=== PATIENT | female | born 1990 | race Caucasian/White ===

== ENCOUNTER → 2016-08-30 | Outpatient (CLI) | payer MEDICAID, OTHER, SELFPAY ==
[2016-08-30 13:50] LABS: BASO % 0.2 % (0.0-1.0); EOS # 0.1 K/mm3 (0.0-0.50); EOS % 1.6 % (0.0-3.0); LARGE UNSTAINED CELL # 0.1 K/mm3 (0.0-0.4); LARGE UNSTAINED CELL % 0.7 % (0.0-4.0); LYMPH # 1.5 K/mm3 (1.5-6.5); LYMPH % 17.6 % (24.0-44.0); MEAN CORPUSCULAR HEMOGLOBIN 27.9 pg (27.0-33.0); MEAN CORPUSCULAR HGB CONC 32.4 g/dl (32.0-36.5); MEAN CORPUSCULAR VOLUME 86.1 fl (80.0-96.0); MONO # 0.3 K/mm3 (0.0-0.8); MONO % 3.7 % (0.0-5.0); NEUTROPHILS # 6.2 K/mm3 (1.8-7.7); NEUTROPHILS % 76.3 % (36.0-66.0); PLATELET COUNT, AUTOMATED 191 k/mm3 (150-450); RED CELL DISTRIBUTION WIDTH 14.2 % (11.5-14.5); WHITE BLOOD COUNT 8.2 K/mm3 (4.0-10.0)
[2016-08-30 14:16] LABS: CONTROL LINE INT CTR LINE PRESENT; HIV SCRN NEGATIVE (NEGATIVE); HIV SCRN1 NEGATIVE (NEGATIVE)
[2016-08-30 14:18] LABS: HBsAg Prenatal NEGATIVE (NEGATIVE)
== END ==
LOC: M LAB 11:45
PROVIDERS: ATTEND Advanced Practice Midwife
DX: Z34.83 Encounter for supervision of other normal pregnancy, third trimester (principal)

== ENCOUNTER → 2016-09-01 | Outpatient (CLI) | payer MEDICAID, OTHER, SELFPAY ==
--- NOTE | 2016-09-01 12:11 | REP ---
Clinical: Anatomical evaluation. Comparison: None . Findings: Examination demonstrates a single live intrauterine in cephalic presentation. motion is identified by technologist. Placenta is noted click posterior fundally and grade one without evidence for placenta previa or abruption. Amniotic fluid volume is normal. Cervix measures the 3.5 cm in length and appears closed. No evidence for nuchal cord. Gestational age by LMP 36 weeks 5 days with SRIRAM 09/24/2016 . Gestational age by current measurements 37 weeks 5 days with SRIRAM 09/17/2016 . FHR equals 141 beats per minute. BPD 9.6 cm 39 weeks 2 days HC 33.9 cm 38 weeks 6 days AC 32.7 cm 36 weeks 4 days FL 7.2 cm 36 weeks 5 days HL 6.4 cm 36 weeks 6 days HC/AC ratio 1.04 Estimated weight 3147 grams ( 62nd percentile). Anatomical assessment demonstrates normal structures including cranium, choroid plexus, cavum, cerebellum/posterior fossa, lungs, ventricular outflow tracts, diaphragm, stomach, kidneys/bladder, spine. Impression: Single live advanced gestation in cephalic presentation demonstrating appropriate interval growth. No gross abnormalities are identified. Signed by Donny Olivia MD 09/01/2016 12:03 P
== END ==
LOC: M RAD 10:11 → EDUNIT# 10:30
PROVIDERS: ATTEND Specialist
DX: Z36 Encounter for antenatal screening of mother (principal); Z3A.36 36 weeks gestation of pregnancy

== ENCOUNTER 2016-09-24 03:29 | Inpatient (IN) | payer OTHER ==
[~2016-09-24] VITALS: Ht 172.7 cm; Wt 82.0 kg
[2016-09-24] VITALS (14 sets, daily range): BP systolic 82–112; BP diastolic 51–69
[2016-09-24 04:57] LABS: BASO % 0.3 % (0.0-1.0); EOS # 0.2 K/mm3 (0.0-0.50); EOS % 1.7 % (0.0-3.0); LARGE UNSTAINED CELL # 0.1 K/mm3 (0.0-0.4); LARGE UNSTAINED CELL % 0.5 % (0.0-4.0); LYMPH # 1.4 K/mm3 (1.5-6.5); LYMPH % 15.9 % (24.0-44.0); MEAN CORPUSCULAR HEMOGLOBIN 27.1 pg (27.0-33.0); MEAN CORPUSCULAR HGB CONC 32.7 g/dl (32.0-36.5); MEAN CORPUSCULAR VOLUME 82.9 fl (80.0-96.0); MONO # 0.4 K/mm3 (0.0-0.8); MONO % 4.9 % (0.0-5.0); NEUTROPHILS # 6.7 K/mm3 (1.8-7.7); NEUTROPHILS % 76.7 % (36.0-66.0); PLATELET COUNT, AUTOMATED 191 k/mm3 (150-450); RED CELL DISTRIBUTION WIDTH 14.9 % (11.5-14.5); WHITE BLOOD COUNT 8.7 K/mm3 (4.0-10.0)
[2016-09-24] MEDS ORDERED: AMPICILLIN SOD 2 GM in D5W MINI-BAG PLUS 100 ML IV ONE (05:00)
[2016-09-24] MEDS ORDERED: AMPICILLIN 2 GM VIAL As Ordered ONE (05:12)
[2016-09-24] MEDS ORDERED: ACET50TA PO (08:22)
[2016-09-24] MEDS ORDERED: PRENTAB9 PO (08:22)
[2016-09-24] MEDS: AMPICILLIN SOD 1 GM in D5W MINI-BAG PLUS 50 ML IV SCH ×3 (09:40→18:25)
[2016-09-24] MEDS: miSOPROStol 50 MCG 1/2 TAB (S0191) PO SCH ×2 (09:40→13:48)
--- NOTE | 2016-09-24 11:57 | HPE ---
DATE OF ADMISSION: 09/24/2016 REASON FOR ADMISSION: Induction of labor. HISTORY OF PRESENT ILLNESS: Mrs. Haley is a 26-year-old, 3, para 2, who presents at 40 weeks and 0 days estimated gestational age by last menstrual period and confirmed by mid trimester ultrasound for induction of labor. Her course is remarkable for transfer of care to our practice at 36 weeks, otherwise has been unremarkable. PAST MEDICAL HISTORY: None. PAST SURGICAL HISTORY: She has had a cholecystectomy. She has had tonsillectomy and adenoidectomy. LEEP procedure. PAST OBSTETRICAL HISTORY: She is a 3, para 2. She has had two term vaginal deliveries, both complicated by hemorrhage. Her first was also complicated by fetus with Group B streptococcus (GBS) sepsis. She has proven to 8 pounds 1 ounce. MEDICATIONS: - vitamins - Tylenol ALLERGIES: She has no known drug allergies. SOCIAL HISTORY: She denies any alcohol, tobacco or drug use during the . PHYSICAL EXAMINATION: VITAL SIGNS: Stable. She is afebrile. She has a category 1 heart rate tracing. GENERAL APPEARANCE: Well appearing. No acute distress. LUNGS: Clear to auscultation bilaterally. CARDIOVASCULAR: Regular rate and rhythm. ABDOMEN: Soft, gravid, nontender. Estimated weight is 3700 grams. CERVICAL EXAM: She is 1 cm dilated, 25% effaced, -3 station. LABORATORY DATA: Blood type is A positive. Antibody screen is negative. Rubella immune. RPR nonreactive. Hepatitis surface antigen negative. HIV negative. Hepatitis C is nonreactive. Chlamydia and Gonorrhea screens were negative. She had a normal 1-hour Glucola. She is GBS positive. ASSESSMENT: 1. Mrs. Haley is a 26-year-old, 3, para 2 who presents at 40 weeks 0 days estimated gestational age. 2. Reassuring status. 3. GBS positive. PLAN: 1. Admit to labor and delivery. 2. CBC, RPR, type and screen. 3. Antibiotics for GBS prophylaxis. 4. The patient has been thoroughly counseled for induction of labor and discuss medications, as long as procedures performed in labor and delivery. She has also been counseled and consented for emergency surgery, blood products, anesthesia and desires to proceed with admission. 5. We will initiate her induction with 50 mcg of misoprostol.
[2016-09-24] MEDS ORDERED: miSOPROStol 100 MCG TAB (S0191) PO ONE (18:30)
[2016-09-24] MEDS ORDERED: miSOPROStol 50 MCG 1/2 TAB (S0191) As Ordered ONE (19:04)
[2016-09-24] MEDS ORDERED: miSOPROStol 50 MCG 1/2 TAB (S0191) PO SCH (19:15)
[2016-09-24] MEDS ORDERED: FENTANYL 2MCG/ML ROPIVACAINE 0.2% NACL 250 ML CADD As Ordered ONE (19:59)
[2016-09-24] MEDS ORDERED: NALOXONE INJ 0.4 MG/1 ML VIAL (J2310) IV PRN (20:30)
[2016-09-24] MEDS ORDERED: EPIDURAL COMMENT XX SCH (20:30)
[2016-09-24] MEDS ORDERED: EPIDURAL/PCA KEYS XX PRN (20:30)
[2016-09-24] MEDS ORDERED: diphenhydrAMINE INJ 50MG/ML VIAL (J1200) IV PRN (20:30)
[2016-09-24] MEDS ORDERED: REFRIGERATOR IV KEYS XX PRN (20:30)
[2016-09-24] MEDS ORDERED: ONDANSETRON 4MG/2ML VIAL (J2405) IV PRN (20:30)
[2016-09-24] MEDS ORDERED: FENTANYL/ROPIVACAINE/NACL CADD 250 ML EPIDURAL SCH (20:30)
[2016-09-24] MEDS ORDERED: LACTATED RINGER'S 1000 ML IV PRN (20:30)
[2016-09-24] MEDS ORDERED: ePHEDrine SULFATE 25 MG/5 ML(5MG/ML) SYRINGE IV PRN (20:30)
[2016-09-24] MEDS ORDERED: OXYTOCIN 30 UNITS IN 0.9% NaCl 500ML IV BAG (J2590) As Ordered ONE (20:34)
[2016-09-24] MEDS ORDERED: OXYTOCIN DRIP 30 UNITS in APPROPRIATE DILUENT 1 EA IV SCH (21:39)
[2016-09-24] MEDS ORDERED: ACETAMINOPHEN 500 MG TAB PO PRN (21:45)
[2016-09-24] MEDS ORDERED: MOM 30ML SUSPENSION UDC PO PRN (21:45)
[2016-09-24] MEDS ORDERED: MEASLES,MUMPS,RUBELLA VACCINE INJ (MMR-II) (90707) SC SCH (21:45)
[2016-09-24] MEDS ORDERED: DIBUCAINE 1% OINTMENT 30GM TOP PRN (21:45)
[2016-09-24] MEDS ORDERED: ANUSOL HC CREAM 30GM TOP PRN (21:45)
[2016-09-24] MEDS ORDERED: RHOGAM 300 MCG (1500 IU) INJ (J2790) IM SCH (21:45)
[2016-09-24] MEDS ORDERED: DOCUSATE SODIUM 100 MG CAP PO PRN (21:45)
[2016-09-24] MEDS ORDERED: METHYLERGONOVINE MALEATE 0.2 MG TAB PO PRN (21:45)
[2016-09-25] MEDS: IBUPROFEN 800 MG TAB PO PRN ×3 (00:12→19:21)
--- NOTE | 2016-09-25 02:49 | DN ---
DATE OF DELIVERY: 09/24/2016 TIME OF : 21:12 GENDER: Female. APGARS: 9/9 WEIGHT: 3416 grams, or 7 pounds 9 ounces. ESTIMATED BLOOD LOSS: 300 mL ANESTHESIA: Epidural. LACERATIONS: None. COUNTS: 5 laparotomy sponges accounted for prior to and after delivery. DELIVERY NOTE: On 09/24/2016, at 21:12, Mrs. Haley, a 26-year-old 3, para 3 had a spontaneous vaginal delivery of a liveborn female infant, Apgars 9 and 9, weight 3416 grams, or 7 pounds 9 ounces. Head was delivered left occiput anterior (CHAPARRITA) over an intact perineum followed by delivery of anterior and posterior shoulder. Infant was handed to mother with a good cry. Cord was clamped times two, was cut by the father of the baby under my direction. Placenta was then drained and delivered grossly intact. A premixed bag of 500 mL of normal saline with 30 units of Pitocin was then bolused along with uterine massage until the uterus was firm. On inspection, the cervix, vagina, and perineum were grossly intact and hemostatic. Mother and baby recovered in stable condition. The couple decided to name their daughter
[2016-09-25 05:52] VITALS: BP 96/57
[2016-09-25] MEDS: PRENATAL VITAMIN TAB PO SCH (09:32)
[2016-09-25 18:00] VITALS: BP 112/62
[2016-09-26 06:26] VITALS: BP 116/56
[2016-09-26] MEDS ORDERED: IBUP-1114 PO (07:39)
[2016-09-26] MEDS: PRENATAL VITAMIN TAB PO SCH (08:12)
[2016-09-26] MEDS ORDERED: INFLUENZA QUADRIVALENT PF VACCINE 0.5ML SYRINGE/VIAL (90686) IM ONE ×2 (09:00)
[2016-09-26] MEDS ORDERED: ADACEL/BOOSTRIX VACCINE (DIPHTH/PERTUSS/ACELL/TETANUS)0.5ML SYR (90715) IM ONE ×2 (09:00)
== END 2016-09-26 12:10 | disposition home or self-care (01) | DRG 775 ==
LOC: M LDI 03:29 → M OBS 23:31
PROVIDERS: ADMIT Obstetrics & Gynecology; ATTEND Obstetrics & Gynecology
PROC: 10E0XZZ Delivery of Products of Conception, External Approach (ICD-10-PCS; principal; 2016-09-24)
PROC: 3E0DXGC Introduction of Other Therapeutic Substance into Mouth and Pharynx, External Approach (ICD-10-PCS; 2016-09-24)
DX: O48.0 Post-term pregnancy (principal); Z37.0 Single live birth; Z3A.40 40 weeks gestation of pregnancy; O99.820 Streptococcus B carrier state complicating pregnancy

== ENCOUNTER 2017-01-24 17:06 | Emergency (ER) | payer MEDICAID, OTHER ==
[~2017-01-24] VITALS: Ht 175.3 cm; Wt 81.5 kg
[~2017-01-24 17:06] MED LIST: ACET50TA PO; IBUP-1114 PO; PRENTAB9 PO
[2017-01-24 19:57] VITALS: BP 111/69
--- NOTE | 2017-01-25 01:24 | REP ---
Clinical: Trauma. Technique: AP, lateral, bilateral oblique and sunrise views left knee . Findings: The osseous structures and joint spaces are intact and normal. There is no evidence for acute fracture or dislocation. No joint effusion is appreciated. Surrounding soft tissues are unremarkable. No subcutaneous emphysema or radiodense foreign body. Impression: Normal examination. No acute fracture or dislocation. Signed by Donny Olivia MD 01/25/2017 01:16 A
== END 2017-01-24 20:09 | disposition home or self-care (01) ==
LOC: M ED 17:06
DX: S83.92XA Sprain of unspecified site of left knee, initial encounter (principal); W50.0XXA Accidental hit or strike by another person, initial encounter; Y92.099 Unspecified place in other non-institutional residence as the place of occurrence of the external cause; Y93.9 Activity, unspecified; Y99.9 Unspecified external cause status

== ENCOUNTER 2017-04-12 05:00 | Emergency (ER) | payer OTHER ==
[~2017-04-12] VITALS: Ht 172.7 cm; Wt 79.0 kg
[2017-04-12 06:03] VITALS: BP 110/62
== END 2017-04-12 06:35 | disposition home or self-care (01) ==
LOC: M ED 05:00
DX: S61.511A Laceration without foreign body of right wrist, initial encounter (principal); S61.411A Laceration without foreign body of right hand, initial encounter; W25.XXXA Contact with sharp glass, initial encounter; Y92.099 Unspecified place in other non-institutional residence as the place of occurrence of the external cause; Y93.89 Activity, other specified; Y99.9 Unspecified external cause status

== ENCOUNTER → 2018-03-05 | Outpatient (REF) ==
[2018-03-06 08:56] LABS: RUBELLA IgG QUALITATIVE IMMUNE (IMMUNE)
[2018-03-06 14:26] LABS: RUBEOLA IgG ANTIBODY 68.3 AU/mL (Immune >29.9)
== END ==
LOC: M LAB 13:54
DX: Z00.00 Encounter for general adult medical examination without abnormal findings (principal)

== ENCOUNTER → 2018-05-15 | Outpatient (CLI) | payer OTHER ==
[2018-05-15 14:33] LABS: BASO % 0.4 % (0.0-1.0); EOS # 0.1 10^3/uL (0.0-0.50); EOS % 1.3 % (0.0-3.0); HEMATOCRIT 42.1 % (36.0-47.0); IMMATURE GRANULOCYTE % 0.3 % (0-3.0); LYMPH # 1.6 10^3/uL (1.5-6.5); LYMPH % 21.2 % (24.0-44.0); MEAN CORPUSCULAR HEMOGLOBIN 28.4 pg (27.0-33.0); MEAN CORPUSCULAR HGB CONC 33.3 g/dl (32.0-36.5); MEAN CORPUSCULAR VOLUME 85.4 fl (80.0-96.0); MONO # 0.3 10^3/uL (0.0-0.8); MONO % 4.6 % (0.0-5.0); NEUTROPHILS # 5.4 10^3/uL (1.8-7.7); NEUTROPHILS % 72.2 % (36.0-66.0); PLATELET COUNT, AUTOMATED 245 10^3/uL (150-450); RED BLOOD COUNT 4.93 10^6/uL (4.00-5.40); RED CELL DISTRIBUTION WIDTH 13.2 % (11.5-14.5); WHITE BLOOD COUNT 7.4 10^3/uL (4.0-10.0)
[2018-05-15 15:26] LABS: HEPATITIS C VIRUS ABY INDEX < 0.0 INDEX (<0.8)
[2018-05-15 15:26] LABS: HBsAg Prenatal NEGATIVE (NEGATIVE); HIV 1&2 SCREEN CENTAUR NEGATIVE (NEGATIVE); RUBELLA IgG QUALITATIVE IMMUNE (IMMUNE)
[2018-05-15 16:42] LABS: CHLAMYDIA DNA AMPLIFICATION NEGATIVE (NEGATIVE); GC DNA AMPLIFICATION NEGATIVE (NEGATIVE)
== END ==
LOC: M SMT 10:07
DX: Z34.81 Encounter for supervision of other normal pregnancy, first trimester (principal); Z36.89 Encounter for other specified antenatal screening; Z3A.12 12 weeks gestation of pregnancy
CPT/HCPCS: 86762

== ENCOUNTER → 2018-07-01 | Outpatient (CLI) | payer OTHER ==
[~2018-07-01] MED LIST changes: -ACET50TA PO; +MAPA500T17 PO
--- NOTE | 2018-07-02 17:10 | REP ---
Obstetric sonography: History: Supervision of for anatomy. Findings: Scanning through the gravid uterus demonstrates a viable single intrauterine gestation in a cephalic lie. motion is observed and heart rate is recorded at 139 beats per minute. A fundal placenta is seen grade 0 without evidence of previa or abruption. Amniotic fluid is subjectively normal. Closed cervical length is 3.0 cm, measured transabdominally, 2.6 cm in length with Valsalva. No extrauterine abnormalities observed. No anomaly is seen. face and profile and spine are less than optimally seen today however due to position. The following additional anatomic structures are identified and felt to be sonographically unremarkable: cranium, choroid plexus, cavum, cerebellum and posterior fossa, lungs, four-chamber heart with left and right ventricular outflow tract views, diaphragm, left-sided stomach, abdominal wall cord insertion, three-vessel umbilical cord, kidneys and bladder, upper and lower extremities. Biometry chart: BPD 4.4 cm = 19 weeks 1 day HC 17.3 cm = 19 weeks 6 days AC 15.1 cm = 20 weeks 2 days FL 3.0 cm = 19 weeks 1 day HL 3.3 cm = 21 weeks 2 days CD 2.0 cm = 19 weeks 4 days HC/AC ratio normal 1.15. Cephalic index normal 0.68. Estimated weight 310 grams 0 pounds 10 ounces 42nd percentile for 19 weeks 6 days. Impression: Viable single intrauterine gestation at 19 weeks 6 days by today's composite criteria. SRIRAM by today's sonography November 19, 2018. Face and profile and spine are less than optimally seen due to position. Electronically Signed by Henry Perea MD 07/02/2018 06:36 P
== END ==
LOC: M LRY 13:30
PROVIDERS: ATTEND Obstetrics & Gynecology
DX: Z36.89 Encounter for other specified antenatal screening (principal); Z3A.19 19 weeks gestation of pregnancy

== ENCOUNTER → 2018-07-22 | Outpatient (CLI) | payer OTHER ==
[~2018-07-22] MED LIST changes: -MAPA500T17 PO; +MAPA500T2 PO
--- NOTE | 2018-07-23 03:53 | REP ---
Clinical: Anatomical evaluation. Comparison: 07/01/2018 . Findings: Examination demonstrates a single live intrauterine in cephalic presentation. motion is identified by technologist. Placenta is noted fundal and grade grade zero without evidence for placenta previa or abruption. Amniotic fluid volume is normal. Cervix measures 3.1 cm in length and appears closed. No evidence for nuchal cord. Gestational age by LMP 22 weeks 2 days with SRIRAM 11/23/2018 . Gestational age by current measurements 22 weeks 4 days with SRIRAM 11/21/2018 . FHR equals 141 beats per minute. Estimated weight 540 grams ( 44th percentile). Anatomical assessment demonstrates normal structures including cranium, choroid plexus, cerebellum/posterior fossa, facial features, lungs, four-chamber heart/ventricular outflow tracts, diaphragm, stomach, cord insertion/three-vessel cord, kidneys/bladder, spine, and extremities. Impression: 1. Single live intrauterine in cephalic presentation demonstrating appropriate interval growth. 2. In conjunction with prior examination anatomical assessment is complete and normal. Electronically Signed by Donny Olivia MD 07/23/2018 03:44 A
== END ==
LOC: M LRY 08:29
PROVIDERS: ATTEND Obstetrics & Gynecology
DX: Z34.82 Encounter for supervision of other normal pregnancy, second trimester (principal); Z3A.22 22 weeks gestation of pregnancy

== ENCOUNTER → 2018-08-28 | Outpatient (CLI) | payer OTHER ==
[2018-08-28 16:55] LABS: HEMATOCRIT 32.9 % (36.0-47.0); HEMOGLOBIN 10.6 g/dl (12.0-15.5); MEAN CORPUSCULAR HEMOGLOBIN 28.1 pg (27.0-33.0); MEAN CORPUSCULAR HGB CONC 32.2 g/dl (32.0-36.5); MEAN CORPUSCULAR VOLUME 87.3 fl (80.0-96.0); PLATELET COUNT, AUTOMATED 194 10^3/uL (150-450); RED BLOOD COUNT 3.77 10^6/uL (4.00-5.40); WHITE BLOOD COUNT 9.3 10^3/uL (4.0-10.0)
== END ==
LOC: M LAB 15:20
PROVIDERS: ATTEND Advanced Practice Midwife
DX: Z34.82 Encounter for supervision of other normal pregnancy, second trimester (principal)

== ENCOUNTER 2018-09-17 18:08 | Outpatient (CLI) | payer OTHER ==
[~2018-09-17] VITALS: Ht 172.7 cm; Wt 89.4 kg
[2018-09-17 18:26] VITALS: BP 152/96
[2018-09-17] MEDS ORDERED: PRENTAB9 PO (18:30)
[2018-09-17] MEDS ORDERED: guaiFENesin SYRUP 200 MG/10 ML UDC PO PRN (19:30)
[2018-09-17 19:34] LABS: HEMATOCRIT 31.3 % (36.0-47.0); HEMOGLOBIN 10.2 g/dl (12.0-15.5); MEAN CORPUSCULAR HEMOGLOBIN 27.9 pg (27.0-33.0); MEAN CORPUSCULAR HGB CONC 32.6 g/dl (32.0-36.5); MEAN CORPUSCULAR VOLUME 85.5 fl (80.0-96.0); PLATELET COUNT, AUTOMATED 171 10^3/uL (150-450); RED BLOOD COUNT 3.66 10^6/uL (4.00-5.40); WHITE BLOOD COUNT 7.2 10^3/uL (4.0-10.0)
[2018-09-17] MEDS ORDERED: PSEUDOEPHEDRINE 30 MG TAB PO PRN (19:45)
[2018-09-17 19:56] LABS: ALBUMIN 2.8 GM/DL (3.2-5.2); ALT/SGPT 11 U/L (12-78); BILIRUBIN,TOTAL 0.3 MG/DL (0.2-1.0); BLOOD UREA NITROGEN 5 MG/DL (7-18); CARBON DIOXIDE LEVEL 23 MEQ/L (21-32); CHLORIDE LEVEL 110 MEQ/L (98-107); CREATININE FOR GFR 0.45 MG/DL (0.55-1.30); GLOMERULAR FILTRATION RATE > 60.0 (>60); GLUCOSE, FASTING 72 MG/DL (70-100); LDH LACTATE DEHYDROGENASE 176 U/L (84-246); SODIUM LEVEL 141 MEQ/L (136-145); TOTAL PROTEIN 6.1 GM/DL (6.4-8.2); URIC ACID 3.6 MG/DL (2.6-6.0)
[2018-09-17 21:01] LABS: INFLUENZA A AMPLIFICATION POSITIVE (NEGATIVE); INFLUENZA B AMPLIFICATION NEGATIVE (NEGATIVE)
[2018-09-17 21:32] LABS: TOTAL PROTEIN,RANDOM URINE 11.8 MG/DL (0.0-12.0)
[2018-09-17] MEDS ORDERED: OSEL75CA PO (21:32)
[2018-09-17] MEDS ORDERED: OSELTAMIVIR PHOSPHATE 75 MG CAP (TAMIFLU) PO ONE (21:45)
== END 2018-09-17 22:00 | disposition home or self-care (01) ==
LOC: M LDO 18:08
PROVIDERS: ATTEND Obstetrics & Gynecology
DX: O21.2 Late vomiting of pregnancy (principal); O99.89 Other specified diseases and conditions complicating pregnancy, childbirth and the puerperium; R05 Cough; O99.519 Diseases of the respiratory system complicating pregnancy, unspecified trimester; J06.9 Acute upper respiratory infection, unspecified; Z3A.30 30 weeks gestation of pregnancy

== ENCOUNTER 2018-11-19 17:54 | Inpatient (IN) | payer OTHER ==
[2018-11-19] VITALS (8 sets, daily range): BP systolic 95–121; BP diastolic 53–63
[~2018-11-19] VITALS: Ht 175.3 cm; Wt 89.4 kg
[~2018-11-19 17:54] MED LIST changes: +OSEL75CA PO
[2018-11-19] MEDS ORDERED: TUMS500C PO (18:20)
[2018-11-19 19:07] LABS: HEMATOCRIT 31.8 % (36.0-47.0); HEMOGLOBIN 10.1 g/dl (12.0-15.5); MEAN CORPUSCULAR HEMOGLOBIN 25.4 pg (27.0-33.0); MEAN CORPUSCULAR HGB CONC 31.8 g/dl (32.0-36.5); MEAN CORPUSCULAR VOLUME 80.1 fl (80.0-96.0); PLATELET COUNT, AUTOMATED 277 10^3/uL (150-450); RED BLOOD COUNT 3.97 10^6/uL (4.00-5.40); WHITE BLOOD COUNT 11.3 10^3/uL (4.0-10.0)
[2018-11-19] MEDS ORDERED: PENICILLIN G POTASSIUM IV 5 MU in D5W MINI-BAG PLUS 100 ML IV STA (20:09)
[2018-11-19] MEDS ORDERED: OXYTOCIN DRIP 30 UNITS in APPROPRIATE DILUENT 1 EA IV SCH (20:15)
[2018-11-19] MEDS: LR 1,000 ML IV SCH (20:54)
--- NOTE | 2018-11-19 23:23 | NUR ---
L&D Note: S: Doing well w/o complaints. Pain is manageable. O: vss, AF FHR 160s, moderate variability and spont accelerations. Contractions q3-4mins. pitocin 4mU Gen: well appearing cx: 1-2/50/-2 Cook cath placed 60/30ml A/P:28yo at 39w3d wks undergoing IOL reassuring status -will reevaluate in 4-5 hrs, or after cook cath comes out -good candidate for epidural Shruthi MD Siva
--- NOTE | 2018-11-19 23:52 | HPE ---
DATE OF ADMISSION: 11/19/2018 REASON FOR ADMISSION: Induction of labor. HISTORY OF PRESENT ILLNESS: Ms. Haley is a 28-year-old 4, para 3 who presents at 39 weeks 3 days estimated gestational age by last menstrual period confirmed by first trimester ultrasound who initially presented after falling down a flight of stairs. She reports that she slipped, collided on her side down approximately 6 or 7 steps. She denies any vaginal bleeding or leakage of fluid. She does report contractions as well as pelvic pain. She reports active movement. Her course has been unremarkable. She initiated care in her first trimester, has been appropriate throughout. PAST MEDICAL HISTORY: None. PAST SURGICAL HISTORY: 1. Cholecystectomy. 2. Loop electrosurgical excision procedure (LEEP) procedure. PAST OBSTETRICAL HISTORY: She is a 4, para 3. She has had three term vaginal deliveries. Her first delivery was complicated by hemorrhage as well as GBS sepsis. She is proven to 8 pounds 1 ounce. MEDICATIONS: Include vitamins. ALLERGIES: She has no known drug allergies. SOCIAL HISTORY: Denies any alcohol, tobacco or drug use during her . PHYSICAL EXAMINATION: Vital signs: Stable. She is afebrile. She has a heart rate tracing with heart rate 140s with spontaneous accelerations, moderate variability, no decelerations. She has contractions on tocometer approximately every 5-7 minutes. General appearance: No acute distress. Lungs Her lungs are clear to auscultation bilaterally. Cardiovascular: Heart regular rate rhythm. Abdomen is gravid, nontender. Cervical exam: She is 1-2 cm dilated, 50% effaced -3 station. LABS: Her blood type is A+, antibody screen is negative. Rubella is immune. RPR is nonreactive. Hepatitis surface antigen is negative. HIV is negative. Hepatitis C is nonreactive. Chlamydia and gonorrhea screens are negative. She had a normal 1-hour Glucola. ASSESSMENT: 1. Ms. Haley is a 28-year-old 4, para 3 at 39 weeks and 3 days estimated gestational age who is status post a fall and currently bandar. 2. Reassuring status. 3. History of sepsis. PLAN: Considering her injury earlier today along with the fact that she is bandar several hours after her fall, discussion was had for induction of labor versus continued observation. Discussed risks, benefits of each option. After discussion, couple has decided to proceed with an induction of labor. I discussed her risks as well as benefits and alternatives to induction of labor. I discussed medications as well as procedures performed in labor and delivery. All questions were answered, and they decided to proceed with induction with Pitocin. KODAK
[2018-11-20] VITALS (77 sets, daily range): BP systolic 77–128; BP diastolic 42–71
[2018-11-20] MEDS: LR 1,000 ML IV SCH ×3 (00:32→06:05)
[2018-11-20] MEDS: PENICILLIN G POTASSIUM IV 2.5 MU in APPROPRIATE DILUENT 1 EA IV SCH ×3 (01:02→09:11)
[2018-11-20] MEDS ORDERED: FENTANYL 2MCG/ML ROPIVACAINE 0.2% IN 0.9% NACL 100ML IVBAG As Ordered ONE (01:34)
[2018-11-20] MEDS ORDERED: ePHEDrine SULFATE 25 MG/5 ML(5MG/ML) SYRINGE As Ordered ONE (02:15)
[2018-11-20] MEDS ORDERED: ONDANSETRON 4MG/2ML VIAL (J2405) IV PRN (02:30)
[2018-11-20] MEDS ORDERED: REFRIGERATOR IV KEYS XX PRN (02:30)
[2018-11-20] MEDS ORDERED: FENTANYL/ROPIVACAINE/NACL BAG 100 ML EPIDURAL SCH (02:30)
[2018-11-20] MEDS ORDERED: NALOXONE INJ 0.4 MG/1 ML VIAL (J2310) IV PRN (02:30)
[2018-11-20] MEDS ORDERED: LACTATED RINGER'S 1000 ML IV PRN (02:30)
[2018-11-20] MEDS ORDERED: ePHEDrine SULFATE 25 MG/5 ML(5MG/ML) SYRINGE IV PRN (02:30)
[2018-11-20] MEDS ORDERED: diphenhydrAMINE INJ 50MG/ML VIAL (J1200) IV PRN (02:30)
[2018-11-20] MEDS ORDERED: EPIDURAL/PCA KEYS XX PRN (02:30)
[2018-11-20] MEDS ORDERED: EPIDURAL COMMENT XX SCH (02:30)
--- NOTE | 2018-11-20 06:37 | NUR ---
L&D Note: S: Doing well w/o complaints. Comfortable after epidural. O: vss, AF FHR 130s, moderate variability and spont accelerations. Contractions q3-4mins. pitocin 12mU Gen: well appearing cx: 4/75/-2, AROM clear A/P:28yo at 39w3d wks undergoing IOL reassuring status -anticipate Shruthi Paniagua MD
[2018-11-20] MEDS ORDERED: LR 500 ML IV ONE (11:30)
[2018-11-20] MEDS ORDERED: ePHEDrine INJ 50 MG/ML VIAL IV PRN (11:30)
[2018-11-20] MEDS ORDERED: OXYTOCIN 30 UNITS IN 0.9% NaCl 500ML IV BAG (J2590) As Ordered ONE (13:36)
[2018-11-20] MEDS ORDERED: OXYTOCIN DRIP 30 UNITS in APPROPRIATE DILUENT 1 EA IV SCH ×4 (14:42)
[2018-11-20] MEDS ORDERED: DOCUSATE SODIUM 100 MG CAP PO PRN (14:45)
[2018-11-20] MEDS ORDERED: METHYLERGONOVINE MALEATE 0.2 MG/ML VIAL (J2210) IM ONE (14:45)
[2018-11-20] MEDS ORDERED: ACETAMINOPHEN TAB 650MG DOSE (2X325MG) PO PRN (14:45)
[2018-11-20] MEDS ORDERED: IBUPROFEN 800 MG TAB PO PRN (14:45)
[2018-11-20] MEDS ORDERED: RHOGAM 300 MCG (1500 IU) INJ (J2790) IM SCH (14:45)
[2018-11-20] MEDS ORDERED: DIBUCAINE 1% OINTMENT 30GM TOP PRN (14:45)
[2018-11-20] MEDS ORDERED: METHYLERGONOVINE MALEATE 0.2 MG TAB PO PRN (14:45)
[2018-11-20] MEDS ORDERED: MEASLES,MUMPS,RUBELLA VACCINE INJ (MMR-II) (90707) SC SCH (14:45)
[2018-11-20] MEDS ORDERED: ACETAMINOPHEN 500 MG TAB PO PRN (14:45)
--- NOTE | 2018-11-20 14:46 | DN ---
DATE OF DELIVERY: Nellie is 28-year-old, 4, para 4-0-0-4 now, was admitted to labor and delivery for induction of labor. Intravenous (IV) Pitocin was used and labor did ensue. She used an epidural for her labor coping. She progressed to full dilation at 1237 hours. She pushed to a normal spontaneous vaginal delivery of a live male in left occiput anterior (CHAPARRITA) position with restitution to left occiput transverse (LOT) position at 1255 hours. There was a nuchal cord times one loose reduced manually at the time of delivery. [place] shoulders delivered spontaneously and the corpus immediately followed. He was placed on the maternal abdomen crying and active. The cord was clamped times two and cut by the father of the baby under my direction. Spontaneous expulsion of an intact placenta with three-vessel cord by Schultze mechanism was at 1304 hours. Uterine hemostasis achieved with IV Pitocin rapid infusion, uterine fundal massage, Methergine 0.2 mg intramuscular (IM). Estimated blood loss 350 mL. Perineum and vagina inspected. Noted to have bilateral labial abrasions. No need for repair. Her abrasions were hemostatic. male weighed 8 pounds 9 ounces (3890 grams), score 8/9. At the close of delivery, lap counts, needle counts and instrument counts were correct and verified.
[2018-11-20] MEDS: SLF 3 ML SYR IV SCH ×2 (15:00→21:14)
[2018-11-20] MEDS ORDERED: SLF 3 ML SYR IV PRN (16:30)
[2018-11-20] MEDS: IBUPROFEN 600 MG TAB PO PRN (20:22)
[2018-11-21] MEDS: IBUPROFEN 600 MG TAB PO PRN ×3 (05:34→19:29)
[2018-11-21 06:25] VITALS: BP 95/53
[2018-11-21] MEDS: PRENATAL VITAMINS CHEWABLE TABLET PO SCH (09:01)
[2018-11-21 18:11] VITALS: BP 107/63
[2018-11-22] MEDS: IBUPROFEN 600 MG TAB PO PRN (05:00)
[2018-11-22 06:00] VITALS: BP 104/56
[2018-11-22] MEDS: PRENATAL VITAMINS CHEWABLE TABLET PO SCH (07:51)
[2018-11-22] MEDS ORDERED: IBUP-1114 PO (08:22)
== END 2018-11-22 13:20 | disposition home or self-care (01) | DRG 560 ==
LOC: M LDO 17:54 → M LDI 19:51 → M OBS 11-20 15:30
PROVIDERS: ADMIT Obstetrics & Gynecology; ATTEND Advanced Practice Midwife
PROC: 3E033VJ Introduction of Other Hormone into Peripheral Vein, Percutaneous Approach (ICD-10-PCS; 2018-11-19)
PROC: 10E0XZZ Delivery of Products of Conception, External Approach (ICD-10-PCS; principal; 2018-11-20)
DX: O9A.22 Injury, poisoning and certain other consequences of external causes complicating childbirth (principal); O69.81X0 Labor and delivery complicated by cord around neck, without compression, not applicable or unspecified; Z3A.39 39 weeks gestation of pregnancy; Z37.0 Single live birth; W10.9XXA Fall (on) (from) unspecified stairs and steps, initial encounter; S39.93XA Unspecified injury of pelvis, initial encounter; Y92.009 Unspecified place in unspecified non-institutional (private) residence as the place of occurrence of the external cause; O99.824 Streptococcus B carrier state complicating childbirth

== ENCOUNTER → 2019-02-28 | Outpatient (CLI) | payer OTHER ==
[~2019-02-28] MED LIST changes: +TUMS500C PO
--- NOTE | 2019-02-28 10:33 | REP ---
OBSTETRIC SONOGRAPHY: HISTORY: Supervision of dating and viability. FINDINGS: Transabdominal scanning demonstrates a single living intrauterine gestation. The crown-rump length of the embryonic pole is 11 mm. This corresponds with a gestational age estimate of 7 weeks 2 days. heart rate is recorded at 152 beats per minute. There is a small subchorionic hemorrhage visible 6 x 21 x 8 mm. No extrauterine abnormalities observed. IMPRESSION: Viable single intrauterine gestation at 7 weeks 2 days by crown-rump length. SRIRAM by sonography October 15, 2019. Small subchorionic fluid collection consistent with hemorrhage. Electronically Signed by Henry Perea MD 02/28/2019 10:54 A
== END ==
LOC: M RAD 07:36
PROVIDERS: ATTEND Nurse Practitioner Family
DX: Z32.01 Encounter for pregnancy test, result positive (principal)

== ENCOUNTER → 2019-07-22 | Outpatient (REF) | payer OTHER | LOC: M SFHCWAGY 11:33 | PROVIDERS: ATTEND Advanced Practice Midwife | DX: Z12.4 Encounter for screening for malignant neoplasm of cervix (principal) ==

== ENCOUNTER → 2019-08-19 | Outpatient (REF) | payer OTHER ==
[2019-08-19 11:32] LABS: BASO % 0.3 % (0.0-1.0); EOS # 0.4 10^3/uL (0.0-0.5); EOS % 6.2 % (0.0-3.0); HEMATOCRIT 41.3 % (36.0-47.0); LYMPH # 1.6 10^3/uL (1.5-5.0); LYMPH % 27.5 % (24.0-44.0); MEAN CORPUSCULAR HEMOGLOBIN 27.3 pg (27.0-33.0); MEAN CORPUSCULAR HGB CONC 31.5 g/dl (32.0-36.5); MEAN CORPUSCULAR VOLUME 86.8 fl (80.0-96.0); MONO # 0.4 10^3/uL (0.0-0.8); NEUTROPHILS # 3.5 10^3/uL (1.5-8.5); NEUTROPHILS % 59.8 % (36.0-66.0); PLATELET COUNT, AUTOMATED 229 10^3/uL (150-450); RED BLOOD COUNT 4.76 10^6/uL (4.00-5.40); WHITE BLOOD COUNT 5.8 10^3/uL (4.0-10.0)
[2019-08-19 11:47] LABS: ALT/SGPT 21 U/L (12-78); BILIRUBIN,TOTAL 0.3 MG/DL (0.2-1.0); BLOOD UREA NITROGEN 10 MG/DL (7-18); CALCIUM LEVEL 9.1 MG/DL (8.5-10.1); CARBON DIOXIDE LEVEL 27 MEQ/L (21-32); CHLORIDE LEVEL 109 MEQ/L (98-107); CHOLESTEROL LEVEL 160 MG/DL (<200); CHOLESTEROL RISK RATIO 3.636 (<5); CREATININE FOR GFR 0.73 MG/DL (0.55-1.30); FOLATE 9.1 NG/ML; FREE T4 1.07 NG/DL (0.76-1.46); GLOMERULAR FILTRATION RATE > 60.0 (>60); GLUCOSE, FASTING 92 MG/DL (70-100); HDL CHOLESTEROL 44 MG/DL (>40); LDL CHOLESTEROL 91 MG/DL (<100); NON-HDL-C 116 MG/DL; POTASSIUM SERUM 4.1 MEQ/L (3.5-5.1); SODIUM LEVEL 142 MEQ/L (136-145); TOTAL 25(OH) VITAMIN D 16.2 NG/ML (30.0-100.0); TOTAL PROTEIN 7.4 GM/DL (6.4-8.2); TRIGLYCERIDES LEVEL 126 MG/DL (<150); VITAMIN B12 LEVEL 314 PG/ML
[2019-08-19 11:51] LABS: HEMOGLOBIN A1c 5.5 %
== END ==
LOC: M LAB REF 11:12
PROVIDERS: ATTEND Nurse Practitioner Family
DX: Z13.29 Encounter for screening for other suspected endocrine disorder (principal); F41.8 Other specified anxiety disorders; E66.9 Obesity, unspecified; R51 Headache

== ENCOUNTER → 2020-01-20 | Outpatient (REF) | payer OTHER | LOC: M LAB REF 17:11 | PROVIDERS: ATTEND Physician Assistant | DX: R35.0 Frequency of micturition (principal); N30.00 Acute cystitis without hematuria; M54.5 Low back pain ==

== ENCOUNTER → 2020-09-02 | Outpatient (REF) | payer OTHER ==
[~2020-09-02] MED LIST changes: +FLUO20CA22; +JUNE1.5T
[2020-09-02 14:21] LABS: HEMOGLOBIN A1c 5.3 %
[2020-09-02 14:36] LABS: FREE T4 0.83 NG/DL (0.76-1.46); THYROID STIMULATING HORMONE 2.92 uIU/ML (0.358-3.740)
[2020-09-02 14:38] LABS: FOLLICLE STIMULATING HORMONE 5.3 mIU/mL; LUTEINIZING HORMONE 1.8 mIU/mL; PROLACTIN 6.8 NG/ML
[2020-09-03 16:08] LABS: DEHYDROEPIANDROSTERONE SULFATE 37.5 ug/dL (84.8-378.0); TESTOSTERONE FREE (DIRECT) 0.7 pg/mL (0.0-4.2)
== END ==
LOC: M PLALAB 11:09
PROVIDERS: ATTEND Obstetrics & Gynecology
DX: N92.6 Irregular menstruation, unspecified (principal)
CPT/HCPCS: 36415; 82627; 83001; 83002; 83036; 84146; 84402; 84403; 84439; 84443; G0463

== ENCOUNTER 2020-09-08 17:01 | Emergency (ER) | payer OTHER ==
[~2020-09-08] VITALS: Ht 175.3 cm; Wt 97.4 kg
[~2020-09-08 17:01] MED LIST changes: -FLUO20CA22; -JUNE1.5T
--- OUTSIDE RECORDS SUMMARY | 2020-09-08 17:06 | CCD ---
Author Author [facility] Organization [facility] Address Unknown Phone Unavailable Care Team Providers Care Stove Refinisher Name Role Phone Cindy Alejandra Unavailable [phone] Casa, Karla PHLEBOTOMIST ASSOCIATE PHLEBOTOMIST ASSOCIATE Unavailable Unavailable [place], A Karla PHLEBOTOMIST ASSOCIATE Unavailable Unavailable Casa, A Karla PHLEBOTOMIST ASSOCIATE Unavailable Unavailable Casa, A Karla PHLEBOTOMIST ASSOCIATE Unavailable Unavailable Casa, A Karla PHLEBOTOMIST ASSOCIATE Unavailable Unavailable Casa, A Karla PHLEBOTOMIST ASSOCIATE Unavailable Unavailable Casa, A Karla PHLEBOTOMIST ASSOCIATE Unavailable Unavailable Casa, A Karla PHLEBOTOMIST ASSOCIATE Unavailable Unavailable Casa, A Karla PHLEBOTOMIST ASSOCIATE Unavailable Unavailable Casa, A Karla PHLEBOTOMIST ASSOCIATE Unavailable Unavailable Casa, A Karla PHLEBOTOMIST ASSOCIATE Unavailable Unavailable [place], A Karla PHLEBOTOMIST ASSOCIATE Unavailable Unavailable [place], A Karla PHLEBOTOMIST ASSOCIATE Unavailable Unavailable Casa, A Karla PHLEBOTOMIST ASSOCIATE Unavailable Unavailable Casa, A Karla PHLEBOTOMIST ASSOCIATE Unavailable Unavailable Casa, A Karla PHLEBOTOMIST ASSOCIATE Unavailable Unavailable Casa, A Karla PHLEBOTOMIST ASSOCIATE Unavailable Unavailable Casa, A Karla PHLEBOTOMIST ASSOCIATE Unavailable Unavailable Casa, A Karla PHLEBOTOMIST ASSOCIATE Unavailable Unavailable Casa, A Karla PHLEBOTOMIST ASSOCIATE Unavailable Unavailable Casa, A Karla PHLEBOTOMIST ASSOCIATE Unavailable Unavailable Casa, A Karla PHLEBOTOMIST ASSOCIATE Unavailable Unavailable Casa, A Karla PHLEBOTOMIST ASSOCIATE Unavailable Unavailable Casa, A Karla PHLEBOTOMIST ASSOCIATE Unavailable Unavailable Casa, A Karla PHLEBOTOMIST ASSOCIATE Unavailable Unavailable Casa, A Karla PHLEBOTOMIST ASSOCIATE Unavailable Unavailable Casa, A Karla PHLEBOTOMIST ASSOCIATE Unavailable Unavailable Casa, A Karla PHLEBOTOMIST ASSOCIATE Unavailable Unavailable Casa, A Karla PHLEBOTOMIST ASSOCIATE Unavailable Unavailable Re-disclosure Warning The records that you are about to access may contain information from federally-assisted alcohol or drug abuse programs. If such information is present, then the following federally mandated warning applies: This information has been disclosed to you from records protected by federal confidentiality rules (42 CFR part 2). The federal rules prohibit you from making any further disclosure of this information unless further disclosure is expressly permitted by the written consent of the person to whom it pertains or as otherwise permitted by 42 CFR part 2. A general authorization for the release of medical or other information is NOT sufficient for this purpose. The Federal rules restrict any use of the information to criminally investigate or prosecute any alcohol or drug abuse patient.The records that you are about to access may contain highly sensitive health information, the redisclosure of which is protected by Article 27-F of the [facility] Public Health law. If you continue you may have access to information: Regarding HIV / AIDS; Provided by facilities licensed or operated by the [facility] Office of Mental Health; or Provided by the [facility] Office for People With Developmental Disabilities. If such information is present, then the following [facility] mandated warning applies: This information has been disclosed to you from confidential records which are protected by state law. State law prohibits you from making any further disclosure of this information without the specific written consent of the person to whom it pertains, or as otherwise permitted by law. Any unauthorized further disclosure in violation of state law may result in a fine or correction sentence or both. A general authorization for the release of medical or other information is NOT sufficient authorization for further disc losure. Allergies and Adverse Reactions Type Description Substance Reaction Status Data Source(s ) Allergy to substance Allergy to substance Allergy to substance EL ([facility]) Encounters Encounter Providers Location Date Indications Data Source(s ) Cindy Alejandra LMSW: [address] [place] [id number], Ph. Attender: Cindy SOTO - [facility] Medical 05/25/2020 12:00:00 AM EST [facility] ([facility]) Outpatient Attender: BENEDICT MCMULLEN 04/09/2020 03:44:00 P M EDT [facility] Outpatient Attender: Karla SHINEP FP 04/05/2020 12:2 5:01 AM EDT [facility] Outpatient Attender: BENEDICT SHINEP FP 03/29/2020 02:39:00 P M EDT [facility] Outpatient Attender: BENEDICT SHINEP FP 2020 03:04:00 P M EDT [facility] Outpatient Attender: BENEDICT SHINEP FP 03/10/2020 03:39:00 P M EDT [facility] Outpatient Attender: Karla Cormier PHLEBOTOMIST ASSOCIATE FP 02/26/2020 12:2 4:01 AM EDT [facility] Outpatient Attender: BENEDICT SHINEP FP 02/24/2020 08:37:01 A M EDT [facility] Outpatient Attender: BENEDICT SHINEP FP 02/23/2020 03:42:02 P M EDT [facility] Outpatient Attender: BENEDICT Cormier PHLEBOTOMIST ASSOCIATE FP 02/18/2020 10:07:00 A M EDT [facility] Outpatient Attender: BENEDICT Cormier PHLEBOTOMIST ASSOCIATE FP 02/09/2020 09:07:00 A M EDT [facility] Outpatient Attender: BENEDICT Cormier PHLEBOTOMIST ASSOCIATE FP 01/26/2020 03:14:02 P M EDT [facility] Outpatient Attender: BENEDICT SHINEP FP 01/26/2020 03:14:02 P M EDT [facility] Outpatient Attender: BENEDICT Cormier PHLEBOTOMIST ASSOCIATE FP 01/26/2020 03:14:02 P M EDT [facility] Outpatient Attender: Karla SHINEP FP 01/26/2020 03:1 4:02 PM EDT [facility] Outpatient Attender: Karla SHINEP FP 01/26/2020 11:1 7:04 AM EDT [facility] Outpatient Attender: BENEDICT SHINEP FP 01/26/2020 08:31:01 A M EDT [facility] Outpatient Attender: Karla SHINEP FP 01/22/2020 05:1 8:01 PM EDT [facility] Outpatient Attender: BENEDICT SHINEP FP 01/22/2020 05:18:00 P M EDT [facility] Outpatient Attender: BENEDICT SHINEP FP 01/22/2020 09:57:00 A M EDT [facility] Outpatient Attender: BENEDICT Cormier PHLEBOTOMIST ASSOCIATE 01/21/2020 03:19:00 P M EDT [facility] Outpatient Attender: BENEDICT Cormier PHLEBOTOMIST ASSOCIATE 01/20/2020 10:52:01 A M EDT [facility] Outpatient Attender: BENEDICT Cormier PHLEBOTOMIST ASSOCIATE 01/20/2020 09:53:01 A M EDT [facility] Outpatient Attender: BENEDICT Cormier PHLEBOTOMIST ASSOCIATE 01/05/2020 10:10:01 A M EDT [facility] Outpatient Attender: BENEDICT Cormier PHLEBOTOMIST ASSOCIATE 12/12/2019 10:06:01 A M EDT [facility] Outpatient Attender: BENEDICT Cormier PHLEBOTOMIST ASSOCIATE 12/11/2019 02:37:00 P M EDT [facility] Outpatient Attender: BENEDICT Cormier PHLEBOTOMIST ASSOCIATE 12/11/2019 02:28:00 P M EDT [facility] Attender: [facility]11[facility]2019 02:27:00 P M EDT [facility] Outpatient Attender: Karla SHINEP 12/09/2019 04:4 9:59 PM EDT [facility] Outpatient Attender: BENEDICT Cormier PHLEBOTOMIST ASSOCIATE 12/09/2019 12:52:01 P M EDT [facility]patient Attender: BENEDICT Cormier PHLEBOTOMIST ASSOCIATE 11/20/2019 11:53:00 A M EDT [facility]11[facility]2019 01:46:02 P M EDT [facility] Attender: [facility]la [facility] 11/11/2019 01:4 6:01 PM EDT [facility] Attender: Karla [facility]CMULLEN [facility] 09/26/2019 03:0 5:01 PM EDT [facility] Attender: BENEDICT MCMULLEN [facility] 09/16/2019 04:40:01 P M EST [facility] Out[facility] Attender: BENEDICT SHINEP [facility] 09/16/2019 04:40:00 P M EST [facility] Outpatient Attender: Karla MCMULLEN [facility] 09/16/2019 04:3 9:01 PM [facility]/16/2019 04:39:00 P M [facility] 09/15/2019 01:30:00 P [facility]: [facility]a [facility] 08/27/2019 01:1 4:01 PM [facility]/19/2019 09:20:01 A M [facility] 08/19/2019 09:05:01 A [facility] 08/19/2019 08:57:01 A M [facility] Outpatient Attender: Karla Cormier [facility] 08/06/2019 09:1 1:01 AM [facility] 08/05/2019 03:27:01 P [facility] Outpatient Attender: BENEDICT Cormier [facility] 08/05/2019 03:26:01 P [facility]/05/2019 03:25:00 P [facility] Outpatient Attender: BENEDICT Cormier [facility] 08/05/2019 03:00:03 P M [facility] 08/05/2019 02:15:01 P [facility] Outpatient Attender: BENEDICT Cormier [facility] 08/05/2019 02:15:00 P [facility]/05/2019 01:45:00 P M [facility] 08/05/2019 01:43:00 P [facility] [address] [phone] 07/22/2019 12:00:00 AM EST [facility] ([facility]) Insurance Providers Payer name Policy type / Coverage type Policy ID Covered constitution party ID Covered constitution party's relationship to gibson Policy [place] Plan Information [facility] [id number] SP [id number] [facility] P [id number] S [id number] Managed Care - [facility] Community Plan S [id number] S [id number] Medicaid O [id number] S [id number] Managed Care - [facility] Community Plan S [id number] S [id number] UNHC COMMUNITY PLAN MCDO [id number] SP [id number] UNHC COMMUNITY PLAN MCDO [id number] SP [id number] [facility](MCAID) O [id number] S [id number] ANSI-Medicaid [id number] MARYAN [id number] SP [id number] [facility] Health Maintenance Organization (HMO) [id number] Self [id number] MEDICAID [id number] SP [id number] MEDICAID [id number] SP [id number] [facility] [id number] [facility] [id number] SELF PAY ONLY [id number] SP [id number] SELF PAY ONLY [id number] SP MARYAN [id number] SP [id number] Problems, Conditions, and Diagnoses Code Display Name Description Problem Type Effective Dates Data Source(s) V70.0 Encounter for general adult medical exam ination with abnormal findings Encounter for general adult medical examination with abnormal findings 02/23/2020 03:41:53 PM EDT [facility] [id number] Encounter for administrative examination s, unspecified Encounter for administrative examinations, unspecified 02/23/2020 03:41:53 PM EDT [facility] [id number] Insomnia, unspecified Insomnia, unspecified 02/23/2020 03:41:53 PM EDT [facility] [id number] Procedure by method Procedure by Method Problem 0 02/23/2020 12:00:00 AM EDT [place] [place] ([facility]) [id number] Finding related to sleep Finding Related to Sleep Prob margarito 02/23/2020 12:00:00 AM EDT [place] ([facility]) [id number] History and physical examination, admini strative History and Physical Examination, Administrative Problem 02/23/2020 12:00:00 AM EDT [facility]HA[facility] Bolanos ([facility]) 788.41 Increased frequency of urination Increased frequency o f urination 01/20/2020 10:51:59 AM EDT [facility] 13328838 Acute cystitis without hematuria Acute cystitis withou t hematuria 01/20/2020 10:51:59 AM EDT [facility] [id number] Increased frequency of urination Increased Frequ ency of Urination Problem 01/20/2020 12:00:00 AM EDT [facility] ([facility]) 07975082 Acute cystitis Acute Cystitis Problem 01/20/2020 12:00: 00 AM EDT [facility] ([facility]) F43.8 Other reactions to severe stress TRAUMA- AND STRESSOR-RELATED DISORDER, OTHER SPECIFIED 11/11/2019 01:45:28 PM EDT [facility] 309.4 ADJUSTMENT DISORDER, W/ MIXED ANXIETY AN D DEPRESSED MOOD ADJUSTMENT DISORDER, W/ MIXED ANXIETY AND DEPRESSED MOOD 11/11/2019 01: 45:28 PM EDT [facility] 327053476 Clinical finding Clinical Finding Problem 11/11/2019 12 :00:00 AM EDT [facility] ([facility]) 90171483 Adjustment disorder with mixed disturban ce of emotions AND conduct Adjustment Disorder with Mixed Disturbance of Emotions and Conduct Problem 11/11/2019 12:00:00 AM EDT [facility] ([facility]) 268.9 vitamin D deficiency vitamin D deficiency 09/15 04:38:36 PM [facility] 724.2 Acute low back pain Acute low back pain 020 04:38:36 PM [facility] 125848059 Low back pain Low Back Pain Problem 09/16/2019 12:00:00 AM EST [facility] ([facility]) 60451716 Vitamin D deficiency Vitamin D Deficiency Problem 09/16/2019 12:00:00 AM EST [facility] ([facility]) V70.0 Health Screening Health Screening 08/05/2019 02 :58:50 PM [facility] 554181811 Endocrine/metabolic screening Endocrine/metabolic scre ening 08/05/2019 02:58:50 PM [facility] 784.0 Headache Headache 08/05/2019 02:58:50 PM ES Chery [facility] 300.09 Anxiety depression Anxiety depression 0 02:58:50 PM [facility] [id number] Obesity, unspecified Obesity, unspecified 08/05/2019 02:58:50 PM [facility] [id number] Clinical finding Clinical Finding Problem 08/05/2019 12 :00:00 AM BRYANNA GALLEGOS ([facility]) 059239245 Emotional state finding Emotional State Finding Proble m 08/05/2019 12:00:00 AM EST [facility] ([facility]) 178286272 General finding of observation of patien t General Finding of Observation of Patient Problem 08/05/2019 12:00:00 AM BRYANNA GALLEGOS ([facility]) 420665906 Endocrine/metabolic screening Endocrine/metabolic Scre ening Problem 08/05/2019 12:00:00 AM BRYANNA GALLEGOS ([facility]) 12326444 Headache Headache Problem 08/05/2019 12:00:00 AM RODOLFO GALLEGOS ([facility]) Surgeries/Procedures Procedure Description Date Indications Data Source(s) REMOVE INTRAUTERINE DEVICE 07/22/2019 12:00:00 AM EST eCW1 ([facility]) Results ID Date Data Source [id number] 03/29/2020 02:39:41 PM EDT [facility] Measurements & CalculationsHeight: 69 inches (5 ft. 9 in.) 175.26 cm Weight: 221 pounds 100.45 kg Body Mass Index (BMI): 32.75BMI Interpretation: ObeseBody Surface Area (BSA): 2.16Weight Management Education Done (Nutrition/Physical Activity)Vital SignsTemperature: 98.1F 36.72C tympanic Pulse Rate: 98 beats/minuteRespiratory Rate: 16 respirations/minuteBlood Pressure: 101/73 right arm sitting automaticO2 Saturation: 99% room air sittingInitial Intake Information From: patientRoom #: 8Infectious Disease / Travel ScreeningRecent travel for you or any close contacts? NoHave you had any close contact with anyone diagnosed with or under investigation for COVID-19 (coronavirus)? NoFever? NoRespiratory symptoms: cough, cold, congestion, shortness of breath, difficulty breathing? NoLoss of smell? NoLoss of taste? NoSmoking, Tobacco, Vaping or Smoke Exposure StatusSmoke Status: never smokerTobacco Use: NoDo you vape? NoPassive Smoke Exposure: NoMenstrual HistoryLast Menstrual Period (LMP): 03/27/2020Any possibility of ? NoHealthcare HistorySince your last office visit...Have you been admitted to the hospital? NoHave you been to an emergency room (ER) or urgent care clinic? NoHave you seen another healthcare provider? Yes - [facility]Have you seen a dentist? Yes - [facility] LerayIntake performed by: Janice Brannon MA, March 29, 2020 2:43 PMRate Your HealthIn general, would you say your health is? GoodPain AssessmentAre you currently having any pa in which... You would like your provider to address? No Affects your activity level? NoDepression Screening - PHQ-2Over the last two weeks, have you... Had little interest or pleasure in doing things? Not at all Been feeling down, depressed, or hopeless? Not at all PHQ-2 Score: 0Anxiety Screening - DESHAWN-2Over the last two weeks, have you been... Feeling nervous, anxious, or on edge? Not at all Unable to stop or control worrying? Not at all DESHAWN-2 Score: 0Food InsecurityWithin the past year...Did you worry whether your food would run out before you got money to buy more? Never trueWas there a time when the food you bought didn't last and you didn't have money to get more? Never trueScreening, Brief Intervention, & Referral to Treatment (SBIRT)Pre-Screening Questions How many times have you have 4 or more drinks in a day? 0How many times have you used an illegal drug or used a prescription medication for a non- medical reason? 0Performed by: Janice Brannon MA, March 29, 2020 2:44 PMPatient History Medical History:No known medical historySurgical History:gallbladderleeptonsils removalFamily History:Heart disease (Mother, Maternal Grandmother)Diabetes (Mother)Epilepsy (Sister)Social/Personal History: Chief Complaintfollow-up visit medication managment History of Present Illness (HPI)30 YO female here for follow up for medication management for anxiety depression. Pt ststates medication working well. Pt states Therapy with Cindy also going well. Pt denies any new concerns today. HPI performed by: Karla MCMULLEN, March 29, 2020 3:02 PMTransitions of Care InboundProblem ReviewProblem List was reviewed and/or updated during this visit.Medication Reconciliation & ReviewMedication List was reviewed and/or updated during this visit, including review of any bwti-dcx-memivxf medications, herbal therapies, and/or supplements.Allergy ReviewAllergy List was reviewed and/or updated during this visit.Adult Preventive CareProvider Calculated and Reviewed all Clinical Protocols for patient today. Labs/Meds/Other Counseling-Nutrition and Physical Activity:BMI Interpretation: Obese (03/29/2020) Counseling: Done (03/29/2020) Physical Activity: Done (03/29/2020)Review of Systems General: Denies loss of appetite, chills, dizziness, fatigue, fever, continued fever, headache, feeling ill, sweats, night sweats, sleep disturbances, weight loss. Eyes: Denies blurri ng of vision, double vision, irritation, discharge, vision loss, eye pain, eye swelling, droopy eyelid, sensitivity to light, redness, itching. Ears/Nose/Throat: Denies earache, ear discharge, ringing in ears, decreased hearing, nasal congestion, nosebleeds, runny nose, sore throat, hoarseness, difficulty swallowing, dry mouth, tooth pain, bleeding gums, swollen glands. Cardiovascular: Denies chest pain, palpitations, feeling faint, trouble breathing w/exertion, SOB upon lying down, SOB at night, peripheral edema, elevated blood pressure, decreased heart rate. Respiratory: Denies cough, difficulty breathing, shortness of breath, excessive sputum, coughing up blood, wheezing, chest pain. Breast: Denies discoloration, tenderness, breast changes, breast lump, nipple discharge. Gastrointestinal: Denies nausea, vomiting, bleeding, burning, itching, irritation, cramps, diarrhea, bloody diarrhea. Genitourinary: Denies urinary incontinence, pain with urination, burning with urination, urinary frequency, urinary hesitancy, urinary urgency, urinary urgency at night, incomplete emptying, blood in urine. Musculoskeletal: Denies back pain, joint pain, leg pain, other pain-see comments, joint swelling, body aches, muscle aches, muscle cramps, muscle weakness, stiffness, recent injury. Skin: Denies rash, hives, redness, itching, dryness, nail changes, suspicious lesions, athlete's foot, rash on palms, rash on bottom of feet. Neurologic: Denies muscle impairment, weakness, numbness/tingling, seizures, slurred speech, feeling faint, tremors, vertigo, paralysis on one side, paralysis on both sides. Psychiatric: Complains of anxiety. Denies depression, memory loss, mental disturbance, suicidal ideation, homicidal ideation, hallucinations, paranoia, feeling stressed, hearing voices. Endocrine: Denies cold intolerance, heat intolerance, excessive thirst, excessive hunger, excessive urination, weight loss, weight gain. Physical ExamGeneral Appearance: well nourished, well hydrated, no acute distressEyes, External: conjunctivae and lids normal, EOMIRespiratory, Auscultation: clear to auscultation bilaterally; no rales, rhonchi, or wheezesRespiratory, Effort: no intercostal retractions or use of accessory musclesCardiovascular, Auscultation: S1, S2 audible; no murmur, rub, or gallop; RRRPeripheral Circulation: no clubbing, cyanosis, edema, or varicositiesAbdomen: soft, non-tender, no masses, bowel sounds normalGait & Station: normalSkin, Inspection: no rashes, lesions, or ulcerationsOrientation: oriented to time, place, and personMood & Affect: no depression, anxiety, or agitationJudgment & Insight: intactCare Management Plan Transitions of CareInboundRate Your HealthIn general, would you say your health is? GoodAssessment & Plan Problems:Assessed:Anxiety depression (ICD-300.09) (ICD10- F41.8) Assessment: improving per patient. Taking medications as prescribed. Mother of 4 children. 2 are school age. online learning due to pandemic. getting ready for PCS to [place]. Instructions: lease continue medications as prescribed. Please try to monitor, report an avoid triggers causing increased anxiety or depression.Anxiety depression (ICD-300.09) (ZYQ51-V46.8) Assessment: improving per patient. Taking medications as prescribed. Mother of 4 children. 2 are school age. online learning due to pandemic. getting ready for PCS to [place]. Instructions: Please continue medications as prescribed. Please try to monitor, report an avoid triggers causing increased anxiety or depression.Assessment not SavedEncounter for administrative examinations; unspecified (IDK43-F05.9): Patient Instructions/Care Plan: Anxiety depression: lease continue medications as prescribed. Please try to monitor, report an avoid triggers causing increased anxiety or depression.Anxiety depression: Please continue medications as prescribed. Please try to monitor, report an avoid triggers causing increased anxiety or depression. Plan developed in collaboration with patient and/or familyMedications:HYDROXYZINE HCL 50 MG ORAL TABLETPROZAC 20 MG ORAL CAPSULEVITAMIN D3 14532 UNIT ORAL TABLETNAPROXEN 500 MG ORAL TABLETAllergies:No Known Allergies (updated 02/23/2020) Orders:Adult - Ofc Vst, EST, Level III [[id number]] Follow-Up Return to clinic: 3 months for follow up. Clinical Visit Summary Completed Name Value Range Interpretation Code Description Data Rubi rce(s) Supporting Document(s) ID Date Data Source [id number] 02/23/2020 02:27:21 PM EDT [facility] Measurements & CalculationsHeight: 69 inches (5 ft. 9 in.) 175.26 cm Weight: 214 pounds 2 oz. 97.33 kg Body Mass Index (BMI): 31.74BMI Interpretation: ObeseBody Surface Area (BSA): 2.13Weight Management Education Done (Nutrition/Physical Activity)Vital SignsTemperature: 99.4FPulse Rate: 82 beats/minuteRespiratory Rate: 14 respirati ons/minuteBlood Pressure: 98/64 O2 Saturation: 98% Vital Signs performed by: Genevieve Hunter LPN, February 23, 2020 2:29 PMVital Signs performed by: Genevieve Hunter LPN, February 23, 2020 2:29 PMInitial Intake Information From: patientRoom #: 9Infectious Disease / Travel ScreeningRecent travel for you or any close contacts? NoHave you had any close contact with anyone diagnosed with or under investigation for COVID-19 (coronavirus)? NoFever? NoRespiratory symptoms: cough, cold, congestion, shortness of breath, difficulty breathing? NoLoss of smell? NoLoss of taste? NoSmoking, Tobacco, Vaping or Smoke Exposure StatusSmoke Status: never smokerTobacco Use: NoDo you vape? NoPassive Smoke Exposure: NoMenstrual HistoryLast Menstrual Period (LMP): 01/26/2020LMP History: ApproximateAny possibility of ? NoHealthcare HistorySince your last office visit...Have you been admitted to the hospital? NoHave you been to an emergency room (ER) or urgent care clinic? NoHave you seen another healthcare provider? Yes - [facility]Have you seen a [facility]? Yes - [facility] LerayIntake performed by: Genevieve Hunter LPN, February 23, 2020 2:35 PMRate Your HealthIn general, would you say your health is? FairPain AssessmentAre you currently having any pain which... You would like your provider to address? No Affects your activity level? NoDepression Screening - PHQ-2Over the last two weeks, have you... Had little interest or pleasure in doing things? Several days Been feeling down, depressed, or hopeless? Several days PHQ-2 Score: 2Anxiety Screening - DESHAWN-2Over the last two weeks, have you been... Feeling nervous, anxious, or on edge? Nearly every day Unable to stop or control worrying? Nearly every day DESHAWN-2 Score: 6Food InsecurityWithin the past year...Did you worry whether your food would run out before you got money to buy more? NoWas there a time when the food you bought didn't last and you didn't have money to get more? NoGeneralized Anxiety Disorder 7-Item Screening (DESHAWN-7)Answer Guide:0 = Not at all1 = Several days2 = Over half the days3 = Nearly every dayOver the last 2 weeks, how often have you been bothered by the following problems?Feeling nervous, anxious, or on edge: 3Not being able to stop or control worryinWorrying too much about different things: 3Trouble relaxinBeing so restless that it's hard to sit still: 1Becoming easily annoyed or irritable: 3Feeling afraid as if something awful might happen: 3Answer Guide:0 = Not difficult at all1 = Somewhat difficult2 = Very difficult3 = Extremely difficultHow difficult have these made it for you to do your work, t bob care of things at home, or get along with other people? 2GAD-7 Screening Results DESHAWN-2 Score: 6GAD-7 Score: 19Functional Impairment: Very difficultRecommendation: Severe anxietyPHQ-9 1. Over the last 2 weeks, patient reports the following frequency of symptoms: a. Little interest or pleasure in doing things -Several days b. Feeling down, depressed, or hopeless -Several days c. Trouble falling asleep, staying asleep, or sleeping too much -Nearly every day d. Feeling tired or having little energy -Nearly every day e. Poor appetite or overeating -More than half the days f. Feeling bad about yourself, feeling that you are a failure, or feeling that you have let yourself or your family down -More than half the days g. Trouble concentrating on things such as reading the newspaper or watching television -More than half the days h. Moving or speaking so slowly that other people could have noticed. Or being so fidgety or restless that you have been moving around a lot more than usual - More than half the days i. Thinking that you would be better off or t hat you want to hurt yourself in some way -Not at all2. If you checked off any problems, how difficult have these problems made it for you to do your work, take care of things at home, or get along with other people? -Somewhat DifficultToday's PHQ-9 Results Score: 16 Severity: Moderately Severe Diagnosis Recommendation: No recommendation Functional Impairment: Somewhat DifficultToday's Follow-Up Action Depression follow-up done.Screening, Brief Intervention, & Referral to Treatment (SBIRT)Pre-Screening Questions How many times have you have 4 or more drinks in a day? 0How many times have you used an illegal drug or used a prescription medication for a non-medical reason? 0Performed by: Genevieve Hunter LPN, February 23, 2020 2:41 PMPatient History Medical History:No known medical historySurgical History:gallbladderleeptonsils removalFamily History:Heart disease (Mother, Maternal Grandmother)Diabetes (Mother)Epilepsy (Sister)Social/Personal History: Chief Complaint anxiety/ depression room follow-up visit room 9History of Present Illness (HPI)29Y female here for follow up on anx/depression Pt states healthy diet and physical activitiesPt states taking medications as prescribed with no side effects. Pt states feels like prozac is helping a little, but some days still increased anxiety and depression. HPI performed by: Karla MCMULLEN, February 23, 2020 3:13 PMTransitions of Care InboundProblem ReviewProblem List was reviewed and/or updated during this visit.Medication Reconciliation & ReviewMedication List was reviewed and/or updated during this visit, including review of any vnmd-yvq-kbuolqf medications, herbal therapies, and/or supplements.Allergy ReviewAllergy List was reviewed and/or updated during this visit. Patient has no known allergies.Adult Preventive CareProvider Calculated and Reviewed all Clinical Protocols for patient today. Labs/Meds/Other Counseling-Nutrition and Physical Activity:BMI Interpretation: Obese (02/23/2020) Counseling: Done (02/23/2020) Physical Activity: Done (02/23/2020)Cancer Screening Pap Smear/HPV TestingReviewed: Patient Refused Pap SmearPrevious Comments: will have records sent (01/26/2020)Today's Comments: had done after year old son was bornReview of Systems General: Denies loss of appetite, chills, dizziness, fatigue, fever, continued fever, headache, feeling ill, sweats, night sweats, sleep disturbances, weight loss. Eyes: Denies blurring of vision, double vision, irritation, discharge, vision loss, eye pain, eye swelling, droopy eyelid, sensitivity to light, redness, itching. Ears/Nose/Throat: Denies earache, ear discharge, ringing in ears, decreased hearing, nasal congestion, nosebleeds, runny nose, sore throat, hoarseness, difficulty swallowing, dry mouth, tooth pain, bleeding gums, swollen glands. Cardiovascular: Denies chest pain, palpitations, feeling faint, trouble breathing w/exertion, SOB upon lying down, SOB at night, peripheral edema, elevated blood pressure, decreased heart rate. Respiratory: Denies cough, difficulty breathing, shortness of breath, excessive sputum, coughing up blood, wheezing, chest pain. Breast: Denies d iscoloration, tenderness, breast changes, breast lump, nipple discharge. Gastrointestinal: Denies nausea, vomiting, bleeding, burning, itching, irritation, cramps, diarrhea. Genitourinary: Denies urinary incontinence, pain with urination, burning with urination, urinary frequency, urinary hesitancy, urinary urgency, urinary urgency at night, incomplete emptying, blood in urine. Musculoskeletal: Denies back pain, joint pain, leg pain, other pain-see comments, joint swelling, body aches, muscle aches, muscle cramps, muscle weakness, stiffness, recent injury. Skin: Denies rash, hives, redness, itching, dryness, nail changes, suspicious lesions, athlete's foot, rash on palms, rash on bottom of feet. Neurologic: Denies muscle impairment, weakness, numbness/tingling, seizures, slurred speech, feeling faint, tremors, vertigo, paralysis on one side, paralysis on both sides. Psychiatric: Complains of depression, anxiety. Denies memory loss, mental disturbance, suicidal ideation, homicidal ideation, hallucinations, paranoia, feeling stressed, hearing voices. Endocrine: Denies cold intolerance, heat intolerance, excessive thirst, excessive hunger, excessive urination, weight loss, weight gain. Physical ExamGeneral Appearance: well nourished, well hydrated, no acute distressEyes, External: conjunctivae and lids normal, EOMIRespiratory, Auscultation: clear to auscultation bilaterally; no rales, rhonchi, or wheezesRespiratory, Effort: no intercostal retractions or use of accessory musclesCardiovascular, Auscultation: S1, S2 audible; no murmur, rub, or gallop; RRRPeripheral Circulation: no clubb ing, cyanosis, edema, or varicositiesAbdomen: soft, non-tender, no masses, bowel sounds normalGait & Station: normalSkin, Inspection: no rashes, lesions, or ulcerationsOrientation: oriented to time, place, and personMood & Affect: no depression, anxiety, or agitationJudgment & Insight: intactCare Management Plan Transitions of CareInboundRate Your HealthIn general, would you say your health is? FairAssessment & Plan Problems:Added: Insomnia, unspecified (GCU20-R32.00) Assessment: Instructions: Please try to avoid nighttime stimulants. Please try limit caffeine intake. may take Hydroxyzine at bedtime as needed for insomnia.Encounter for administrative examinations, unspecified (CKJ38-A44.9) Assessment: Instructions: We will contact you when form is completed.Encounter for general adult medical examination with abnormal findings (ICD-V70.0) (JBA47-H44.01) Assessment: Instructions: You have had your annual physical exam done today. Please continue mediocationas as prescribed. Please continue healthy diet and physical activities.Assessed:Anxiety depression (ICD-300.09) (LUR86-E34.8) Assessment: Instructions: We have increased the dose of your Prozac to 20 mg daily. Please take as prescribed, please report any major side effects. We have sent a prescription for Hydroxyzine as needed. Please take as prescribed. Please try to monitor report and avoid triggers cau sing increased anxiety and deprtession.Obesity, unspecified (BLF75-G73.9) Assessment: Instructions: Please continue lifestyle changes to include healthy diet and physical activities. Please try to limit sugars and carbohydrates in your diet. Please try to avoid processed foods.Patient Instructions/Care Plan: Insomnia- unspecified: Please try to avoid nighttime stimulants. Please try limit caffeine intake. may take Hydroxyzine at bedtime as needed for insomnia.Anxiety depression: We have increased the dose of your Prozac to 20 mg daily. Please take as prescribed, please report any major side e ffects. We have sent a prescription for Hydroxyzine as needed. Please take as prescribed. Please try to monitor report and avoid triggers causing increased anxiety and deprtession.Encounter for administrative examinations- unspecified: We will contact you when form is completed.Encounter for general adult medical examination with abnormal findings: You have had your annual physical exam done today. Please continue mediocationas as prescribed. Please continue healthy diet and physical activities.Obesity- unspecified: Please continue lifestyle changes to include healthy diet and physical activities. Please try to limit sugars and carbohydrates in your diet. Please try to avoid processed foods. Plan developed in collaboration with patient and/or familyMedications:HYDROXYZINE HCL 50 MG ORAL TABLETPROZAC 20 MG ORAL CAPSULEVITAMIN D3 13004 UNIT ORAL TABLETNAPROXEN 500 MG ORAL TABLETMedication Changes:Refilled:PROZAC 20 MG ORAL CAPSULE-take one tablet by mouth daily Qty: 30[Capsule] Refills: 2 Method: ElectronicNew Prescription:HYDROXYZINE HCL 50 MG ORAL TABLET-take one tablet by mouth twice daily as needed, may take one tablet at bedtime to help with sleep Qty: 90[Tablet] Refills: 2 Method: ElectronicChanged:From: ORAL PROZAC 10 MG ORAL CAPSULE Qty: [id number] Refills: 30[Capsule] To: PROZAC 20 MG ORAL CAPSULE-take one tablet by mouth daily Qty: 30[Capsule] Refills: 2Allergies:No Known Allergies (updated 02/23/2020) Orders:Adult - Ofc Vst, EST, Level IV [CPT- 35775] Follow-Up Return to clinic: 4-6 weeks for follow up on anxiety Clinical Visit Summary CompletedMedications:PROZAC 20 MG ORAL CAPSULE (FLUOXETINE HCL) take one tablet by mouth daily #30[Capsule] x 2 Route:ORAL Entered and Authorized by: Karla MCMULLEN Method used: Electronically to [facility] (retail) [id number] [place] [address] Note to Pharmacy: Route: ORAL; Indications: ANXIETY DEPRESSION RxID: [id number] HCL 50 MG ORAL TABLET (HYDROXYZINE HCL) take one tablet by mouth twice daily as needed, may take one tablet at bedtime to help with sleep #90[Tablet] x 2 Route:ORAL Entered and Authorized by: Karla MCMULLEN Method used: Electronically to [facility] (retail) [id number] [place] [address] Note to Pharmacy: Route: ORAL; Indications: ANXIETY DEPRESSION;INSOMNIA, UNSPECIFIED RxID: [id number] signed by Karla MCMULLEN on 02/26/2020 at 12:23 AM Name Value Range Interpretation Code Description Data Rubi rce(s) Supporting Document(s) ID Date Data Source [id number] 01/26/2020 04:50:07 PM EDT [facility] Measurements & CalculationsHeight: 69 inches 175.26 cm Weight: 213.6 pounds 97.09 kg Body Mass Index (BMI): 31.66BMI Interpretation: ObeseBody Surface Area (BSA): 2.13Vital SignsTemperature: 97.7F 36.50C tympanic Pulse Rate: 66 beats/minuteRespiratory Rate: 20 respirations/minuteBlood Pressure: 115/72 right arm sitting automaticO2 Saturation: 100% room airVital Signs performed by: Makayla Dotson , January 26, 2020 4:55 PMInitial Intake Information From: patientRoom #: 9Infectious Disease / Travel ScreeningRecent travel for you or any close contacts? NoHave you had any close contact with anyone diagnosed with or under investigation for COVID-19 (coronavirus)? NoFever? NoRespiratory symptoms: cough, cold, congestion, shortness of breath, difficulty breathing? NoLoss of smell? NoLoss of taste? NoSmoking, Tobacco, Vaping or Smoke Exposure StatusSmoke Status: never smokerTobacco Use: NoDo you vape? NoPassive Smoke Exposure: NoMenstrual HistoryLast Menstrual Period (LMP): 01/24/2020LMP History: ApproximateAny possibility of ? NoHealthcare HistorySince your last office visit...Have you been admitted to the hospital? NoHave you been to an emergency room (ER) or urgent care clinic? NoHave you seen another healthcare provider? NoHave you [facility] a [facility]? [facility]Int[facility] performed by: Makayla Dotson , January 26, 2020 4:53 PMRate Your HealthIn general, would you say your health is? GoodPain AssessmentAre you currently having any pain which... You would like your provider to address? No Affects your activity level? NoDepression Screening - PHQ-2Over the last two weeks, have you... Had little interest or pleasure in doing things? More than half the days Been feeling down, depressed, or hopeless? Several days PHQ-2 Score: 3Anxiety Screening - DESHAWN-2Over the last two weeks, have you been... Feeling nervous, anxious, or on edge? Not at all Unable to stop or control worrying? Not at all DESHAWN-2 Score: 5Food InsecurityWithin the past year...Did you worry whether your food would run out before you got money to buy more? NoWas there a time when the food you bought didn't last and you didn't have money to get more? NoPHQ-9 1. Over the last 2 weeks, patient reports the following frequency of symptoms: a. Little interest or pleasure in doing things -More than half the days b. Feeling down, depressed, or hopeless -Several days c. Trouble falling asleep, staying asleep, or sleeping too much -Nearly every day d. Feeling tired or having little energy -Nearly every day e. Poor appetite or overeating -Several days f. Feeling bad about yourself, feeling that you are a failure, or feeling that you have let yourself or your family down -Nearly every day g. Trouble concentrating on things such as reading the newspaper or watching television -More than half the days h. Moving or speaking so slowly that other people could have noticed. Or being so fidgety or restless that you have been moving around a lot more than usual -More than half the days i. Thinking that you would be better off or that you want to hurt yourself in some way -Not at all2. If you checked off any problems, how difficult have these problems made it for you to do your work, take care of things at home, or get along with other people? -Somewhat DifficultToday's PHQ-9 Results Score: 17 Severity: Moderately Severe Diagnosis Recommendation: Major Depression Functional Impairment: Somewhat DifficultToday's Follow-Up Action Depression follow-up done. Follow-Up Action: Prescribed Antidepressant MedicationGeneralized Anxiety Disorder 7-Item Screening (DESHAWN-7)Answer Guide:0 = Not at all1 = Several days2 = Over half the days3 = Nearly every dayOver the last 2 weeks, how often have you been bothered by the following problems?Feeling nervous, anxious, or on edge: 3Not being able to stop or control worryinWorrying too much about different things: 3Trouble relaxinBeing so restless that it's hard to sit still: 2Becoming easily annoyed or irritable: 2Feeling afraid as if something awful might happen: 2Answer Guide:0 = Not difficult at all1 = Somewhat difficult2 = Very difficult3 = Extremely difficultHow difficult have these made it for you to do your work, take care of things at home, or get along with other people? 2GAD-7 Screening Results DESHAWN-2 Score: 5GAD-7 Score: 17Functional Impairment: Very difficultRecommendation: Severe anxietyScreening, Brief Intervention, & Referral to Treatment (SBIRT)Pre-Screening Questions How many times have you have 4 or more drinks in a day? 0How many times have you used an illegal drug or used a prescription medication for a non-medical reason? 0Performed by: Makayla Dotson , January 26, 2020 4:54 PMPatient History Medical History:No known medical historySurgical History:gallbladderleeptonsils removalFamily History:Heart disease (Mother, Maternal Grandmother)Diabetes (Mother)Epilepsy (Sister)Social/Personal History: Chief Complaintanxiety/depressionHistory of Present Illness (HPI)29 yo female here for follow up on Anxiety and Depression. Pt states anxiety depression getting alittle better. Pt states that therapy is going well. Pt sees Cindy in house for therapy. Pt states feels may benefit for medication for her anxiety. Pt would also like a referral for Telepsych. HPI performed by: Karla MCMULLEN, January 26, 2020 5:17 PMTransitions of Care InboundProblem ReviewProblem List was reviewed and/or updated during this visit.Medication Reconciliation & ReviewMedication List was reviewed and/or updated during this visit, including review of any icgt-tqt-uconmme medications, herbal therapies, and/or supplements.Allergy ReviewAllergy List was reviewed and/or updated during this visit.Provider Calculated and Reviewed all Clinical Protocols for patient today. Cancer Screening Pap Smear/HPV TestingReviewed: Previous Comments: done july of 2019 (09/16/2019)Today's Comments: will have records sentReview of Systems General: Denies loss of appetite, chills, dizziness, fatigue, fever, continued fever, headache, feeling ill, sweats, night sweats, sleep disturbances, weight loss. Eyes: Denies blurring of vision, double vision, irritation, discharge, vision loss, eye pain, eye swelling, droopy eyelid, sensitivity to light, redness, itching. Ears/Nose/Throat: Denies earache, ear discharge, ringing in ears, decreased hearing, nasal congestion, nosebleeds, runny nose, sore throat, hoarseness, difficulty swallowing, dry mouth, tooth pain, bleeding gums, swollen glands. Cardiovascular: Denies chest pain, palpitations, feeling faint, trouble breathing w/exertion, SOB upon lying down, SOB at night, peripheral edema, elevated blood pressure, decreased heart rate. Respiratory: Denies cough, difficulty breathing, shortness of breath, excessive sputum, coughing up blood, wheezing, chest pain. Breast: Denies discoloration, tenderness, breast changes, breast lump, nipple discharge. Gastrointestinal: Denies nausea, vomiting, bleeding, burning, itching, irritation, cramps, diarrhea, constipation. Genitourinary: Denies urinary incontinence, pain with urination, burning with urination, urinary frequency, urinary hesitancy, urinary urgency, urinary urgency at night, incomplete emptying, blood in urine, pelvic pain. Musculoskeletal: Denies back pain, joint pain, leg pain, other pain-see comments, joint swelling, body aches, muscle aches, muscle cramps, muscle weakness, stiffness, recent injury. Skin: Denies rash, hives, redness, itching, dryness, nail changes, suspicious lesions, athlete's foot, rash on palms, rash on bottom of feet. Neurologic: Denies muscle impairment, weakness, numbness/tingling, seizures, slurred speech, feeling faint, tremors, vertigo, paralysis on one side, paralysis on both sides. Psychiatric: Complains of anxiety. Denies depression, memory loss, mental disturbance, suicidal ideation, homicidal ideation, hallucinations, paranoia, feeling stressed, hearing voices. Endocrine: Denies cold intolerance, heat intolerance, excessive thirst, excessive hunger, excessive urination, weight loss, weight gain. Physical ExamGeneral Appearance: well nourished, well hydrated, no acute distressEyes, External: conjunctivae and lids normal, EOMIRespiratory, Auscultation: clear to auscultation bilaterally; no rales, rhonchi, or wheezesRespiratory, Effort: no intercostal retractions or use of accessory musclesCardiovascular, Auscultation: S1, S2 audible; no murmur, rub, or gallop; RRRPeripheral Circulation: no clubbing, cyanosis, edema, or varicositiesAbdomen: soft, non-tender, no masses, bowel sounds normalGait & Station: normalSkin, Inspection: no rashes, lesions, or ulcerationsOrientation: oriented to time, place, and personMood & Affect: no depression, anxiety, or agitationJudgment & Insight: intactCare Management Plan Transitions of CareInboundRate Your HealthIn general, would you say your health is? GoodAssessment & Plan Problems:Assessed:Anxiety depression (ICD-300.09) (LMK13-M74.8) Assessment: Pt states that therapy is going well. pt sees cindy in house for therapy. Pt states feels may benefit from sometrhing for her anxiety. Instructions: We have sent a prescription to your pharmacy today. Please take medication as prescribed. Please report any major side effects. Please continue to monitor report and avoid triggers causing increased anxiety and or depression. Please continue to follow with your therapist as scheduled. We have made a referral to telepsych. We will contact you to set this up.Assessment not Saved Anxiety depression (GPV85-R50.8): Patient Instructions/Care Plan: Anxiety depression: We have sent a prescription to your pharmacy today. Please take medication as prescribed. Please report any major side effects. Please continue to monitor report and avoid triggers causing increased anxiety and or depression. Please continue to follow with your therapist as scheduled. We have made a referral to telepsych. We will contact debora miguel to set this up. Plan developed in collaboration with patient and/or familyMedications:PROZAC 10 MG ORAL CAPSULEVITAMIN D3 61351 UNIT ORAL TABLETNAPROXEN 500 MG ORAL TABLETMedication Changes:New Prescription:PROZAC 10 MG ORAL CAPSULE-take one tablet by mouth daily Qty: 30[Capsule] Refills: 1 Method: ElectronicRemoved:MACROBID 100 MG ORAL CAPSULE-Take 1 capsule po BID Qty: 14[Capsule] Refills: 0Allergies:No Known Allergies (updated 01/20/2020) Orders:Telepsychiatry Consult [CPT-30360] Adult - Ofc Vst, EST, Level III [CPT- 85514] Follow-Up Return to clinic: 4-6 weeks for follow up. Clinical Visit Summary CompletedMedications:PROZAC 10 MG ORAL CAPSULE (FLUOXETINE HCL) take one tablet by mouth daily #30[Capsule] x 1 Route:ORAL Entered and Authorized by: Karla MCMULLEN Method used: Electronically to [facility]* ([facility]) [id number] [place] [address] Note to Pharmacy: Route: ORAL; Indications: ANXIETY DEPRESSION RxID: [id number] MACROBID 100 MG ORAL CAPSULE (NITROFURANTOIN MONOHYD MACRO) Take 1 capsule po BID #14[Capsule] x 0 Route:ORAL Entered by: Makayla Dotson Authorized by: Thony LOCKE Method used: Electronically to [facility]* (retail) [id number] [place] [address] RxID: [id number] signed by Karla MCMULLEN on 01/29/2020 at 8:24 AM Name Value Range Interpretation Code Description Data Rubi rce(s) Supporting Document(s) ID Date Data Source [id number] 01/20/2020 10:30:00 AM EDT [facility] Name Value Range Interpretation Code Description Data Rubi rce(s) Supporting Document(s) URINECULTRTN EXTD BRD SPCTRM BETA LACTAMASE IV NE GATIVE FOR ESBL [facility] ID Date Data Source [id number] 01/20/2020 10:14:36 AM EDT [facility] Measurements & CalculationsHeight: 69 inches (5 ft. 9 in.) 175.26 cm Weight: 213 pounds 6 oz. 96.99 kg Body Mass Index (BMI): 31.62BMI Interpretation: ObeseBody Surface Area (BSA): 2.13Weight Management Education Done (Nutrition/Physical Activity)Vital SignsTemperature: 97.9F 36.61C tympanic Pulse Rate: 73 beats/minuteRespiratory Rate: 18 respirations/minuteBlood Pressure: 94/66 O2 Saturation: 97% Vital Signs performed by: Aretha Chairez LPN, January 20, 2020 10:22 AMLabs In-House Urine TestsDate/Time Collected: January 20, 2020 10:15 AMDate/Time Received: January 20, 2020 10:15 AMTest Result Reference Range Normal ValueRoutine Urinalysis Color: straw Yellow Appearance: cloudy Clear Leukocytes: 1+ Negative Nitrite: positive Negative Urobilinogen: 3.5 Negative Protein: negative Negative pH: 5.5 5.0-6.5 Blood: negative Negative Specific [place]: 1.030 1.020>=1.030 Ketone: negative Negative Bilirubin: negative Negative Glucose: negative NegativeCoelliot Chairez LPN, January 20, 2020 10:15 AMInitial Intake Information From: patientRoom #: 1Infectious Disease / Travel ScreeningRecent travel for you or any close contacts? NoHave you had any close contact with anyone diagnosed with or under investigation for COVID-19 (coronavirus)? NoFever? NoRespiratory symp toms: cough, cold, congestion, shortness of breath, difficulty breathing? NoLoss of smell? NoLoss of taste? NoDetails: got back from [place] 3 weeks agoSmoking, Tobacco, Vaping or Smoke Exposure StatusSmoke Status: never smokerTobacco Use: NoDo you vape? NoPassive Smoke Exposure: NoMenstrual HistoryLast Menstrual Period (LMP): 12/30/2019Any possibility of ? NoHealthcare HistorySince your last office visit...Have you been admitted to the hospital? NoHave you been to an emergency room (ER) or urgent care clinic? NoHave you seen another healthcare provider? NoHave you seen a dentist? NoIntake performed by: Aretha Chairez LPN, January 20, 2020 10:26 AMRate Your HealthIn general, would you say your health is? GoodPain AssessmentAre you currently having any pain which... You would like your provider to address? No Affects your activity level? NoDepression Screening - PHQ-2Over the last two weeks, have you... Had little interest or pleasure in doing things? Not at all Been feeling down, depressed, or hopeless? Not at all PHQ-2 Score: 0Anxiety Screening - DESHAWN- 2Over the last two weeks, have you been... Feeling nervous, anxious, or on edge? Several days Unable to stop or control worrying? Several days DESHAWN-2 Score: 2Food InsecurityWithin the past year...Did you worry whether your food would run out before you got money to buy more? NoWas there a time when the food you bought didn't last and you didn't have money to get more? NoGeneralized Anxiety Disorder 7-Item Screening (DESHAWN-7)Answer Guide:0 = Not at all1 = Several days2 = Over half the days3 = Nearly every dayOver the last 2 weeks, how often have you been bothered by the following problems?Feeling nervous, anxious, or on edge: 1Not being able to stop or control worryinWorrying too much about different things: 1Trouble relaxinBeing so restless that it's hard to sit still: 1Becoming easily annoyed or irritable: 1Feeling afraid as if something awful might happen: 1Answer Guide:0 = Not difficult at all1 = Somewhat difficult2 = Very difficult3 = Extremely difficultHow difficult have these made it for you to do your work, take care of things at home, or get along with other people? 1GAD-7 Screening Results DESHAWN-2 Score: 2GAD-7 Score: 7Functional Impairment: Somewhat difficultRecommendation: Mild anxietyScreening, Brief Intervention, & Referral to Treatment (SBIRT)Pre-Screening Questions How many times have you have 4 or more drinks in a day? 0How many times have you used an illegal drug or used a prescription medication for a non-medical reason? 0Performed by: Aretha Chairez LPN, January 20, 2020 10:27 AMPatient History Medical History:Surgical History:gallbladderleeptonsils removalFamily History:Heart disease (Mother, Maternal Grandmother)Diabetes (Mother)Epilepsy (Sister)Social/Personal History: Chief Complaintpossible utiHistory of Present Illness (HPI)29 yo female pt presents today for a possible UTI. Pt states it has been present for about a week and has gotten worse over the weekend. States she is having frequent urination, some pain with urination. Feels suprapubic pressure after emptying bladder. Also states she has a dull pain in lower back. Pt has been taking azo with minimal relief x 3 days. HPI performed by: Thony LOCKE, January 20, 2020 10:45 AMProblem ReviewProblem List was reviewed and/or updated during this visit.Medication Reconciliation & ReviewMedication List was reviewed and/or updated during this visit, including review of any wiue-vor-iueictt medications, herbal therapies, and/or supplements.Allergy ReviewAllergy List was reviewed and/or updated during this visit. Patient has no known allergies.Adult Preventive CareLabs/Meds/Other Counseling-Nutrition and Physical Activity:BMI Interpretation: Obese (01/20/2020) Counseling: Done (01/20/2020) Physical Activity: Done (01/20/2020)Review of Systems General: Denies loss of appetite, chills, dizziness, fatigue, fever. Cardiovascular: Denies chest pain, palpitations, feeling faint. Respiratory: Denies cough, dif ficulty breathing, shortness of breath. Gastrointestinal: Denies nausea, vomiting, diarrhea, constipation, pain or discomfort. Genitourinary: Complains of pain with urination, burning with urination, urinary frequency, urinary urgency, incomplete emptying. Denies urinary incontinence, blood in urine, absence of menstrual period, pelvic pain. Musculoskeletal: Complains of see HPI, back pain. Skin: Denies rash, redness. Physical ExamGeneral Appearance: well nourished, well hydrated, no acute distressEyes, External: conjunctivae and lids normal, EOMIRespiratory, Auscultation: clear to auscultation bilaterally; no rales, rhonchi, or wheezesCardiovascular, Auscultation: S1, S2 audible; no murmur, rub, or gallop; RRRPeripheral Circulation: no clubbing, cyanosis, edema, or varicositiesAbdomen: soft, non-tender, no masses, bowel sounds normalGait & Station: normalBack: no CVA tendernessOrientation: oriented to time, place, and personJudgment & Insight: intactRate Your HealthIn general, would you say your health is? GoodAssessment & Plan Problems:Added: Acute cystitis without hematuria (IAL83-N68.00) Assessment: Instructions: Urine was sent for culture today, we will call you if antibiotic needs to be started or changed based on culture. Stay well hydrated, empty bladder fully and frequently. Follow-up sooner for worsening symptoms, or ER for severe pain, back pain, fever, vomiting. Take antibiotics as prescribed, finish full course even if symptoms resolve. Antibiotics may cause stomach upset, recommend eating yogurt or taking probiotic while on antibiotics.Increased frequency of urination (ICD- 788.41) (IYN87-C65.0) Assessment: Instructions: As above.Assessed:Acute low back pain (ICD-724.2) (EPD57-D54.5) Assessment: Instructions: Not likely to be kidney infection as the pain is quite low. If pain is higher in the kidneys and accompanied by fever, then report to the ER.Patient Instructions/Care Plan: Acute cystitis without hematuria: Urine was sent for cul ture today, we will call you if antibiotic needs to be started or changed based on culture. Stay well hydrated, empty bladder fully and frequently. Follow-up sooner for worsening symptoms, or ER for severe pain, back pain, fever, vomiting. Take antibiotics as prescribed, finish full course even if symptoms resolve. Antibiotics may cause stomach upset, recommend eating yogurt or taking probiotic while on antibiotics.Acute low back pain: Not likely to be kidney infection as the pain is quite low. If pain is higher in the kidneys and accompanied by fever, then report to the ER.Increased frequency of urination: As above. Plan developed in collaboration with patient and/or familyMedications:MACROBID 100 MG ORAL CAPSULEVITAMIN D3 39036 UNIT ORAL TABLETNAPROXEN 500 MG ORAL TABLETMedication Changes:New Prescription:MACROBID 100 MG ORAL CAPSULE-Take 1 capsule po BID Qty: 14[Capsule] Refills: 0 Method: ElectronicAllergies:No Known Allergies (updated 01/20/2020) Orders:Urinalysis-automated [CPT-52541] Urine Culture & Sensitivity [CPT-17647] Adult - Ofc Vst, EST, Level III [CPT-68630] Follow-Up Return to clinic: as needed Clinical Visit Summary CompletedMedications:MACROBID 100 MG ORAL CAPSULE (NITROFURANTOIN MONOHYD MACRO) Take 1 capsule po BID #14[Capsule] x 0 Route:ORAL Entered and Authorized by: Thony LOCKE Method used: Electronically to [facility]* (xsduqy) [address] [place] [address] Fax: Note to Pharmacy: Route: ORAL; Indications: ACUTE CYSTITIS WITHOUT HEMATURIA RxID: [id number] signed by Thony LOCKE on 01/26/2020 at 3:13 PM Name Value Range Interpretation Code Description Data Rubi rce(s) Supporting Document(s) ID Date Data Source [id number] 01/20/2020 10:14:36 AM EDT [facility] Name Value Range Interpretation Code Description Data Rubi rce(s) Supporting Document(s) APPEARANCE U cloudy [facility] BILIRUBIN UR negative [facility] BLOOD UR DIP negative [facility] GLUCOSE, URN negative [facility] KETONES URN negative [facility] NITRITE URN positive [facility] PH URINE 5.5 [facility] PROTEIN, URN negative [facility] SPEC GR URIN 1.030 [facility] UA COLOR straw [facility] UROBILINOGEN 3.5 [facility] WBC DIPSTK U 1+ [facility] ID Date Data Source [id number] 01/20/2020 10:14:36 AM EDT [facility] Name Value Range Interpretation Code Description Data Rubi rce(s) Supporting Document(s) APPEARANCE U cloudy [facility] BILIRUBIN UR negative [facility] BLOOD UR DIP negative [facility] GLUCOSE, URN negative [facility] KETONES URN negative [facility] NITRITE URN positive [facility] PH URINE 5.5 [facility] PROTEIN, URN negative [facility] SPEC GR URIN 1.030 [facility] UA COLOR straw [facility] UROBILINOGEN 3.5 [facility] WBC DIPSTK U 1+ [facility] ID Date Data Source [id number] 01/20/2020 10:14:36 AM EDT [facility] Name Value Range Interpretation Code Description Data Rubi rce(s) Supporting Document(s) APPEARANCE U cloudy [facility] BILIRUBIN UR negative [facility] BLOOD UR DIP negative [facility] GLUCOSE, URN negative [facility] KETONES URN negative [facility] NITRITE URN positive [facility] PH URINE 5.5 [facility] PROTEIN, URN negative [facility] [employer] SPEC GR URIN 1.030 [facility] UA COLOR straw [facility] UROBILINOGEN 3.5 [facility] WBC DIPSTK U 1+ [facility] ID Date Data Source [id number] 09/16/2019 03:37:08 PM EST [facility] Measurements & CalculationsHeight: 69 inches (5 ft. 9 in.) 175.26 cm Weight: 210 pounds 4 oz. 95.57 kg Body Mass Index (BMI): 31.16BMI Interpretation: ObeseBody Surface Area (BSA): 2.11Weight Management Education Done (Nutrition/Physical Activity)Vital SignsTemperature: 98.4FPulse Rate: 72 beats/minuteRespiratory Rate: 16 respirations/minuteBlood Pressure: 112/78 O2 Saturation: 97% Vital Signs performed by: Genevieve Hunter LPN, September 16, 2019 3:39 PMVital Signs performed by: Genevieve Hunter LPN, September 16, 2019 3:39 PMInitial Intake Information from: patientRoom #: 12Smoking, Tobacco, Vaping or Smoke Exposure StatusSmoke Status: never smokerTobacco Use: NoDo you vape? NoPassive Smoke Exposure: NoMenstrual HistoryLast Menstrual Period (LMP): 08/02/2019Any possibility of ? NoComments: IUD just removed Healthcare HistorySince your last office visit...Have you been admitted to the hospital? NoHave you been to an emergency room (ER) or urgent care clinic? NoHave you seen another healthcare provider? Yes - [facility]Have you seen a dentist? Yes - [facility] in september Rate Your HealthIn general, would you say your health is? GoodPain AssessmentAre you currently having any pain which... You would like your provider to address? Yes Affects your activity level? YesDepression Screening - PHQ-2Over the last two weeks, have you... Had little interest or pleasure in doing things? Not at all Been feeling down, depressed, or hopeless? Not at all PHQ-2 Score: 0Anxiety Screening - DESHAWN-2Over the last two weeks, have you been... Feeling nervous, anxious, or on edge? Not at all Unable to stop or control worrying? Not at all DESHAWN-2 Score: 0Food InsecurityWithin the past year...Did you worry whether your food would run out before you got money to buy more? NoWas there a time when the food you bought didn't last and you didn't have money to get more? NoInfectious Disease / Travel ScreeningRecent travel for you, your family, and/or any sexual partners? NoPain AssessmentPain ScaleNumeric Rating Scale: 7 / 10Location: lower back and hips Duration: 4-7 daysFrequency: DailyCharacter/Quality: aching, dull, throbbing and pressureIs the pain radiating? YesTo what body part(s) is the pain radiating? back to hipsScreening, Brief Intervention, & Referral to Treatment (SBIRT)Pre-Screening Questions How many times have you have 4 or more drinks in a day? 0How many times have you used an illegal drug or used a prescription medication for a non-medical reason? 0Performed by: Genevieve Hunter LPN, September 16, 2019 3:44 PMPatient History Medical History:Surgical History:gallbladderleaptonsils removalFamily History:Heart disease (Mother, Maternal Grandmother)Diabetes (Mother)Epilepsy (Sister)Social/Personal History: Chief Complaintfollow up labs room 12 C/O Pain in low back into hips History of Present Illness (HPI)29 yo here for FU on labs also c/o pain in lower back and hips Pt states pain started about one week ago. Pt states may have picked up baby 25 pounds 9 month old [address] "[address]". (Poor Body mechanics. )Pt denies any other concerns today. HPI performed by: Karla MCMULLEN, September 16, 2019 4:22 PMTransitions of Care InboundProblem ReviewProblem List was reviewed and/or updated during this visit.Medication Reconciliation & ReviewMedication List was reviewed and/or updated during this visit, including review of any xxtp-adv-zfiuiku medications, herbal therapies, and/or supplements.Allergy ReviewAllergy List was reviewed and/or updated during this visit.Adult Preventive CareLabs/Meds/Other Counseling-Nutrition and Physical Activity:BMI Interpretation: Obese (09/16/2019) Counseling: Done (09/16/2019) Physical Activity: Done (09/16/2019)Cancer Screening Pap Smear/HPV TestingReviewed: Previous Comments: done at [facility] and breast [facility] (08/05/2019)Today's Comments: done july of 2019Review of Systems General: Denies loss of appetite, chills, dizziness, fatigue, fever, continued fever, headache, feeling ill, sweats, night sweats, sleep disturbances, weight loss. Eyes: Denies blurring of vision, double vision, irritation, discharge, vision loss, eye pain, eye swelling, droopy eyelid, sensitivity to light, redness, itching. Ears/Nose/Throat: Denies earache, ear discharge, ringing in ears, decreased hearing, nasal congestion, nosebleeds, runny nose, sore throat, hoarseness, difficulty swallowing, dry mouth, tooth pain, bleeding gums, swollen glands. Cardiovascular: Denies chest pain, palpitations, feeling faint, trouble breathing w/exertion, SOB upon lying down, SOB at night, peripheral edema, elevated blood pressure, decreased heart rate. Respiratory: Denies cough, difficulty breathing, shortness of breath, excessive sputum, coughing up blood, wheezing, chest pain. Gastrointestinal: Denies nausea, vomiting, bleeding, burning, itching, irritation, cramps, diarrhea, constipation. Genitourinary: Denies urinary incontinence, pain with urination, burning with urination, urinary frequency, urinary hesitancy, urinary urgency, urinary urgency at night, incomplete emptying, blood in urine. Musculoskeletal: Complains of back pain, joint pain. acute back and hip painSkin: Denies rash, hives, redness, itching, dryness, nail changes, suspicious lesions, athlete's foot, rash on palms, rash on bottom of feet. Neurologic: Denies muscle impairment, weakness, numbness/tingling, seizures, slurred speech, feeling faint, tremors, vertigo, paralysis on one side, paralysis on both sides. Psychiatric: Denies depression, anxiety, memory loss, mental disturbance, s uicidal ideation, homicidal ideation, hallucinations, paranoia, feeling stressed, hearing voices. Endocrine: Denies cold intolerance, heat intolerance, excessive thirst, excessive hunger, excessive urination, weight loss, weight gain. Heme/Lymphatic: Denies abnormal bruising, bleeding, enlarged lymph nodes. Physical ExamGeneral Appearance: well nourished, well hydrated, no acute distressEyes, External: conjunctivae and lids normal, EOMIRespiratory, Auscultation: clear to auscultation bilaterally; no rales, rhonchi, or wheezesRespiratory, Effort: no intercostal retractions or use of accessory musc lesCardiovascular, Auscultation: S1, S2 audible; no murmur, rub, or gallop; RRRPeripheral Circulation: no clubbing, cyanosis, edema, or varicositiesAbdomen: soft, non-tender, no masses, bowel sounds normalGait & Station: normalSkin, Inspection: no rashes, lesions, or ulcerationsOrientation: oriented to time, place, and personMood & Affect: no depression, anxiety, or agitationJudgment & Insight: intactCare Management Plan Transitions of CareInboundRate Your HealthIn general, would you say your health is? GoodAssessment & Plan Problems:Added: Acute low back pain (ICD-724.2) (MWN44-S10.5) Assessment: Instructions: We have sent a prescription to your pharmacy today. Please take medication as prescribed. Please report any major side effects. may take warm baths or showers to relax muscles. please try to change your position slowly. Please try to avoid stenous activities.vitamin D deficiency (ICD-268.9) (UBD70-A82.9) Assessment: Instructions: We have sent a prescription to your pharmacy today. Please take medication as prescribed. Please report any major side effectsAssessed:Obesity, unspecified (OBS79-G00.9) Assessment: Instructions: Please continue lifestyle changes to include healthy diet and physical activities. Please try to limit sugars and carbohydrates in your diet. Please try to avoid processed foods.Anxiety depression (ICD-300.09) (ICD10- F41.8) Assessment: Instructions: We have made a referral for you today. We will contact you to set this upHealth Screening (ICD-V70.0) (UUG05-T21.9) Assessment: Instructions: We have reviewed your lab results with you today.Assessment not Saved vitamin D deficiency (HJQ79-O61.9): Patient Instructions/Care Plan: Obesity- unspecified: Please continue lifestyle changes to include healthy diet and physical activities. Please try to limit sugars and carbohydrates in your diet. Please try to avoid processed foods.Anxiety depression: We have made a referral for you today. We will contact you to set this upHealth Screening: We have reviewed your lab results with you today.Acute low back pain: We have sent a prescription to your pharmacy today. Please take medication as prescribed. Please report any major side effects. may take warm baths or showers to relax muscles. please try to change your position slowly. Please try to avoid stenous activities.vitamin D deficiency: We have sent a prescription to your pharmacy today. Please take medication as prescribed. Please report any major side effects Plan developed in collaboration with patient and/or familyMedications:VITAMIN D3 80875 UNIT ORAL TABLETNAPROXEN 500 MG ORAL TABLETMedication Changes:New Prescription:NAPROXEN 500 MG ORAL TABLET-take one tablet by mouth two times daily as needed. Qty: 60[Tablet] Refills: 2 Method: ElectronicVITAMIN D3 53516 UNIT ORAL TABLET-1 po q wk for 12 wks, then change to 1000 unit tablet daily thereafter Qty: 12[Tablet] Refills: 0 Method: ElectronicAllergies:No Known Allergies (updated 08/05/2019) Orders:Mental Health Consult [CPT-26187] Adult - Ofc Vst, EST, Level IV [CPT-04559] Follow-Up Return to clinic: 3 months for follow up. Clinical Visit Summary CompletedMedications:VITAMIN D3 47036 UNIT ORAL TABLET (CHOLECALCIFEROL) 1 po q wk for 12 wks, then change to 1000 unit tablet daily thereafter #12[Tablet] x 0 Route:ORAL Entered and Authorized by: Karla MCMULLEN Method used: Electronically to [facility]* (retail) [address] [place] [address] Note to Pharmacy: Route: ORAL; Indications: VITAMIN D DEFICIENCY RxID: [id number] 500 MG ORAL TABLET (NAPROXEN) take one tablet by mouth two times daily as needed. #60[Tablet] x 2 Route:ORAL Entered and Authorized by: Karla MCMULLEN Method used: Electronically to [facility]* (omkaeu) [address] [place] [address] Note to Pharmacy: Route: ORAL; Indications: ACUTE LOW BACK PAIN RxID: [id number]] Name Value Range Interpretation Code Description Data Rubi rce(s) Supporting Document(s) ID Date Data Source [id number] 08/19/2019 09:32:01 AM EST [facility] Labs In-House Blood TestsDate/Time Colle cted: August 19, 2019 9:32 AMTest Result Reference Range Normal ValueComments: blood draw done in offcie done in the right ac tolerated well Bunny Napoles MA, August 19, 2019 9:32 AMAssessment & Plan Orders:35947-Mns Vst-Est Level I [CPT-30373] 80095 - Venipuncture [CPT-91458] Electronically signed by Karla MCMULLEN on 06/2020 at 1:13 PM Name Value Range Interpretation Code Description Data Rubi rce(s) Supporting Document(s) ID Date Data Source [id number] 08/19/2019 09:25:00 AM [facility] Name Value Range Interpretation Code Description Data Rubi rce(s) Supporting Document(s) HGBA1C 5.5 % [facility] ID Date Data Source [id number] 08/19/2019 09:25:00 AM [facility] Name Value Range Interpretation Code Description Data Rubi rce(s) Supporting Document(s) HCT 41.3 % 36.0-47.0 [facility] HGB 13.0 g/dL 12.0-15.5 [facility] MCH 31.5 G/DL pg 32.0-36.5 L [facility] MCHC 27.3 PG % 27.0-33.0 [facility] PLATELETS 229 10 10*3/mm3 150-450 [facility] RBC 4.76 10 10*6/mm3 4.00-5.40 [facility] RDW 14.3 % 11.5-14.5 [facility] WBC TOTAL 5.8 4.0-10.0 [facility] ID Date Data Source [id number] 08/19/2019 09:25:00 AM [facility] Name Value Range Interpretation Code Description Data Rubi rce(s) Supporting Document(s) BG FASTING 92 mg/dL 70-100 N [facility] T4, FREE 1.07 ng/dL 0.76-1.46 [facility] TSH 2.810 microintl units/mL 0.358-3.740 N [facility] VIT D25 TOT 16.2 ng/mL 30.0-100.0 L [facility] ID Date Data Source [id number] 08/05/2019 01:48:30 PM [facility] Measurements & CalculationsHeight: 69 inches (5 ft. 9 in.) 175.26 cm Weight: 211 pounds 95.91 kg Body Mass Index (BMI): 31.27BMI Interpretation: ObeseBody Surface Area (BSA): 2.12Weight Management Education Done (Nutrition/Physical Activity)Vital SignsTemperature: 97.5FPulse Rate: 80 beats/minuteRespiratory Rate: 17 respirations/minuteBlood Pressure: 120/82 O2 Saturation: 98% Vital Signs performed by: Cat Ybarra MA, August 05, 2019 2:16 PMInitial Intake Information from: patientRoom #: 13Infectious Disease- Travel Have you or your sexual partner travelled outside of the country recently? NoSmoking, Tobacco or Smoke Exposure StatusSmoke Status: never smokerTobacco Use: NoPassive Smoke Exposure: NoMenstrual HistoryLast Menstrual Period (LMP): 07/30/2019LMP History: UnknownAny possibility of ? NoComments: irregular- just got off [facility] HistorySince your last office visit...Have you been admitted to the hospital? NoHave you been to an emergency room (ER) or urgent care clinic? NoHave you seen another healthcare provider? Yes - [facility]YN- [facility] careHave you seen a dentist? NoIntake performed by: Cat Ybarra MA, August 05, 2019 2:00 PMRate Your HealthIn general, would you say your health is? GoodPain AssessmentAre you currently having any pain which... You would like your provider to address? No Affects your activity level? NoDepression Screening - PHQ-2Over the last two weeks, have you... Had little interest or pleasure in doing things? Several days Been feeling down, depressed, or hopeless? Not at all PHQ-2 Score: 1Anxiety Screening - DESHAWN-2Over the last two weeks, have you been... Feeling nervous, anxious, or on edge? Nearly every day Unable to stop or control worrying? Several days DESHAWN-2 Score: 4Infectious Disease- Travel Cont. Any possibility of ? NoPHQ-9 1. Over the last 2 weeks, patient reports the following frequency of symptoms: a. Little interest or pleasure in doing things -Several days b. Feeling down, depressed, or hopeless -Not at all c. Trouble falling asleep, staying asleep, or sleeping too much -Nearly every day d. Feeling tired or having little energy -Nearly every day e. Poor appetite or overeating -More than half the days f. Feeling bad about yourself, feeling that you are a failure, or feeling that you have let yourself or your family down -Several days g. Trouble concentrating on things such as reading the newspaper or watching television -More than half the days h. Moving or speaking so slowly that other people could have noticed. Or being so fidgety or restless that you have been moving around a lot more than usual -Nearly every day i. Thinking that you would be better off or that you want to hurt yourself in some way -Not at all2. If you checked off any problems, how difficult have these problems made it for you to do your work, take care of things at home, or get along with other people? - Somewhat DifficultToday's PHQ-9 Results Score: 15 Severity: Moderately Severe Diagnosis Recommendation: No recommendation Functional Impairment: Somewhat DifficultDepression Screening Follow-Up ActionToday's Follow-Up Action Depression follow-up done. Follow-Up Action: pt refused therapy at this timeGeneralized Anxiety Disorder 7-Item Screening (DESHAWN-7)Answer Guide:0 = Not at all1 = Several days2 = Over half the days3 = Nearly every dayOver the last 2 weeks, how often have you been bothered by the following problems?Feeling nervous, anxious, or on edge: 3Not being able to stop or control worryinWorrying too much about different things: 1Trouble relaxinBeing so restless that it's hard to sit still: 3Becoming easily annoyed or irritable: 3Feeling afraid as if something awful might happen: 1Answer Guide:0 = Not difficult at all1 = Somewhat difficult2 = Very difficult3 = Extremely difficultHow difficult have these made it for you to do your work, take care of things at home, or get along with other people? 1GAD-7 Screening Results DESHAWN-2 Score: 4GAD-7 Score: 15Functional Impairment: Somewhat difficultRecommendation: Severe anxietyPRAPARE Sociodemographic Characteristics Race: White Ethnicity: Not or Preferred Language: EnglishFamily and Home Address: [facility] [place] [address] What is your housing situation today? I have housing Are you worried about losing your housing? NoMoney and Resources What is the highest level of school that you have finished? some college Employed? 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 Denies Insecurity: food, utilities, clothing, infant childcare provider, phone, legal services, otherIn the past year, have you had trouble affording costs associated with health insurance (such as deductibles, co-payments, etc.)? NoSocial and Emotional Health How often do you see or talk to people that you care about and feel close to? 3 to 5 times a week How stressed are you? Quite a bitAdditional Optional Domains In the past 3 months, have you spent more than 2 nights in a row in a correction, [place] health [place], correction center or juvenile correctional facility? No Has lack of transportation kept you from medical a ppointments or from getting your medications? NoIn the past year, have you had trouble getting any of the following when it was really needed (check all that apply)?noneIn the past year, have you had trouble paying the costs associated with health care or medicine (such as co-payments, costs for services, prices of medicines)? NoHow confident are you that you can control and manage most of your health problems? Very confident Are you a refugee? No (Country of origin: [place]) Do you feel physically and emotionally safe where you live? Yes In the past year, have you been afraid of a partner, ex-partner? NoScreening, Brief Intervention, & Referral to Treatment (SBIRT)Pre-Screening Questions How many times have you have 4 or more drinks in a day? 0How many times have you used an illegal drug or used a prescription medication for a non- medical reason? 0Patient History Surgical History:gallbladderleaptonsils removalFamily History:Heart disease (Mother, Maternal Grandmother)Diabetes (Mot her)Epilepsy (Sister)Social/Personal History: Smoking Status: never smokerChief Complaintnew ptHistory of Present Illness (HPI)29 yo female patient here today for annual exam. Pt states she hasn't had PCP in a few years. Pt states have been living here for 3 1/2 years, spouse, moved here from [place]. Pt states only just OBGYN while . Pt states mother of four children ages 11 7 and 2 old and 8 months Pt states she has headaches everyday. Pt states she had her son 8 months ago and is constantly gaing weight since then. Pt states "I weigh more now then I had right before I had my son at 9 months ." Pt states she has tried to cut back on the amount of food consumed but nothing seems to work.Pt states just had her Mirena IUD taken out. Pt states that her recently had a vasectomy. Pt states last was complicated by low BP. Pt states sees Nathaly Cortes for her OB. Pt states 7 years old son has ADHD so she have been really stressed dealing with that. Pt main concern is to get esxtablish and start addrressing things such as her anxiety and depression. Pt states OB had tried Buspar and Sertraline in the the past but she didnt like the side effects. Pt denies any thoughts of suicidal or homicidal ideations. Pt states work front desxt [facility] denies [facility]. Pt denies alcoholism. Pt denies illicit drug use. HPI performed by: Karla MCMULLEN, August 05, 2019 2:26 PMTransitions of Care InboundProblem ReviewProblem List was reviewed and/or updated during this visit.Medication Reconciliation & ReviewMedication List was reviewed and/or updated during this visit, including review of any vkrf-lll-gufgili medications, herbal therapies, and/or supplements. Patient has no known medications.Allergy ReviewAllergy List was reviewed and/or updated during this visit. Patient has no known allergies.Adult Preventive CareProvider Calculated and Reviewed all Clinical Protocols for patient today. Labs/Meds/Other Counseling-Nutrition and Physical Activity:BMI Interpretation: Obese (08/05/2019) Counseling: Done (08/05/2019) Physical Activity: Done (08/05/2019)Cancer Screening Pap Smear/HPV TestingReviewed: Today's Comments: [facility] General: Complains of headache. Denies loss of appetite, chills, dizziness, fatigue, fever, continued fever, feeling ill, sweats, night sweats, sleep disturbances, weight loss. Eyes: Denies blurring of vision, double vision, irritation, discharge, vision loss, eye pain, eye swelling, droopy eyelid, sensitivity to light, redness, itching. Ears/Nose/Throat: Denies earache, ear discharge, ringing in ears, decreased hearing, nasal congestion, nosebleeds, runny nose, sore throat, hoarseness, difficulty swallowing, dry mouth, tooth pain, bleeding gums, swollen glands. Cardiovascular: Denies chest pain, palpitations, feeling faint, trouble breathing w/exertion, SOB upon lying down, SOB at night, peripheral edema, elevated blood pressure, decreased heart rate. Respiratory: Denies cough, difficulty breathing, shortness of breath, excessive sputum, coughing up blood, wheezing, chest pain. Gastrointestinal: Denies nausea, vomiting, bleeding, b urning, itching, irritation, cramps, diarrhea, constipation. Genitourinary: Denies urinary incontinence, pain with urination, burning with urination, urinary frequency, urinary hesitancy, urinary urgency, urinary urgency at night, incomplete emptying, blood in urine, pelvic pain. Musculoskeletal: Denies back pain, joint pain, leg pain, joint swelling, body aches, muscle aches, muscle cramps, muscle weakness, stiffness, recent injury. Skin: Denies rash, hives, redness, itching, dryness, nail changes, suspicious lesions, athlete's foot, rash on palms, rash on bottom of feet. Neurologic: Denies muscle impairment, weakness, numbness/tingling, seizures, slurred speech, feeling faint, tremors, vertigo, paralysis on one side, paralysis on both sides. Psychiatric: Complains of depression, anxiety, feeling stressed. Denies memory loss, mental disturbance, suicidal ideation, homicidal ideation, hallucinations, paranoia, hearing voices. Endocrine: Denies cold intolerance, heat intolerance, excessive thirst, excessive hunger, excessive urination, weight loss, weight gain. Physical ExamGeneral Appearance: well nourished, well hydrated, no acute distressEyes, External: conjunctivae and lids normal, EOMIRespiratory, Auscultation: clear to auscultation bilaterally; no rales, rhonchi, or wheezesRespiratory, Effort: no intercostal retractions or use of accessory musclesCardiovascular, Auscultation: S1, S2 audible; no murmur, rub, or gallop; RRRPeripheral Circulation: no clubbing, cyanosis, edema, or varicositiesAbdomen: soft, non-tender, no masses, bowel sounds normalGait & Station: normalSkin, Inspection: no rashes, lesions, or ulcerationsOrientation: oriented to time, place, and personMood & Affect: no depression, anxiety, or agitationJudgment & Insight: intactCare Management Plan Transitions of CareInboundRate Your HealthIn general, would you say your health is? GoodAssessment & Plan Problems:Added: Endocrine/metabolic screening (CJM91-I00.29) Assessment: Instructions: We have ordered labs for saavedra today. Please reurn prior to your next visit to have labs drawn. Please fast for 8-10 hours prior.Anxiety depression (ICD-300.09) (UNN77-L86.8) Assessment: Instructions: We have ordered labs for you today. Please retuurn prior to your next visit to have labs drawn. Please continue to monitor report and avoid triggers causing increased anxiety and or depression.Headache (ICD-784.0) (YPF13-I30) Assessment: Instructions: labs ordered today. Please try to monitor and avoid triggers. please try to maintain good nutrition and adequate hydration.Health Screening (ICD-V70.0) (EAH88-L55.9) Assessment: Instructions: Fasting labs ordered today.Obesity, unspecified (DMC79-Q20.9) Assessment: Instructions: Please continue lifestyle changes to include healthy diet and physical activities. Please try to limit sugars and carbohydrates in your diet. Please try to avoid processed foods.Anxiety depression (ICD-300.09) (WWI25-E26.8) Assessment: Will get labs done prior to starting medsPatient Instructions/Care Plan: Endocrine/metabolic screening: We have ordered labs for saavedra today. Please reurn prior to your next visit to have labs drawn. Please fast for 8-10 hours prior.Anxiety depression: We have ordered labs for you today. Please retuurn prior to your next visit to have labs drawn. Please continue to monitor report and avoid triggers causing increased anxiety a nd or depression.Headache: labs ordered today. Please try to monitor and avoid triggers. please try to maintain good nutrition and adequate hydration.Health Screening: Fasting labs ordered today.Obesity- unspecified: Please continue lifestyle changes to include healthy diet and physical activities. Please try to limit sugars and carbohydrates in your diet. Please try to avoid processed foods. Plan developed in collaboration with patient and/or familyAllergies:No Known Allergies (updated 08/05/2019) Orders:COMP METABOLIC PANEL [CPT-78442] CBC W/DIFF [CPT-07192] HgBA1c [CPT-79736] LIPID PANEL [CPT- 49319] TSH [CPT-37822] T-4 free [CPT-56193] Vitamin D 250H Unspecified [CPT- 42149] URINALYSIS [CPT-23299] VITAMIN B-12 [CPT-39372] Folate (Folic Acid Serum) [CPT-13698] Adult - Ofc Vst, NEW, Level III [CPT-12019] Follow-Up Return to clinic: 4-6 weeks for follow up. Clinical Visit Summary CompletedVaccines Administered/Entered:Vaccination Group: H1N1 InfluenzaSeries: 1 NOT GIVENVaccination: Influenza A (H1N1) Monoval PF Intramuscular SuspensionReason Not Given: Patient decisionEntered Date: 08/05/2019 12:00 AMComments: pt states [facility] for workEntered by: Cat Ybarra MA Name Value Range Interpretation Code Description Data Rubi rce(s) Supporting Document(s) Procedure Vital Signs ID Date Data Source UNK Name Value Range Interpretation Code Description Data Source(s) Body weight 3426.08 [oz_av] 3426.08 [oz_av] ATH SABA ([facility]) Systolic blood pressure 98 mm[Hg] 98 mm[Hg] A THENA ([facility]) Body height 69 [in_i] 69 [in_i] EL ([facility]) Diastolic blood pressure 64 mm[Hg] 64 mm[Hg] EL ([facility]) Body weight 3417.6 [oz_av] 3417.6 [oz_av] ATHEN A ([facility]) Systolic blood pressure 115 mm[Hg] 115 mm[Hg] [facility] Body height 69 [in_i] 69 [in_i] EL ([facility]) Diastolic blood pressure 72 mm[Hg] 72 mm[Hg] EL ([facility]) Body weight 3414.08 [oz_av] 3414.08 [oz_av] ATH SABA ([facility]) Systolic blood pressure 94 mm[Hg] 94 mm[Hg] A THENA ([facility]) Body height 69 [in_i] 69 [in_i] EL ([facility]) Diastolic blood pressure 66 mm[Hg] 66 mm[Hg] EL ([facility]) Body weight 3364 [oz_av] 3364 [oz_av] EL ([facility]) Systolic blood pressure 112 mm[Hg] 112 mm[Hg] A THENA ([facility]) Body height 69 [in_i] 69 [in_i] EL ([facility]) Diastolic blood pressure 78 mm[Hg] 78 mm[Hg] EL ([facility]) Body weight 3376 [oz_av] 3376 [oz_av] EL ([facility]) Systolic blood pressure 120 mm[Hg] 120 mm[Hg] A THENA ([facility]) Body height 69 [in_i] 69 [in_i] EL ([facility]) Diastolic blood pressure 82 mm[Hg] 82 mm[Hg] EL ([facility]) Diastolic blood pressure 80 mm[Hg] 80 mm[Hg] eCW1 ([facility]) Systolic blood pressure 112 mm[Hg] 112 mm[Hg] e CW1 ([facility]) Body mass index (BMI) [Ratio] 31.37 kg/m2 31.37 kg/m2 eCW1 ([facility]) Body height 68.5 [in_us] 68.5 [in_us] eCW1 ([facility]) Body weight Measured 209.4 [lb_av] 209.4 [lb_av ] eC ([facility])
[2020-09-08] MEDS ORDERED: JUNE1.5T (17:15)
[2020-09-08] MEDS ORDERED: FLUO20CA22 (17:15)
--- OUTSIDE RECORDS SUMMARY | 2020-09-08 18:29 | CCD ---
Author Author [facility] Organization [facility] Address Unknown Phone Unavailable Care Team Providers Care Investigations Manager Name Role Phone Cindy Alejandra Unavailable [phone] Casa, Karla SOCIAL SERVICES MANAGER SOCIAL SERVICES MANAGER Unavailable Unavailable Ben Bolt, A Karla SOCIAL SERVICES MANAGER Unavailable Unavailable Casa, A Karla SOCIAL SERVICES MANAGER Unavailable Unavailable Casa, A Karla SOCIAL SERVICES MANAGER Unavailable Unavailable Casa, A Karla SOCIAL SERVICES MANAGER Unavailable Unavailable Casa, A Karla SOCIAL SERVICES MANAGER Unavailable Unavailable Casa, A Karla SOCIAL SERVICES MANAGER Unavailable Unavailable Casa, A Karla SOCIAL SERVICES MANAGER Unavailable Unavailable Casa, A Karla SOCIAL SERVICES MANAGER Unavailable Unavailable Casa, A Karla SOCIAL SERVICES MANAGER Unavailable Unavailable Casa, A Karla SOCIAL SERVICES MANAGER Unavailable Unavailable Ben Bolt, A Karla SOCIAL SERVICES MANAGER Unavailable Unavailable Casa, A Karla SOCIAL SERVICES MANAGER Unavailable Unavailable Casa, A Karla SOCIAL SERVICES MANAGER Unavailable Unavailable Casa, A Karla SOCIAL SERVICES MANAGER Unavailable Unavailable Casa, A Karla SOCIAL SERVICES MANAGER Unavailable Unavailable Casa, A Karla SOCIAL SERVICES MANAGER Unavailable Unavailable Casa, A Karla SOCIAL SERVICES MANAGER Unavailable Unavailable Casa, A Karla SOCIAL SERVICES MANAGER Unavailable Unavailable Casa, A Karla SOCIAL SERVICES MANAGER Unavailable Unavailable Casa, A Karla SOCIAL SERVICES MANAGER Unavailable Unavailable Casa, A Karla SOCIAL SERVICES MANAGER Unavailable Unavailable Casa, A Karla SOCIAL SERVICES MANAGER Unavailable Unavailable Casa, A Karla SOCIAL SERVICES MANAGER Unavailable Unavailable Casa, A Karla SOCIAL SERVICES MANAGER Unavailable Unavailable Casa, A Karla SOCIAL SERVICES MANAGER Unavailable Unavailable Casa, A Karla SOCIAL SERVICES MANAGER Unavailable Unavailable Casa, A Karla SOCIAL SERVICES MANAGER Unavailable Unavailable Casa, A Karla MCMULLEN Unavailable Unavailable Re-disclosure Warning The records that [...] is protected by Article 27-F of the [facility] Public Health law. If you continue you may have access to information: Regarding HIV / AIDS; Provided by facilities licensed or operated by the [facility] Office of Mental Health; or Provided by the [facility] Office for People With Developmental Disabilities. If such information is present, then the following [facility] mandated warning applies: This information has [...] law may result in a fine or [place] health care facility sentence or both. A general authorization for the release of medical or other information is NOT sufficient authorization for further disc losure. Allergies and Adverse Reactions Type Description Substance Reaction Status Data Source(s ) Allergy to substance Allergy to substance Allergy to substance EL ([facility]) Encounters Encounter Providers Location Date Indications Data Source(s ) Cindy Alejandra LMSW: [address] [place] [phone], Ph. Attender: Cindy SOTO - [facility] Medical 05/25/2020 12:00:00 AM BRYANNA GALLEGOS ([facility]) Outpatient Attender: BENEDICT MCMULLEN 04/09/2020 03:44:00 P M EDT [facility] Outpatient Attender: Karla SHINEP FP 04/05/2020 12:2 5:01 AM EDT [facility] Outpatient Attender: BENEDICT SHINEP FP 03/29/2020 02:39:00 P M EDT [facility] Outpatient Attender: BENEDICT Cormier SOCIAL SERVICES MANAGER FP 2020 03:04:00 P M EDT [facility] Outpatient Attender: BENEDICT SHINEP FP 03/10/2020 03:39:00 P M EDT [facility] Outpatient Attender: Karla Cormier SOCIAL SERVICES MANAGER FP 02/26/2020 12:2 4:01 AM EDT [facility] Outpatient Attender: BENEDICT SHINEP FP 02/24/2020 08:37:01 A M EDT [facility] Outpatient Attender: BENEDICT Cormier SOCIAL SERVICES MANAGER FP 02/23/2020 03:42:02 P M EDT [facility] Outpatient Attender: BENEDICT Cormier SOCIAL SERVICES MANAGER FP 02/18/2020 10:07:00 A M EDT [facility] Outpatient Attender: BENEDICT Cormier SOCIAL SERVICES MANAGER FP 02/09/2020 09:07:00 A M EDT [facility] Outpatient Attender: BENEDICT Cormier SOCIAL SERVICES MANAGER FP 01/26/2020 03:14:02 P M EDT [facility] Outpatient Attender: BENEDICT SHINEP FP 01/26/2020 03:14:02 P M EDT [facility] Outpatient Attender: BENEDICT Cormier SOCIAL SERVICES MANAGER FP 01/26/2020 03:14:02 P M EDT [facility]patient Attender: Karla SHINEP FP 01/26/2020 03:1 4:02 PM EDT [facility] Outpatient Attender: Karla SHINEP FP 01/26/2020 11:1 7:04 AM EDT [facility] Outpatient Attender: BENEDICT SHINEP FP 01/26/2020 08:31:01 A M EDT [facility] Outpatient Attender: Karla SHINEP FP 01/22/2020 05:1 8:01 PM EDT [facility] Outpatient Attender: BENEDICT SHINEP FP 01/22/2020 05:18:00 P M EDT [facility] Outpatient Attender: BENEDICT SHINEP FP 01/22/2020 09:57:00 A M EDT [facility] Outpatient Attender: BENEDICT Cormier SOCIAL SERVICES MANAGER 01/21/2020 03:19:00 P M EDT [facility] Outpatient Attender: BENEDICT Cormier SOCIAL SERVICES MANAGER 01/20/2020 10:52:01 A M EDT [facility] Outpatient Attender: BENEDICT Cormier SOCIAL SERVICES MANAGER 01/20/2020 09:53:01 A M EDT [facility] Outpatient Attender: BENEDICT Cormier SOCIAL SERVICES MANAGER 01/05/2020 10:10:01 A M EDT [facility] Outpatient Attender: BENEDICT Cormier SOCIAL SERVICES MANAGER 12/12/2019 10:06:01 A M EDT [facility] Outpatient Attender: BENEDICT Cormier SOCIAL SERVICES MANAGER 12/11/2019 02:37:00 P M EDT [facility] Outpatient Attender: BENEDICT Cormier SOCIAL SERVICES MANAGER 12/11/2019 02:28:00 P M EDT [facility] Outpatient Attender: [facility]ENED[facility]ormier [facility]/11/2019 02:27:00 P M EDT [facility] Outpatient Attender: Karla SHINEP 12/09/2019 04:4 9:59 PM EDT [facility] Outpatient Attender: BENEDICT Cormier [facility] 12/09/2019 12:52:01 P M EDT [facility] Outpatient Attender: BENEDICT Cormier SOCIAL SERVICES MANAGER 11/20/2019 11:53:00 A M EDT [facility]2019 01:46:02 P M EDT [facility] Outpatient Attender: Karla MCMULLEN [facility] 11/11/2019 01:4 6:01 PM EDT [facility] Outpatient Attender: Karla MCMULLEN [facility] 09/26/2019 03:0 5:01 PM EDT [facility] Outpatient Attender: BENEDICT MCMULLEN [facility] 09/16/2019 04:40:01 P M EST [facility]2019 04:40:00 P M [facility]/16/2019 04:3 9:01 PM [facility] Outpatient Attender: BENEDICT MCMULLEN [facility] 09/16/2019 04:39:00 P M [facility]/15/2019 01:30:00 P [facility] Att[facility]a [facility] 08/27/2019 01:1 4:01 PM [facility] 08/19/2019 09:20:01 A M [facility] 08/19/2019 09:05:01 A [facility] 08/19/2019 08:57:01 A M [facility] Outpatient Attender: Karla Cormier [facility] 08/06/2019 09:1 1:01 AM [facility] 08/05/2019 03:27:01 P M [facility] Outpatient Attender: BENEDICT Cormier [facility] 08/05/2019 03:26:01 P [facility] 08/05/2019 03:25:00 P M [facility] Outpatient Attender: BENEDICT Cormier [facility] 08/05/2019 03:00:03 P M [facility] Outpatient Attender: BENEDICT Cormier [facility] 08/05/2019 02:15:01 P M [facility] Att[facility] 08/05/2019 02:15:00 P M [facility] 08/05/2019 01:45:00 P M [facility] 08/05/2019 01:43:00 P M [facility] [address] [phone] 07/22/2019 12:00:00 AM [place] [address] ([facility]) Insurance Providers Payer name Policy type / Coverage type Policy ID Covered libertarian ID Covered libertarian's relationship to gibson Policy Gibson Plan Information [facility] [id number] SP [id number] [facility] P [id number] S [id number] Managed Care - [facility] Community Plan S [id number] S [id number] Medicaid O [id number] S [id number] Managed Care - [facility] Community Plan S [id number] S [id number] UNHC COMMUNITY PLAN MCDHMO [id number] SP [id number] UNHC COMMUNITY PLAN MCDO [id number] SP [id number] [facility](MCAID) O [id number] S [id number] ANSI-Medicaid [id number] MARYAN [id number] SP [id number] 000 [facility] Health Maintenance Organization (HMO) [id number] Self [id number] MEDICAID [id number] SP [id number] MEDICAID [id number] SP [id number] [facility] [id number] [facility] [id number] SELF PAY ONLY [id number] SP [id number] SELF PAY ONLY [id number] SP MARYAN [id number] SP [id number] Problems, Conditions, and Diagnoses Code Display Name Description Problem Type Effective Dates Data Source(s) V70.0 Encounter for general adult medical exam ination with abnormal findings Encounter for general adult medical examination with abnormal findings 02/23/2020 03:41:53 PM EDT [facility] [id number] Encounter for administrative examination s, unspecified Encounter for administrative examinations, unspecified 02/23/2020 03:41:53 PM EDT [facility] 871642301 Insomnia, unspecified Insomnia, unspecified 02/23/2020 03:41:53 PM EDT [facility] [id number] Procedure by method Procedure by Method Problem 0 02/23/2020 12:00:00 AM EDT [facility] [id number] Finding related to sleep Finding Related to Sleep Prob margarito 02/23/2020 12:00:00 AM EDT [facility] ([facility]) [id number] History and physical examination, admini strative History and Physical Examination, Administrative Problem 02/23/2020 12:00:00 AM EDT KESHAWN Bolanos ([facility]) 788.41 Increased frequency of urination Increased frequency o f urination 01/20/2020 10:51:59 AM EDT [facility] 00941235 Acute cystitis without hematuria Acute cystitis withou t hematuria 01/20/2020 10:51:59 AM EDT [facility] 928956606 Increased frequency of urination Increased Frequ ency of Urination Problem 01/20/2020 12:00:00 AM EDT [facility] ([facility]) 63278912 Acute cystitis Acute Cystitis Problem 01/20/2020 12:00: 00 AM EDT [facility] ([facility]) F43.8 Other reactions to severe stress TRAUMA- AND STRESSOR-RELATED DISORDER, OTHER SPECIFIED 11/11/2019 01:45:28 PM EDT [facility] 309.4 ADJUSTMENT DISORDER, W/ MIXED ANXIETY AN D DEPRESSED MOOD ADJUSTMENT DISORDER, W/ MIXED ANXIETY AND DEPRESSED MOOD 11/11/2019 01: 45:28 PM EDT [facility] 192063916 Clinical finding Clinical Finding Problem 11/11/2019 12 :00:00 AM EDT [facility] ([facility]) 65862468 Adjustment disorder with mixed disturban ce of emotions AND conduct Adjustment Disorder with Mixed Disturbance of Emotions and Conduct Problem 11/11/2019 12:00:00 AM EDT [facility]) 268.9 vitamin D deficiency vitamin D deficiency 09/15 04:38:36 PM [facility] 724.2 Acute low back pain Acute low back pain 020 04:38:36 PM [facility] 232421667 Low back pain Low Back Pain Problem 09/16/2019 12:00:00 AM EST [facility] ([facility]) 64617748 Vitamin D deficiency Vitamin D Deficiency Problem 09/16/2019 12:00:00 AM EST [facility] ([facility]) V70.0 Health Screening Health Screening 08/05/2019 02 :58:50 PM [facility] 377781751 Endocrine/metabolic screening Endocrine/metabolic scre ening 08/05/2019 02:58:50 PM [facility] 784.0 Headache Headache 08/05/2019 02:58:50 PM RODOLFO Gottlieb [facility] 300.09 Anxiety depression Anxiety depression 0 02:58:50 PM [facility] 545550650 Obesity, unspecified Obesity, unspecified 08/05/2019 02:58:50 PM [facility] 125301665 Clinical finding Clinical Finding Problem 08/05/2019 12 :00:00 AM BRYANNA GALLEGOS ([facility]) 295602184 Emotional state finding Emotional State Finding Proble m 08/05/2019 12:00:00 AM BRYANNA GALLEGOS ([facility]) 201953509 General finding of observation of patien t General Finding of Observation of Patient Problem 08/05/2019 12:00:00 AM BRYANNA GALLEGOS ([facility]) 833066613 Endocrine/metabolic screening Endocrine/metabolic Scre ening Problem 08/05/2019 12:00:00 AM BRYANNA GALLEGOS ([facility]) 52928183 Headache Headache Problem 08/05/2019 12:00:00 AM RODOLFO GALLEGOS ([facility]) Surgeries/Procedures Procedure Description Date Indications Data Source(s) REMOVE INTRAUTERINE DEVICE 07/22/2019 12:00:00 AM EST eCW1 ([facility]) Results ID Date Data Source [id number] 03/29/2020 02:39:41 PM EDT [facility] [...] wellnessHave you seen a dentist? Yes - COUNT INCLUDES THE [facility] LerayIntake performed by: Janice Brannon MA, March [...] during this visit, including review of any qqio-wll-xpwqwwd medications, herbal therapies, and/or supplements.Allergy ReviewAllergy List [...] to pandemic. getting ready for PCS to [place]. Instructions: lease continue medications as prescribed. Please try to monitor, report an avoid triggers causing increased anxiety or depression.Anxiety depression (ICD-300.09) (YNW96-J66.8) Assessment: improving per patient. Taking medications as prescribed. Mother of 4 children. 2 are school age. online learning due to pandemic. getting ready for PCS to [place]. Instructions: Please continue medications as prescribed. Please try to monitor, report an avoid triggers causing increased anxiety or depression.Assessment not SavedEncounter for administrative examinations; unspecified (XGW45-J00.9): Patient Instructions/Care Plan: Anxiety depression: lease continue medications as prescribed. Please try to monitor, report an avoid triggers causing increased anxiety or depression.Anxiety depression: Please continue medications as prescribed. Please try to monitor, report an avoid triggers causing increased anxiety or depression. Plan developed in collaboration with patient and/or familyMedications:HYDROXYZINE HCL 50 MG ORAL TABLETPROZAC 20 MG ORAL CAPSULEVITAMIN D3 77161 UNIT ORAL TABLETNAPROXEN 500 MG ORAL TABLETAllergies:No Known Allergies (updated 02/23/2020) Orders:Adult - Ofc Vst, EST, Level III [CPT-41770] Follow-Up Return to clinic: 3 months for follow up. Clinical Visit Summary Completed Name Value Range Interpretation Code Description Data Rubi rce(s) Supporting Document(s) ID Date Data Source [id number] 02/23/2020 02:27:21 PM EDT [facility] [...] wellnessHave you seen a dentist? Yes - COUNT INCLUDES THE [facility] LerayIntake performed by: Genevieve Hunter LPN, February [...] for a non-medical reason? 0Performed by: Genevieve Hnuter LPN, February 23, 2020 2:41 PMPatient History [...] during this visit, including review of any dzpt-myl-paztqvr medications, herbal therapies, and/or supplements.Allergy ReviewAllergy List [...] is? FairAssessment & Plan Problems:Added: Insomnia, unspecified (IVY41-T03.00) Assessment: Instructions: Please try to avoid nighttime stimulants. Please try limit caffeine intake. may take Hydroxyzine at bedtime as needed for insomnia.Encounter for administrative examinations, unspecified (ORC52-C83.9) Assessment: Instructions: We will contact you when form is completed.Encounter for general adult medical examination with abnormal findings (ICD-V70.0) (NVH10-Q51.01) Assessment: Instructions: You have had your annual physical exam done today. Please continue mediocationas as prescribed. Please continue healthy diet and physical activities.Assessed:Anxiety depression (ICD-300.09) (JRG37-M53.8) Assessment: Instructions: We have increased the dose of your Prozac to 20 mg daily. Please take as prescribed, please report any major side effects. We have sent a prescription for Hydroxyzine as needed. Please take as prescribed. Please try to monitor report and avoid triggers cau sing increased anxiety and deprtession.Obesity, unspecified (OGS12-B81.9) Assessment: Instructions: Please continue lifestyle changes to [...] ORAL TABLETPROZAC 20 MG ORAL CAPSULEVITAMIN D3 16060 UNIT ORAL TABLETNAPROXEN 500 MG ORAL TABLETMedication Changes:Refilled:PROZAC 20 MG ORAL CAPSULE-take one tablet by mouth daily Qty: 30[Capsule] Refills: 2 Method: ElectronicNew Prescription:HYDROXYZINE HCL 50 MG ORAL TABLET-take one tablet by mouth twice daily as needed, may take one tablet at bedtime to help with sleep Qty: 90[Tablet] Refills: 2 Method: ElectronicChanged:From: ORAL PROZAC 10 MG ORAL CAPSULE Qty: [id number] Refills: 30[Capsule] To: PROZAC 20 MG ORAL CAPSULE-take one tablet by mouth daily Qty: 30[Capsule] Refills: 2Allergies:No Known Allergies (updated 02/23/2020) Orders:Adult - Ofc Vst, EST, Level IV [CPT- 11650] Follow-Up Return to clinic: 4-6 weeks for follow up on anxiety Clinical Visit Summary CompletedMedications:PROZAC 20 MG ORAL CAPSULE (FLUOXETINE HCL) take one tablet by mouth daily #30[Capsule] x 2 Route:ORAL Entered and Authorized by: Karla MCMULLEN Method used: Electronically to [facility] (retail) [address] [place] [address] Note to Pharmacy: Route: ORAL; Indications: ANXIETY DEPRESSION RxID: [id number] HCL 50 MG ORAL TABLET (HYDROXYZINE HCL) take one tablet by mouth twice daily as needed, may take one tablet at bedtime to help with sleep #90[Tablet] x 2 Route:ORAL Entered and Authorized by: Karla MCMULLEN Method used: Electronically to [facility] (retail) [address] [place] [address] Note to Pharmacy: Route: ORAL; Indications: ANXIETY DEPRESSION;INSOMNIA, UNSPECIFIED RxID: [id number] signed by Karla MCMULLEN on 02/26/2020 at 12:23 AM Name Value Range Interpretation Code Description Data Rubi rce(s) Supporting Document(s) ID Date Data Source [id number] 01/26/2020 04:50:07 PM EDT [facility] [...] you [facility] a [facility]? [facility]: Makayla Dotson , [...] during this visit, including review of any qjca-jbb-igyhfrc medications, herbal therapies, and/or supplements.Allergy ReviewAllergy List [...] is? GoodAssessment & Plan Problems:Assessed:Anxiety depression (ICD-300.09) (KXV66-I12.8) Assessment: Pt states that therapy is going [...] set this up.Assessment not Saved Anxiety depression (OIM89-J60.8): Patient Instructions/Care Plan: Anxiety depression: We have [...] and/or familyMedications:PROZAC 10 MG ORAL CAPSULEVITAMIN D3 70034 UNIT ORAL TABLETNAPROXEN 500 MG ORAL TABLETMedication Changes:New Prescription:PROZAC 10 MG ORAL CAPSULE-take one tablet by mouth daily Qty: 30[Capsule] Refills: 1 Method: ElectronicRemoved:MACROBID 100 MG ORAL CAPSULE-Take 1 capsule po BID Qty: 14[Capsule] Refills: 0Allergies:No Known Allergies (updated 01/20/2020) Orders:Telepsychiatry Consult [CPT-72999] Adult - Ofc Vst, EST, Level III [CPT- 48670] Follow-Up Return to clinic: 4-6 weeks for follow up. Clinical Visit Summary CompletedMedications:PROZAC 10 MG ORAL CAPSULE (FLUOXETINE HCL) take one tablet by mouth daily #30[Capsule] x 1 Route:ORAL Entered and Authorized by: Karla MCMULLEN Method used: Electronically to [facility] ([facility]) [address] [place] [address] Note to Pharmacy: Route: ORAL; Indications: ANXIETY DEPRESSION RxID: [id number] MACROBID 100 MG ORAL CAPSULE (NITROFURANTOIN MONOHYD MACRO) Take 1 capsule po BID #14[Capsule] x 0 Route:ORAL Entered by: Makayla Dotson Authorized by: Thony LOCKE Method used: Electronically to [facility] (retail) [address] [place] [address] RxID: [id number] signed by Karla MCMULLEN on 01/29/2020 at 8:24 AM Name Value Range Interpretation Code Description Data Rubi rce(s) Supporting Document(s) ID Date Data Source [id number] 01/20/2020 10:30:00 AM EDT [facility] Name Value Range Interpretation Code Description Data Rubi rce(s) Supporting Document(s) URINECULTRTN EXTD BRD SPCTRM BETA LACTAMASE IV NE GATIVE FOR ESBL [facility] ID Date Data Source [id number] 01/20/2020 10:14:36 AM EDT [facility] [...] pH: 5.5 5.0-6.5 Blood: negative Negative Specific Erick: 1.030 1.020>=1.030 Ketone: negative Negative Bilirubin: negative Negative Glucose: negative NegativeAretha Chairez LPN, January 20, 2020 10:15 AMInitial Intake Information From: patientRoom #: 1Infectious Disease / Travel ScreeningRecent travel for you or any close contacts? NoHave you had any close contact with anyone diagnosed with or under investigation for COVID-19 (coronavirus)? NoFever? NoRespiratory symp toms: cough, cold, congestion, shortness of breath, difficulty breathing? NoLoss of smell? NoLoss of taste? NoDetails: got back from [place] 3 weeks agoSmoking, Tobacco, Vaping or Smoke [...] during this visit, including review of any smxp-bii-djsysmy medications, herbal therapies, and/or supplements.Allergy ReviewAllergy List [...] & Plan Problems:Added: Acute cystitis without hematuria (PEC84-L57.00) Assessment: Instructions: Urine was sent for culture [...] on antibiotics.Increased frequency of urination (ICD- 788.41) (CUK16-Q18.0) Assessment: Instructions: As above.Assessed:Acute low back pain (ICD-724.2) (PPA59-N88.5) Assessment: Instructions: Not likely to be kidney [...] and/or familyMedications:MACROBID 100 MG ORAL CAPSULEVITAMIN D3 76780 UNIT ORAL TABLETNAPROXEN 500 MG ORAL TABLETMedication Changes:New Prescription:MACROBID 100 MG ORAL CAPSULE-Take 1 capsule po BID Qty: 14[Capsule] Refills: 0 Method: ElectronicAllergies:No Known Allergies (updated 01/20/2020) Orders:Urinalysis-automated [CPT-64953] Urine Culture & Sensitivity [CPT-68547] Adult - Ofc Vst, EST, Level III [CPT-31901] Follow-Up Return to clinic: as needed Clinical Visit Summary CompletedMedications:MACROBID 100 MG ORAL CAPSULE (NITROFURANTOIN MONOHYD MACRO) Take 1 capsule po BID #14[Capsule] x 0 Route:ORAL Entered and Authorized by: Thony LOCKE Method used: Electronically to [facility] [id number]* ([email or web address]) [address] [place] [address] Fax: Note to Pharmacy: Route: ORAL; Indications: ACUTE CYSTITIS WITHOUT HEMATURIA RxID: [id number] signed by Thony LOCKE on 01/26/2020 at 3:13 PM Name Value Range Interpretation Code Description Data Rubi rce(s) Supporting Document(s) ID Date Data Source [id number] 01/20/2020 10:14:36 AM EDT [facility] Name Value Range Interpretation Code Description Data Rubi rce(s) Supporting Document(s) APPEARANCE U cloudy [facility] BILIRUBIN UR negative [facility] BLOOD UR DIP negative [facility] GLUCOSE, URN negative [facility] KETONES URN negative [facility] NITRITE URN positive [facility] PH URINE 5.5 [facility] PROTEIN, URN negative [facility] SPEC GR URIN 1.030 [facility] UA COLOR straw [facility] UROBILINOGEN 3.5 [facility] WBC DIPSTK U 1+ [facility] ID Date Data Source [id number] 01/20/2020 10:14:36 AM EDT [facility] Name Value Range Interpretation Code Description Data Rubi rce(s) Supporting Document(s) APPEARANCE U cloudy [facility] BILIRUBIN UR negative [facility] BLOOD UR DIP negative [facility] GLUCOSE, URN negative [facility] KETONES URN negative [facility] NITRITE URN positive [facility] PH URINE 5.5 [facility] PROTEIN, URN negative [facility] SPEC GR URIN 1.030 [facility] UA COLOR straw [facility] UROBILINOGEN 3.5 [facility] WBC DIPSTK U 1+ [facility] ID Date Data Source [id number] 01/20/2020 10:14:36 AM EDT [facility] Name Value Range Interpretation Code Description Data Rubi rce(s) Supporting Document(s) APPEARANCE U cloudy [facility] BILIRUBIN UR negative [facility] BLOOD UR DIP negative [facility] GLUCOSE, URN negative [facility] KETONES URN negative [facility] NITRITE URN positive [facility] PH URINE 5.5 [facility] PROTEIN, URN negative [facility] SPEC GR URIN 1.030 [facility] UA COLOR straw [facility] UROBILINOGEN 3.5 [facility] WBC DIPSTK U 1+ [facility] ID Date Data Source [id number] 09/16/2019 03:37:08 PM EST [facility] [...] wellnessHave you seen a dentist? Yes - COUNT INCLUDES THE [facility] in september Rate Your HealthIn general, would [...] medication for a non-medical reason? 0Performed by: Geneiveve Hunter LPN, September 16, 2019 3:44 PMPatient [...] during this visit, including review of any fbpf-ntm-panalws medications, herbal therapies, and/or supplements.Allergy ReviewAllergy List was reviewed and/or updated during this visit.Adult Preventive CareLabs/Meds/Other Counseling-Nutrition and Physical Activity:BMI Interpretation: Obese (09/16/2019) Counseling: Done (09/16/2019) Physical Activity: Done (09/16/2019)Cancer Screening Pap Smear/HPV TestingReviewed: Previous Comments: done at [facility] and [facility] [place] (08/05/2019)Today's Comments: done july of 2019Review of [...] Plan Problems:Added: Acute low back pain (ICD-724.2) (XDD87-N71.5) Assessment: Instructions: We have sent a prescription to your pharmacy today. Please take medication as prescribed. Please report any major side effects. may take warm baths or showers to relax muscles. please try to change your position slowly. Please try to avoid stenous activities.vitamin D deficiency (ICD-268.9) (JIM40-X73.9) Assessment: Instructions: We have sent a prescription to your pharmacy today. Please take medication as prescribed. Please report any major side effectsAssessed:Obesity, unspecified (VRG36-G67.9) Assessment: Instructions: Please continue lifestyle changes to include healthy diet and physical activities. Please try to limit sugars and carbohydrates in your diet. Please try to avoid processed foods.Anxiety depression (ICD-300.09) (ICD10- F41.8) Assessment: Instructions: We have made a referral for you today. We will contact you to set this upHealth Screening (ICD-V70.0) (SCN20-K04.9) Assessment: Instructions: We have reviewed your lab results with you today.Assessment not Saved vitamin D deficiency (XLK71-T15.9): Patient Instructions/Care Plan: Obesity- unspecified: Please continue [...] in collaboration with patient and/or familyMedications:VITAMIN D3 07504 UNIT ORAL TABLETNAPROXEN 500 MG ORAL TABLETMedication Changes:New Prescription:NAPROXEN 500 MG ORAL TABLET-take one tablet by mouth two times daily as needed. Qty: 60[Tablet] Refills: 2 Method: ElectronicVITAMIN D3 23426 UNIT ORAL TABLET-1 po q wk for 12 wks, then change to 1000 unit tablet daily thereafter Qty: 12[Tablet] Refills: 0 Method: ElectronicAllergies:No Known Allergies (updated 08/05/2019) Orders:Mental Health Consult [CPT-03491] Adult - Ofc Vst, EST, Level IV [CPT-85552] Follow-Up Return to clinic: 3 months for follow up. Clinical Visit Summary CompletedMedications:VITAMIN D3 35643 UNIT ORAL TABLET (CHOLECALCIFEROL) 1 po q wk for 12 wks, then change to 1000 unit tablet daily thereafter #12[Tablet] x 0 Route:ORAL Entered and Authorized by: Karla MCMULLEN Method used: Electronically to [facility] [id number]* (retail) [address] [place] [address] Note to Pharmacy: Route: ORAL; Indications: VITAMIN D DEFICIENCY RxID: [id number] 500 MG ORAL TABLET (NAPROXEN) take one tablet by mouth two times daily as needed. #60[Tablet] x 2 Route:ORAL Entered and Authorized by: Karla MCMULLEN Method used: Electronically to [facility] [id number]* ([email or web address]) [address] [place] [address] Note to Pharmacy: Route: ORAL; Indications: ACUTE LOW BACK PAIN RxID: [id number]] Name Value Range Interpretation Code Description Data Rubi rce(s) Supporting Document(s) ID Date Data Source [id number] 08/19/2019 09:32:01 AM EST [facility] In-House Blood TestsDate/Time Colle cted: August 19, 2019 9:32 AMTest Result Reference Range Normal ValueComments: blood draw done in offcie done in the right ac tolerated well Bunny Napoles MA, August 19, 2019 9:32 AMAssessment & Plan Orders:49131-Map Vst-Est Level I [CPT-21841] 24984 - Venipuncture [CPT-18657] Electronically signed by Karla MCMULLEN on 06/2020 at 1:13 PM Name Value Range Interpretation Code Description Data Rubi rce(s) Supporting Document(s) ID Date Data Source [id number] 08/19/2019 09:25:00 AM [facility] Name Value Range Interpretation Code Description Data Rubi rce(s) Supporting Document(s) HGBA1C 5.5 % N [facility] ID Date Data Source [id number] 08/19/2019 09:25:00 AM [facility] Name Value Range Interpretation Code Description Data Rubi rce(s) Supporting Document(s) HCT 41.3 % 36.0-47.0 N [facility] HGB 13.0 g/dL 12.0-15.5 N [facility] MCH 31.5 G/DL pg 32.0-36.5 L [facility] MCHC 27.3 PG % 27.0-33.0 N [facility] PLATELETS 229 10 10*3/mm3 150-450 N [facility] RBC 4.76 10 10*6/mm3 4.00-5.40 [facility] RDW 14.3 % 11.5-14.5 [facility] WBC TOTAL 5.8 4.0-10.0 N [facility] ID Date Data Source [id number] 08/19/2019 09:25:00 AM [facility] Name Value Range Interpretation Code Description Data Rubi rce(s) Supporting Document(s) BG FASTING 92 mg/dL 70-100 N [facility] T4, FREE 1.07 ng/dL 0.76-1.46 N [facility] TSH 2.810 microintl units/mL 0.358-3.740 N [facility] VIT D25 TOT 16.2 ng/mL 30.0-100.0 L [facility] ID Date Data Source [id number] 08/05/2019 01:48:30 PM [facility] Measurements & CalculationsHeight: 69 inches (5 ft. [...] of ? NoComments: irregular- [facility] HistorySince your last office visit...Have you [...] or Preferred Language: EnglishFamily and Home Address: [address] [place] [id number] What is your housing situation today? I have housing Are you worried about losing your housing? NoMoney and Resources What is the highest level of school that you have finished? some college Employed? 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 Denies Insecurity: food, utilities, clothing, child development instructor, phone, legal services, otherIn the past year, [...] 2 nights in a row in a [place], [facility], nursing home center or juvenile correctional facility? No Has [...] 3 1/2 years, spouse, moved here from [place]. Pt states only just OBGYN while . [...] [facility]. Pt denies alcoholism. Pt denies illicit drug use. HPI performed by: Karla MCMULLEN, August 05, 2019 2:26 PMTransitions of Care InboundProblem ReviewProblem List was reviewed and/or updated during this visit.Medication Reconciliation & ReviewMedication List was reviewed and/or updated during this visit, including review of any rget-bse-hjqixfx medications, herbal therapies, and/or supplements. Patient has no known medications.Allergy ReviewAllergy List was reviewed and/or updated during this visit. Patient has no known allergies.Adult Preventive CareProvider Calculated and Reviewed all Clinical Protocols for patient today. Labs/Meds/Other Counseling-Nutrition and Physical Activity:BMI Interpretation: Obese (08/05/2019) Counseling: Done (08/05/2019) Physical Activity: Done (08/05/2019)Cancer Screening Pap Smear/HPV TestingReviewed: Today's Comments: [facility] [place] General: Complains of headache. Denies [...] is? GoodAssessment & Plan Problems:Added: Endocrine/metabolic screening (ELV47-S42.29) Assessment: Instructions: We have ordered labs for saavedra today. Please reurn prior to your next visit to have labs drawn. Please fast for 8-10 hours prior.Anxiety depression (ICD-300.09) (NDC33-N44.8) Assessment: Instructions: We have ordered labs for you today. Please retuurn prior to your next visit to have labs drawn. Please continue to monitor report and avoid triggers causing increased anxiety and or depression.Headache (ICD-784.0) (LAW95-G45) Assessment: Instructions: labs ordered today. Please try to monitor and avoid triggers. please try to maintain good nutrition and adequate hydration.Health Screening (ICD-V70.0) (OQV68-H83.9) Assessment: Instructions: Fasting labs ordered today.Obesity, unspecified (UVD07-V94.9) Assessment: Instructions: Please continue lifestyle changes to include healthy diet and physical activities. Please try to limit sugars and carbohydrates in your diet. Please try to avoid processed foods.Anxiety depression (ICD-300.09) (FRX21-L83.8) Assessment: Will get labs done prior to [...] Known Allergies (updated 08/05/2019) Orders:COMP METABOLIC PANEL [CPT-85849] CBC W/DIFF [CPT-23006] HgBA1c [CPT-08300] LIPID PANEL [CPT- 29286] TSH [CPT-72307] T-4 free [CPT-75604] Vitamin D 250H Unspecified [CPT- 36824] URINALYSIS [CPT-18666] VITAMIN B-12 [CPT-70994] Folate (Folic Acid Serum) [CPT-97364] Adult - Ofc Vst, NEW, Level III [CPT-73772] Follow-Up Return to clinic: 4-6 weeks for follow up. Clinical Visit Summary CompletedVaccines Administered/Entered:Vaccination Group: H1N1 InfluenzaSeries: 1 NOT GIVENVaccination: Influenza A (H1N1) Monoval PF Intramuscular SuspensionReason Not Given: Patient decisionEntered Date: 08/05/2019 12:00 AMComments: pt states she had [facility] for workEntered by: Cat Ybarra MA Name Value Range Interpretation Code Description Data Rubi rce(s) Supporting Document(s) Procedure Vital Signs ID Date Data Source UNK Name Value Range Interpretation Code Description Data Source(s) Body weight 3426.08 [oz_av] 3426.08 [oz_av] ATH SABA ([facility]) Systolic blood pressure 98 mm[Hg] 98 mm[Hg] A THENA ([facility]) Body height 69 [in_i] 69 [in_i] EL ([facility]) Diastolic blood pressure 64 mm[Hg] 64 mm[Hg] EL ([facility]) Body weight 3417.6 [oz_av] 3417.6 [oz_av] ATHEN A ([facility]) Systolic blood pressure 115 mm[Hg] 115 mm[Hg] A THENA ([facility]) Body height 69 [in_i] 69 [in_i] EL ([facility]) Diastolic blood pressure 72 mm[Hg] 72 mm[Hg] EL ([facility]) Body weight 3414.08 [oz_av] 3414.08 [oz_av] ATH SABA ([facility]) Systolic blood pressure 94 mm[Hg] 94 mm[Hg] A THENA ([facility]) Body height 69 [in_i] 69 [in_i] EL ([facility]) Diastolic blood pressure 66 mm[Hg] 66 mm[Hg] EL ([facility]) Body weight 3364 [oz_av] 3364 [oz_av] EL ([facility]) Systolic blood pressure 112 mm[Hg] 112 mm[Hg] A THENA ([facility]) Body height 69 [in_i] 69 [in_i] EL ([facility]) Diastolic blood pressure 78 mm[Hg] 78 mm[Hg] EL ([facility]) Body weight 3376 [oz_av] 3376 [oz_av] EL ([facility]) Systolic blood pressure 120 mm[Hg] 120 mm[Hg] A THENA ([facility]) Body height 69 [in_i] 69 [in_i] EL ([facility]) Diastolic blood pressure 82 mm[Hg] 82 mm[Hg] EL ([facility]) Diastolic blood pressure 80 mm[Hg] 80 mm[Hg] eCW1 ([facility]) Systolic blood pressure 112 mm[Hg] 112 mm[Hg] e CW1 ([facility]) Body mass index (BMI) [Ratio] 31.37 kg/m2 31.37 kg/m2 eCW1 ([facility]) Body height 68.5 [in_us] 68.5 [in_us] eCW1 (On license of [facility]) Body weight Measured 209.4 [lb_av] 209.4 [lb_av ] [facility] ([facility])
[2020-09-08] MEDS ORDERED: ACETAMINOPHEN 500 MG TAB PO ONE (18:55)
--- NOTE | 2020-09-08 19:02 | REP ---
INDICATION: pain since son fell onto leg. COMPARISON: None. TECHNIQUE: Four views FINDINGS: Shaft of the tibia and fibula were grossly intact. Vascular groove is seen as the lucency on the PA view in the mid shaft of the tibia and is in anatomic normal finding. The knee and ankle or without gross fracture or focal lesion. No joint space narrowing in the medial or lateral compartment at the knee. No heel spurs. I do not see a radiopaque foreign body, avulsion fracture or other acute finding. Some minor swelling pretibial region distally to the anterior margin of the ankle. IMPRESSION: 1. No visible or displaced fracture, avulsion, disruption of the ankle mortise joint or acute abnormalities about the knee. No radiopaque foreign body. Mild pretibial swelling distally on the lateral view of the lower pretibial region and ankle. <Electronically signed by Juventino Renee > 09/08/20 [id number]
[2020-09-08 19:34] VITALS: BP 126/83
== END 2020-09-08 19:37 | disposition home or self-care (01) ==
LOC: M ED 17:01
DX: S80.11XA Contusion of right lower leg, initial encounter (principal); X50.1XXA Overexertion from prolonged static or awkward postures, initial encounter; Y92.099 Unspecified place in other non-institutional residence as the place of occurrence of the external cause; Y93.9 Activity, unspecified; Y99.9 Unspecified external cause status

== ENCOUNTER → 2020-09-13 | Outpatient (CLI) | payer OTHER ==
[~2020-09-13] MED LIST changes: +FLUO20CA22; +JUNE1.5T
--- NOTE | 2020-09-13 17:04 | REP ---
INDICATION: IRREGULAR MENSTRUAL BLEEDING COMPARISON: None TECHNIQUE: Transabdominal pelvic ultrasound followed by transvaginal examination for better evaluation of the endometrium and adnexa with color Doppler evaluation of the ovaries. FINDINGS: Bladder is unremarkable and measures 5.8 x 4.5 x 4.6 cm. Normal anteverted uterus measures 8.9 x 4.5 x 5.8 cm. The endometrial complex measures 8 mm thickness. No discrete uterine or endometrial abnormalities are appreciated. Bilateral ovaries are normal in appearance and vascularity without evidence for torsion. Right ovary measures 2.6 x 3.1 x 3.7 cm; R I = 0.55. Left ovary measures 4.8 x 1.4 x 2.2 cm; R I = 0.50. No pelvic fluid or adnexal mass lesion IMPRESSION: Normal pelvic ultrasound. <Electronically signed by Donny Olivia > 09/13/20 [id number]
== END ==
LOC: M WHC 16:13
PROVIDERS: ATTEND Obstetrics & Gynecology
DX: N92.6 Irregular menstruation, unspecified (principal)

== ENCOUNTER → 2020-12-05 | Outpatient (CLI) | payer OTHER ==
[~2020-12-05] MED LIST changes: +FLUO10CA16; +HYDR50TA70
== END ==
LOC: M LABSMTC 08:10
PROVIDERS: ATTEND Anesthesiology
DX: Z01.812 Encounter for preprocedural laboratory examination (principal); Z11.52 Encounter for screening for COVID-19

== ENCOUNTER 2020-12-10 06:01 | Day surgery (SDC) | payer OTHER ==
[~2020-12-10] VITALS: Ht 175.3 cm; Wt 106.6 kg
[~2020-12-10 06:01] MED LIST changes: +LIDOCAINE 1% MDV 20ML VIAL SQ PRN; +LR 1,000 ML IV ONE
[2020-12-10 06:38] LABS: HEMOGLOBIN 13.1 g/dl (12.0-15.5)
[2020-12-10] MEDS ORDERED: NO ITAB PO (06:41)
[2020-12-10 07:01] LABS: HCG, SERUM QUALITATIVE NEGATIVE (NEGATIVE)
[2020-12-10] MEDS ORDERED: MIDAZOLAM INJ 2MG/2ML VIAL (J2250 PER 1MG) As Ordered ONE (07:03)
[2020-12-10] MEDS ORDERED: fentaNYL 100 MCG/2 ML INJECTION (J3010) As Ordered ONE ×2 (07:05→08:19)
[2020-12-10] MEDS ORDERED: ROCURONIUM BROMIDE 50 MG/5 ML VIAL As Ordered ONE (07:07)
[2020-12-10] MEDS ORDERED: LIDOCAINE 2% 100MG/5ML SDV (FOR ANES.) As Ordered ONE (07:08)
[2020-12-10] MEDS ORDERED: BUPIVACAINE HCL 0.25% 30ML VIAL As Ordered ONE (07:13)
[2020-12-10] MEDS ORDERED: ONDANSETRON 4MG/2ML VIAL As Ordered ONE ×2 (07:48→09:25)
[2020-12-10] MEDS ORDERED: METOCLOPRAMIDE INJ 10MG/2ML VIAL (J2765 PER 1) As Ordered ONE (07:48)
[2020-12-10] MEDS ORDERED: dexameTHASONE 4 MG/ML 1ML VIAL (J1100 PER 1MG) As Ordered ONE (07:48)
[2020-12-10] MEDS ORDERED: ACETAMINOPHEN 1000MG 100ML IV BTL (OFIRMEV) (J0131 PER 10MG) As Ordered ONE (08:08)
[2020-12-10] MEDS ORDERED: KETOROLAC 60MG 2ML VIAL As Ordered ONE (08:09)
[2020-12-10] MEDS ORDERED: SUGAMMADEX SODIUM 500 MG/5 ML VIAL (BRIDION) As Ordered ONE (08:42)
[2020-12-10] MEDS ORDERED: propofoL 200 MG/20 ML VIAL As Ordered ONE (08:49)
[2020-12-10] MEDS ORDERED: MEPERIDINE INJ 25 MG/ML VIAL (J2175) IV PRN (09:30)
[2020-12-10] MEDS ORDERED: LR 1,000 ML IV SCH (09:30)
[2020-12-10] MEDS ORDERED: fentaNYL 100 MCG/2 ML INJECTION (J3010) IV PRN (09:30)
[2020-12-10] MEDS ORDERED: PERCOCET 5MG/325MG TAB PO PRN (09:30)
[2020-12-10] MEDS ORDERED: ONDANSETRON 4MG/2ML VIAL IV PRN (09:30)
--- NOTE | 2020-12-10 10:54 | RO ---
OPERATIVE NOTE DATE OF OPERATION: 12/10/2020 PREOPERATIVE DIAGNOSIS: Pelvic pain, dyspareunia, dysmenorrhea. POSTOPERATIVE DIAGNOSIS: Pelvic pain, dyspareunia, dysmenorrhea, extensive deep infiltrative endometriosis (stage 3) OPERATION PERFORMED: Diagnostic laparoscopy with biopsy of the peritoneum. SURGEON: Trish Wooten MD LABOR TRAINING MANAGER: Albert Hall DO ANESTHESIA: GETA INDICATION FOR OPERATION: Angie is a 30-year-old, G5, P 4-0-1-4, with history of chronic pelvic pain, dyspareunia and dysmenorrhea, desiring definitive diagnosis for her pelvic pain and possible treatment. MATERIAL FORWARDED TO THE LAB: Peritoneal biopsy from the posterior cul-de-sac. DESCRIPTION OF FINDINGS: Laparoscopic findings included a normal appearing liver edge. The uterus had a fundal fibroid. The right fallopian tube and ovary were fairly normal in appearance but the left fallopian tube and ovary were affixed to the pelvic sidewall. The appendix was not able to be visualized. It was either retrocecal or fixed to the sidewall. There was deep infiltrative endometriosis noted in the anterior cul-de-sac and in the posterior cul-de-sac. There was a peritoneal window on the left side of the posterior cul-de-sac and we obtained a peritoneal biopsy next to that peritoneal window. There was also endometriosis noted over the large bowel. INFECTION CLASSIFICATION: 2. ESTIMATED BLOOD LOSS: 5 mL URINE OUTPUT: 200 mL of clear yellow urine. IV FLUIDS: 900 mL of lactated Ringer's. DESCRIPTION OF OPERATION: After obtaining informed consent, the patient was taken to the operating room. General endotracheal anesthesia was established. She was placed in low lithotomy position. She was prepped and draped in the usual sterile fashion and placed in Trendelenburg position. A Mancuso catheter was placed. A bivalve speculum was placed in the vagina and visualization of the cervix was obtained. A [employer] uterine manipulator was placed through the cervix into the uterus and the bivalve speculum was removed. The patient was taken out of Trendelenburg position. A 5 mm incision was made in the infraumbilical fold beneath the subcutaneous tissue. The lower abdominal wall was manually grabbed and lifted up with aid of towel clamps and an OptiView trocar was placed at a 90 degree angle. Laparoscope was advanced through the port and intra-abdominal placement was confirmed without injury noted below the point of entry. Continuous flow carbon dioxide began to establish pneumoperitoneum at 15 mmHg pressure. At that point, a basic survey was done and the liver edge was normal in appearance. The gallbladder was surgically absent. It was difficult to view the pelvic organs because she has a very retroverted uterus so at that point, we made two other incisions both 5 mm in size on the left side of the abdomen, one in the left lower quadrant, one in the left upper quadrant, anesthetizing the sites with 1/4% Marcaine prior to making the incisions and then the 5 mm trocars were placed under direct visualization. We then conducted a thorough pelvic and abdominal survey beginning at the anterior cul-de-sac and anterior portion of the uterus. There was deep infiltrative endometriosis noted in the anterior cul-de-sac with a lot of irregularity of the tissue and nodularity. The uterus was noted to have a fundal fibroid. The left fallopian tube and ovary were affixed cephalad to the pelvic sidewall and the right fallopian tube and ovary were fairly normal in appearance. There seemed to be some slight endometriosis over the adnexa but the tube itself looked healthy and the fallopian tube was not clubbed. The posterior cul-de-sac was also noted to have deep infiltrative endometriosis with a peritoneal window on the patient's left side in the cul-de-sac. We did take a biopsy using monopolar scissors, tenting up the tissue with a grasper and excising a small 1/2 cm piece of peritoneum. We used the monopolar scissors to cauterize very carefully at that peritoneal edge that was bleeding and then we had complete hemostasis at that point. The tissue was sent to pathology. At that point, we also noted endometriosis over the large bowel and the appendix was impossible to visualize despite looking for it. Either it was very retrocecal or it was fixed to the pelvic sidewall which would not be surprising in light of all of the extensive endometriosis. At that point, we terminated the procedure and the ports were removed under direct visualization, observed to be hemostatic. Pneumoperitoneum was released prior to removal of the umbilical port. The incisions were reapproximated with 4-0 Monocryl and Dermabond. The uterine manipulator was removed from the vagina with hemostasis noted. This patient also had a small 1/2 cm inclusion cyst between the clitoris and the urethra and I used Metzenbaum scissors to very carefully incise the inclusion cyst just until the thick, clear contents of the cyst emanated from the cyst and I used Ray-Tecs to push on the cyst and remove all of the substance from within it. There was no bleeding at all from that area. The Amncuso catheter was removed at the end of the procedure. Inspection of vagina revealed nothing retained. The patient was returned to supine position. All counts were correct x2. She tolerated the procedure well and was awakened from general anesthesia and taken to the recovery room in stable condition. KODAK
[2020-12-10] MEDS ORDERED: IBUP80TA PO (12:09)
[2020-12-10] MEDS ORDERED: PERC5TAB12 PO (12:09)
[2020-12-10] MEDS ORDERED: COLA100C5 PO (12:09)
[2020-12-10 12:30] VITALS: BP 112/62
== END 2020-12-10 12:51 | disposition home or self-care (01) ==
LOC: M SDC 06:01
PROVIDERS: ATTEND Obstetrics & Gynecology
DX: R10.2 Pelvic and perineal pain (principal); N94.10 Unspecified dyspareunia; N94.6 Dysmenorrhea, unspecified; N80.9 Endometriosis, unspecified; F43.10 Post-traumatic stress disorder, unspecified; F41.9 Anxiety disorder, unspecified; Z79.899 Other long term (current) drug therapy
CPT/HCPCS: 36415; 49321; 84703; 85014; 85018; 86850; 86900; 86901; 88305; J0131; J1100; J1885; J2250; J2405; J2765; J3010

== ENCOUNTER → 2021-04-29 | Outpatient (CLI) | payer OTHER ==
[~2021-04-29] MED LIST changes: +COLA100C5 PO; +IBUP80TA PO; -LIDOCAINE 1% MDV 20ML VIAL SQ PRN; -LR 1,000 ML IV ONE; +NO ITAB PO; +PERC5TAB12 PO
== END ==
LOC: M LABSMTC 11:14
PROVIDERS: ATTEND Anesthesiology
DX: Z01.812 Encounter for preprocedural laboratory examination (principal); Z20.822 Contact with and (suspected) exposure to COVID-19

== ENCOUNTER 2021-05-04 06:09 | Day surgery (SDC) | payer OTHER ==
[~2021-05-04] VITALS: Ht 175.3 cm; Wt 107.0 kg
[~2021-05-04 06:09] MED LIST changes: +LIDOCAINE 1% MDV 20ML VIAL SQ PRN; +LR 1,000 ML IV ONE; +ceFAZolin SOD 2 GM in IV 1 EA IV ONE
--- OUTSIDE RECORDS SUMMARY | 2021-05-04 06:12 | CCD | Continuity of Care Document ---
Author Author Angie YAP Organization Unknown Address [address] [place] [address] [place] [address] Phone [phone] Care Team Providers Care Manager Battery Name Role Phone [facility] [phone] Problems Description No Information Available Social History Type Date Description Comments Sex Unknown ETOH Use Denies alcohol use Tobacco Use Start: Unknown The patient has never vaped Tobacco Use Start: Unknown Patient has never smoked Smoking Status Reviewed: 01/23/21 Patient has never smoked Allergies, Adverse Reactions, Alerts Description No Known Drug Allergies Medications Active Medications SIG Qnty Indications Ordering Provide r Date Control Pill Unknown Tylenol 12pm today Unknown History Medications Medrol 4mg TBPK one dose pack as directed for 6 days 21units S16.1xxA Wayne Chairez JR., M.D. 05/2021 - 01/29/2021 Ibuprofen 800mg Tablets 1 tablet by mouth three times a day as needed for pain 60tabs S16.1xxA Col svetlana Chairez JR., M.D. 01/23/2021 - 02/02/2021 Tizanidine HCL 4mg Tablets take 1 tab by mouth every night at bedtime as needed for muscle spasms 10tabs S16 .1xxA Wayne Chairez JR., M.D. 01/23/2021 - 02/02/2021 Medications Administered in Office Medication SIG Qnty Indications Ordering Provider Date Decadron(Per 1MG)Dexamethasone Sodium Ph osphate Injection Injection Shannon cabrales NP 01/23/2021 Immunizations Description No Information Available Vital Signs Date Vital Result Comment 01/23/2021 2:45pm BP Systolic 113 mmHg BP Diastolic 80 mmHg Heart Rate 83 /min Respiratory Rate 16 /min O2 % BldC Oximetry 98 % Body Temperature 97.1 F Weight 232.00 lb Height 69 inches 5'9" BMI (Body Mass Index) 34.3 kg/m2 Pain Level 8 Results Description No Information Available Procedures Date Code Description Status 01/23/2021 67370 Office/Outpatient New Low MDM 30 -44 Minutes Completed 01/23/2021 22377 Therapeutic, Prophylactic Or Bia gnostic Injection Subq/Im Completed 01/23/2021 87189 Therapeutic, Prophylactic Or Bia gnostic Injection Subq/Im Completed Medical Devices Description No Information Available Encounters Type Date Location Provider Dx Diagnosis Office Visit 01/23/2021 2:00p Main Office Shannon Wilson NP S16. 1xxA Strain of muscle, fascia and tendon at neck level, init Assessments Date Code Description Provider 01/23/2021 S16.1xxA Strain of muscle, fa scia and tendon at neck level, initial encounter Shannon Wilson NP Plan of Treatment No Information Available Functional Status Description No Information Available Mental Status Description No Information Available Referrals Description No Information Available
--- OUTSIDE RECORDS SUMMARY | 2021-05-04 06:12 | CCD ---
Author Author [facility] Organization [facility] Address Unknown Phone Unavailable Care Team Providers Care Health Care Recruiter Name Role Phone Albert Hall Unavailable PROBLEMS Type Condition ICD9-CM Code [id number] Code Onset Dates Condition S tatus W/U Status Risk SNOMED Code Notes Problem Carpal tunnel syndrome of left wrist G56.02 Act violeta confirmed 650315605477290 Problem Irregular menstrual bleeding N92.6 Active confirme d 23736575 Problem Dysmenorrhea N94.6 Active confirmed 7302835 00 Problem Endometriosis determined by laparoscopy N80.9 Active confirmed 901162560 Problem Abnormal uterine bleeding N93.9 Active confirmed 88761797691758 Problem Obesity E66.9 Active confirmed 476513434 Problem PCOS (polycystic ovarian syndrome) E28.2 Activ e confirmed 78225970 Problem Dyspareunia due to non-psychogenic cause in female N94.10 Active confirmed 49409972 Problem Dyspareunia due to medical condition in female N94 .19 Active confirmed 43548296 ALLERGIES No Known Allergies ENCOUNTERS from 1989 to 2021-04-07 Encounter Location Date Provider Diagnosis [facility] [address] [place] [address] [place] [address] Mar, Albert Hall IMMUNIZATIONS No Information SOCIAL HISTORY Tobacco Use: Social History Observation Description Date Details (start date - stop date) Never Smoker Sex Assigned At : Social History Observation Description Sex Assigned At Unknown Alcohol Screening: Question Answer Notes Did you have a drink containing alcohol in the past year? No Points 0 Interpretation Negative Tobacco Use: Question Answer Notes Are you a: never smoker REASON FOR REFERRAL No Information VITAL SIGNS No information MEDICATIONS Medication SIG (Take, Route, Frequency, Duration) Notes Start Da te End Date Status busPIRone HCl Not-Taking PROzac 10 MG 1 capsule Orally Once a day Active hydrOXYzine HCl 50 MG 1 tablet as needed Orally every 6 hrs Active Not-Taking Loestrin Fe 1.5/30 1.5-30 MG-MCG 1 tablet Orally Once a day for 28 day(s) Aug, Active PROCEDURES No Information RESULTS No Results REASON FOR VISIT surgery letter MEDICAL (GENERAL) HISTORY Type Description Date Medical History anxiety Medical History depression Surgical History LEEP Surgical History cholecystectomy Surgical History tonsillectomy Surgical History adenoidectomy Surgical History laparoscopy Hospitalization History childbirth Goals Section No Information Health Concerns No Information MEDICAL EQUIPMENT No Information MENTAL STATUS No Information FUNCTIONAL STATUS No Information ASSESSMENTS No Information PLAN OF TREATMENT Next Appt Details Provider Name:Albert Hall, 01:20:00 PM, [address] [place] [address], [place], [place], [address] [place] [address], [address] [place] [address] Provider Name:Albert Hall, 07:30:00 AM, [address] [place] [address], [place], [place], [address] [place] [address], [address] [place] [address] Provider Name:Albert Hall, 01:20:00 PM, [address] [place] [address], [place], [place], [address] [place] [address], Provider Name:Albert Hall, 08:20:00 AM, [address] [place] [address], [place], [place], [address] [place] [address], [address] [place] [address] Insurance Providers Payer Name Payer Address Payer Phone Insured Name Patient Relati onship to Insured Coverage Start Date Coverage End Date [place] [phone] KIP WARREN
--- OUTSIDE RECORDS SUMMARY | 2021-05-04 06:12 | CCD ---
Author Author [facility] Organization [facility] Address Unknown Phone Unavailable Care Team Providers Care Field Education Director Name Role Phone Albert Hall Unavailable PROBLEMS Type Condition ICD9-CM Code [id number] Code Onset Dates Condition S tatus W/U Status Risk SNOMED Code Notes Problem Carpal tunnel syndrome of left wrist G56.02 Act violeta confirmed 886850551122721 Problem Irregular menstrual bleeding N92.6 Active confirme d 52185862 Problem Dysmenorrhea N94.6 Active confirmed 4760910 00 Problem Endometriosis determined by laparoscopy N80.9 Active confirmed 965195870 Problem Abnormal uterine bleeding N93.9 Active confirmed 94995670791403 Problem Obesity E66.9 Active confirmed 795174575 Problem PCOS (polycystic ovarian syndrome) E28.2 Activ e confirmed 20740782 Problem Dyspareunia due to non-psychogenic cause in female N94.10 Active confirmed 57897786 Problem Dyspareunia due to medical condition in female N94 .19 Active confirmed 58342982 ALLERGIES No Known Allergies ENCOUNTERS from 1989 to 2021-04-07 Encounter Location Date Provider Diagnosis [facility] [address] [place] [address] [place] [address] Mar, Albert Hall IMMUNIZATIONS No Information SOCIAL [...] Information RESULTS No Results REASON FOR VISIT Update Demographics - Additional Info MEDICAL (GENERAL) HISTORY Type Description Date Medical [...] Appt Details Provider Name:Albert Hall, 01:20:00 PM, [address] [place] [address], [place], [place], [address] [place] [address], [address] [place] [address] Provider Name:Albert Hall, 07:30:00 AM, [address] [place] [address], [place], [place], [address] [place] [address], [address] [place] [address] Provider Name:Albert Hall, 01:20:00 PM, [address] [place] [address], [place], [place], [address] [place] [address], Provider Name:Albert Hall, 08:20:00 AM, [address] [place] [address], [place], [place], [address] [place] [address], Insurance Providers Payer Name Payer Address Payer Phone Insured Name Patient Relati onship to Insured Coverage Start Date Coverage End Date [place] [phone] KIP WARREN
--- OUTSIDE RECORDS SUMMARY | 2021-05-04 06:12 | CCD | Continuity of Care Document ---
Author Author Angie YAP Organization Unknown Address [address] [place] [address] [place] [address] Phone [phone] Care Team Providers Care Tender Labor Name Role Phone [facility] [phone] Problems Description No Information Available Social History [...] Available Procedures Date Code Description Status 01/23/2021 28973 Office/Outpatient New Low MDM 30 -44 Minutes Completed 01/23/2021 91047 Therapeutic, Prophylactic Or Bia gnostic Injection Subq/Im Completed 01/23/2021 57835 Therapeutic, Prophylactic Or Bia gnostic Injection Subq/Im Completed Medical Devices Description No Information Available Encounters Type Date Location Provider Dx Diagnosis Office Visit 01/23/2021 2:00p Main Office Shannon Wilson NP S16. 1xxA Strain of muscle, fascia and tendon at neck level, init Assessments Date Code Description Provider 04/13/2021 Z20.828 Contact with and (sam spected) exposure to other viral communicable diseases Albert Yap, P.A. 01/23/2021 S16.1xxA Strain of muscle, fa scia and tendon at neck level, initial encounter Shannon Wilson NP Plan of Treatment No Information Available Functional Status Description No Information Available Mental Status Description No Information Available Referrals Description No Information Available
--- OUTSIDE RECORDS SUMMARY | 2021-05-04 06:12 | CCD ---
Author Author [facility] Organization [facility] Address Unknown Phone Unavailable Care Team Providers Care Hospital Unit Clerk Name Role Phone Albert Hall Unavailable PROBLEMS Type Condition ICD9-CM Code [id number] Code Onset Dates Condition S tatus W/U Status Risk SNOMED Code Notes Problem Carpal tunnel syndrome of left wrist G56.02 Act violeta confirmed 927290792173421 Problem Irregular menstrual bleeding N92.6 Active confirme d 19878692 Problem Dysmenorrhea N94.6 Active confirmed 1377955 00 Problem Endometriosis determined by laparoscopy N80.9 Active confirmed 426329831 Problem Abnormal uterine bleeding N93.9 Active confirmed 85632073166360 Problem Obesity E66.9 Active confirmed 234248329 Problem PCOS (polycystic ovarian syndrome) E28.2 Activ e confirmed 95670212 Problem Dyspareunia due to non-psychogenic cause in female N94.10 Active confirmed 66049442 Problem Dyspareunia due to medical condition in female N94 .19 Active confirmed 01013691 ALLERGIES No Known Allergies ENCOUNTERS from 1989 to 2021-02-08 Encounter Location Date Provider Diagnosis [facility] [phone] [place] [address] Jan, Albert Hall Endometriosis determ ined by laparoscopy N80.9 ; Abnormal uterine bleeding N93.9 and Chronic pelvic pain in female R10.2 IMMUNIZATIONS No Information SOCIAL HISTORY Tobacco Use: [...] REASON FOR REFERRAL No Information VITAL SIGNS Weight 235 lbs Jan, Weight-kg 106.59 kg Jan, Height 69 in Jan, BMI 34.7 kg/m2 Jan, Blood pressure systolic 108 mm Hg Jan, Blood pressure diastolic 78 mm Hg Jan, MEDICATIONS Medication SIG (Take, Route, Frequency, Duration) [...] Information RESULTS No Results REASON FOR VISIT DISCUSS HYSTER PER DR. SHAH MEDICAL (GENERAL) HISTORY Type Description Date Medical History anxiety Medical History depression Surgical History LEEP Surgical History cholecystectomy Surgical History tonsillectomy Surgical History adenoidectomy Surgical History laparoscopy Hospitalization History childbirth Goals Section No Information Health Concerns No Information MEDICAL EQUIPMENT No Information MENTAL STATUS No Information FUNCTIONAL STATUS No Information ASSESSMENTS Encounter Date Diagnosis Assessment Notes Treatment Notes Treatm ent Clinical Notes Jan, Endometriosis determined by laparoscopy (ICD-10 - N80.9) We had a long discussion regarding medical vs surgical management, and specifically surgical management since she is highly favoring hysterectomy. We discussed pros and cons of ovarian retention. She would like her left ovary removed if indicated / feasible. Risks of oophorectomy (unilateral and bilateral options) were reviewed. She will be tentatively scheduled for RA- TLH/LSO, cysto. Preop appt / exam date TBD Jan, Abnormal uterine bleeding (ICD-10 - N93.9) Jan, Chronic pelvic pain in female (ICD-10 - R10.2) PLAN OF TREATMENT Treatment Notes Assessment Notes Clinical Notes Endometriosis determined by laparoscopy We had a long discussion regarding medical vs surgical management, and specifically surgical management since she is highly favoring hysterectomy. We discussed pros and cons of ovarian retention. She would like her left ovary removed if indicated / feasible. Risks of oophorectomy (unilateral and bilateral options) were reviewed. She will be tentatively scheduled for RA-TLH/LSO, cysto. Preop appt / exam date TBD Next Appt Details TBD Reason: Insurance Providers Payer Name Payer Address Payer Phone Insured Name Patient Relati onship to Insured Coverage Start Date Coverage End Date [place] [phone] KIP WARREN
--- OUTSIDE RECORDS SUMMARY | 2021-05-04 06:12 | CCD ---
Author Author [facility] Organization [facility] Address Unknown Phone Unavailable Care Team Providers Care Licensed Mental Health Counselor Name Role Phone Albert Hall Unavailable PROBLEMS Type Condition ICD9-CM Code JFE49-YY Code Onset Dates Condition S tatus W/U Status Risk SNOMED Code Notes Problem Carpal tunnel syndrome of left wrist G56.02 Act violeta confirmed 166548453069921 Problem Irregular menstrual bleeding N92.6 Active confirme d 47614327 Problem Dysmenorrhea N94.6 Active confirmed 0001875 00 Problem Endometriosis determined by laparoscopy N80.9 Active confirmed 675889165 Problem Abnormal uterine bleeding N93.9 Active confirmed 28337805960145 Problem Obesity E66.9 Active confirmed 492822114 Problem PCOS (polycystic ovarian syndrome) E28.2 Activ e confirmed 68426462 Problem Dyspareunia due to non-psychogenic cause in female N94.10 Active confirmed 85431592 Problem Dyspareunia due to medical condition in female N94 .19 Active confirmed 69675551 ALLERGIES No Known Allergies ENCOUNTERS from 1989 to 2021-04-07 Encounter Location Date Provider Diagnosis [facility] [address] [place] [address] [place] [address] Mar, Albert Hall IMMUNIZATIONS No Information SOCIAL [...] Results REASON FOR VISIT Update Demographics - Personal Info MEDICAL (GENERAL) HISTORY Type Description Date [...] Appt Details Provider Name:Albert Hall, 01:20:00 PM, [address] [place] [address], [place], [place], [address] [place] [address], [address] [place] [address] Provider Name:Albert Hall, 07:30:00 AM, [address] [place] [address], [place], [place], [address] [place] [address], Provider Name:Albert Hall, 01:20:00 PM, [address] [place] [address], [place], [address] [place] [address], Provider Name:Albert Hall, 08:20:00 AM, [address] [place] [address], [place], [place], [address] [place] [address], Insurance Providers Payer Name Payer Address Payer Phone Insured Name Patient Relati onship to Insured Coverage Start Date Coverage End Date [place] [phone] KIP WARREN
--- OUTSIDE RECORDS SUMMARY | 2021-05-04 06:13 | CCD ---
Author Author [facility] Organization [facility] Address Unknown Phone Unavailable Care Team Providers Care Drug Safety Coordinator Name Role Phone Wilson, Shannon BINGO CASHIER Unavailable Unavailable Wilson, Shannon BINGO CASHIER Unavailable Unavailable Wilson, Shannon BINGO CASHIER Unavailable Unavailable Wilson, Shannon BINGO CASHIER Unavailable Unavailable Wilson, Shannon BINGO CASHIER Unavailable Unavailable Wilson, Shannon BINGO CASHIER Unavailable Unavailable Wilson, Shannon BINGO CASHIER Unavailable Unavailable Wilson, Shannon BINGO CASHIER Unavailable Unavailable Wilson, Shannon BINGO CASHIER Unavailable Unavailable Wilson, Shannon BINGO CASHIER Unavailable Unavailable Wilson, Shannon BINGO CASHIER Unavailable Unavailable Wilson, Shannon BINGO CASHIER Unavailable Unavailable Wilson, Shannon BINGO CASHIER Unavailable Unavailable Casa, Karla CUFF SETTER CUFF SETTER Unavailable Unavailable Chelsey Alejandra Unavailable [phone] Casa, A Karla CUFF SETTER Unavailable Unavailable Casa, A Karla CUFF SETTER Unavailable Unavailable Casa, A Karla CUFF SETTER Unavailable Unavailable Casa, A Karla CUFF SETTER Unavailable Unavailable Casa, A Karla CUFF SETTER Unavailable Unavailable Casa, A Karla CUFF SETTER Unavailable Unavailable Casa, A Karla CUFF SETTER Unavailable Unavailable Casa, A Karla CUFF SETTER Unavailable Unavailable Casa, A Karla CUFF SETTER Unavailable Unavailable Casa, A Karla CUFF SETTER Unavailable Unavailable Casa, A Karla CUFF SETTER Unavailable Unavailable Casa, A Karla CUFF SETTER Unavailable Unavailable Casa, A Karla CUFF SETTER Unavailable Unavailable Casa, A Karla CUFF SETTER Unavailable Unavailable Casa, A Karla CUFF SETTER Unavailable Unavailable Casa, A Karla CUFF SETTER Unavailable Unavailable Casa, A Karla CUFF SETTER Unavailable Unavailable Casa, A Karla CUFF SETTER Unavailable Unavailable Casa, A Karla CUFF SETTER Unavailable Unavailable Casa, A Karla CUFF SETTER Unavailable Unavailable Casa, A Karla CUFF SETTER Unavailable Unavailable Casa, A Karla CUFF SETTER Unavailable Unavailable Casa, A Karla CUFF SETTER Unavailable Unavailable Casa, A Karla CUFF SETTER Unavailable Unavailable Casa, A Karla CUFF SETTER Unavailable Unavailable Casa, A Karla CUFF SETTER Unavailable Unavailable Casa, A Karla CUFF SETTER Unavailable Unavailable Casa, A Karla CUFF SETTER Unavailable Unavailable Casa, A Karla CUFF SETTER Unavailable Unavailable Casa, A Karla CUFF SETTER Unavailable Unavailable Casa, A Karla CUFF SETTER Unavailable Unavailable Re-disclosure Warning The records that [...] is protected by Article 27-F of the [facility] Public Health law. If you continue you may have access to information: Regarding HIV / AIDS; Provided by facilities licensed or operated by the [facility] Office of Mental Health; or Provided by the [facility] Office for People With Developmental Disabilities. If such information is present, then the following [facility] mandated warning applies: This information has been [...] law may result in a fine or longterm sentence or both. A general authorization for the release of medical or other information is NOT sufficient authorization for further disc losure. Allergies and Adverse Reactions Type Description Substance Reaction Status Data Source(s ) Allergy to substance Allergy to substance Allergy to substance EL ([facility]) Family History Family Member Name Family Member Gender Family Member Status Date o f Status Description Data Source(s) Unknown Female Condition [facility] Unknown Female Condition [facility] Encounters Encounter Providers Location Date Indications Data Source(s ) Unknown [address] [facility] [place] [address] 04/07/2021 12:00:00 AM EDT eCW1 ([facility]) Unknown [address] [facility] [address] 04/07/2021 12:00:00 AM EDT eCW1 ([facility]) Unknown [address] [facility] [address] 04/07/2021 12:00:00 AM EDT eCW1 ([facility]) Outpatient [address] [facility] [address] 02/07/2021 12:00:00 AM EDT eCW1 ([facility]) Outpatient Attender: Shannon young 01/23/2021 02:00:00 PM EDT MEDENT ([facility] ([facility]) [facility] [address] [place] [address] 12/28/2020 12:00:00 AM EDT eCW1 ([facility]) Outpatient [address] [facility] [id number] 11/22/2020 12:00:00 AM EDT eCW1 ([facility]) Unknown [address] [facility] [address] 10/04/2020 12:00:00 AM EDT eCW1 ([facility]) Outpatient [address] [facility] [address] 09/30/2020 12:00:00 AM EDT eCW1 ([facility]) [place] [address] [facility] [place] [address] 09/02/2020 12:00:00 AM EST eCW1 ([facility]) [place] [facility] [place] [address] [place] [address], Ph. Attender: Chelsey Alejandra [place] - [facility] Medical 05/25/2020 12:00:00 AM EST EL ([facility]) Outpatient Attender: BENEDICT MCMULLEN 04/09/2020 03:44:00 P M EDT [facility]/05/2020 12:2 5:01 AM EDT [facility] Outpatient Attender: BENEDICT MCMULLEN 03/29/2020 02:39:00 P M EDT [facility] Outpatient Attender: BENEDICT JOHN 2020 03:04:00 P M EDT [facility] Out[facility] 03/10/2020 03:39:00 P M EDT [facility] Medications Medication Brand Name Start Date Product Form Dose Route Admi nistrative Instructions Pharmacy Instructions Status Indications Reaction Description Data Source(s) Ibuprofen 800 MG Oral Tablet Ibuprofen 01/23/2021 12:00:00 AM EDT ORAL completed MEDENT ([facility]) Medrol Medrol 01/23/2021 12:00:00 AM EDT completed MEDENT ([facility]) tizanidine 4 MG Oral Tablet Tizanidine HCL 01/23/2021 12:00:00 AM EDT ORAL completed MEDENT ([facility]) Decadron(Per 1MG)Dexamethasone Sodium Phosphate Injection 01/23/2021 12:00:00 AM EDT completed MEDENT ([facility]) Medication administered onsite Loestrin Fe 1.5/30 1.5-30 MG-MCG Loestrin Fe 1.5/30 1.5-30 M G-MCG 09/02/2020 12:00:00 AM EST 1.0 {tablet} active Loestrin Fe 1.5/30 1.5-30 MG-MCG eCW1 ([facility]) Loestrin Fe 1.5/30 1.5-30 MG-MCG Loestrin Fe 1.5/30 1.5-30 M G-MCG 09/02/2020 12:00:00 AM EST 1.0 {tablet} active Loestrin Fe 1.5/30 1.5-30 MG-MCG eCW1 ([facility]) Loestrin Fe 1.5/30 1.5-30 MG-MCG Loestrin Fe 1.5/30 1.5-30 M G-MCG 09/02/2020 12:00:00 AM EST 1.0 {tablet} active Loestrin Fe 1.5/30 1.5-30 MG-MCG eCW1 ([facility]) Loestrin Fe 1.5/30 1.5-30 MG-MCG Loestrin Fe 1.5/30 1.5-30 M G-MCG 09/02/2020 12:00:00 AM EST 1.0 {tablet} active Loestrin Fe 1.5/30 1.5-30 MG-MCG eCW1 ([facility]) Loestrin Fe 1.5/30 1.5-30 MG-MCG Loestrin Fe 1.5/30 1.5-30 M G-MCG 09/02/2020 12:00:00 AM EST 1.0 {tablet} active Loestrin Fe 1.5/30 1.5-30 MG-MCG eCW1 ([facility]) Loestrin Fe 1.5/30 1.5-30 MG-MCG Loestrin Fe 1.5/30 1.5-30 M G-MCG 09/02/2020 12:00:00 AM EST 1.0 {tablet} active Loestrin Fe 1.5/30 1.5-30 MG-MCG eCW1 ([facility]) Loestrin Fe 1.5/30 1.5-30 MG-MCG Loestrin Fe 1.5/30 1.5-30 M G-MCG 09/02/2020 12:00:00 AM EST 1.0 {tablet} active Loestrin Fe 1.5/30 1.5-30 MG-MCG eCW1 ([facility]) Loestrin Fe 1.5/30 1.5-30 MG-MCG Loestrin Fe 1.5/30 1.5-30 M G-MCG 09/02/2020 12:00:00 AM EST 1.0 {tablet} active Loestrin Fe 1.5/30 1.5-30 MG-MCG eCW1 ([facility]) Loestrin Fe 1.5/30 1.5-30 MG-MCG Loestrin Fe 1.5/30 1.5-30 M G-MCG 09/02/2020 12:00:00 AM EST 1.0 {tablet} active Loestrin Fe 1.5/30 1.5-30 MG-MCG eCW1 ([facility]) Insurance Providers Payer name Policy type / Coverage type Policy ID Covered libertarian ID Covered libertarian's relationship to gordon Policy Gordon Plan Information Managed Care - [facility] Community Plan S [id number] S [id number] [facility] [id number] SP [id number] Managed Care - [facility] Community Plan S [id number] S [id number] Medicaid O [id number] S [id number] UN COMMUNITY PLAN [facility] [id number] SP [id number] [facility] [id number] SP [id number] [facility] O [id number] S [id number] ANSI-Medicaid [id number] MARYAN [id number] SP [id number] [facility] Health Maintenance Organization (HMO) [id number] Self [id number] MEDICAID [id number] SP [id number] MEDICAID [id number] SP [id number] [facility] [id number] [place] [id number] SELF PAY ONLY [id number] SP [id number] SELF PAY ONLY [id number] SP [id number] [facility] [id number] SP [id number] [facility] [id number] SP [id number] [facility] P [id number] S [id number] Problems, Conditions, and Diagnoses Code Display Name Description Problem Type Effective Dates Data Source(s) N93.9 Abnormal uterine bleeding Abnormal uterine bleeding Pr oblem 02/08/2021 12:00:00 AM EDT eCW1 ([facility]) N80.9 Endometriosis Endometriosis determined by laparoscopy Problem 12/28/2020 12:00:00 AM EDT eCW1 ([facility]) N94.19 Pain in female genitalia on intercourse Dyspareunia due to medical condition in female Problem 11/22/2020 12:00:00 AM EDT eCW1 ([facility] to [facility]) N94.10 Pain in female genitalia on intercourse Dyspareunia due to non- psychogenic cause in female Problem 09/30/2020 12:00:00 AM EDT eCW1 ([facility]) E28.2 Polycystic ovaries PCOS (polycystic ovarian syndrome) Problem 09/30/2020 12:00:00 AM EDT eCW1 ([facility]) E66.9 Obesity Obesity Problem 09/02/2020 12:00:00 AM ES T eCW1 ([facility]) N94.6 Dysmenorrhea Dysmenorrhea Problem 09/02/2020 12:00:00 A M EST eCW1 ([facility]) N92.6 Irregular menstrual bleeding Irregular menstrual bleed ing Problem 09/02/2020 12:00:00 AM EST eCW1 ([facility]) Surgeries/Procedures Procedure Description Date Indications Data Source(s) Therapeutic, Prophylactic Or Diagnostic Injection Subq/Im 01/23/2021 12:00:00 AM EDT MEDENT ([facility]) Therapeutic, Prophylactic Or Diagnostic Injection Subq/Im 01/23/2021 12:00:00 AM EDT MEDENT ([facility]) OFFICE OUTPATIENT NEW 30 MINUTES 01/23/2021 12:00:00 A M EDT MEDENT ([facility]) Results ID Date Data Source [id number] 04/13/2021 12:00:00 AM EDT [facility] Name Value Range Interpretation Code Description Data Rubi rce(s) Supporting Document(s) SARS-CoV2 Rapid Antigen Negative [facility] This lab was reported by [facility]. ID Date Data Source [id number] 12/05/2020 08:05:00 AM EDT [facility] Name Value Range Interpretation Code Description Data Rubi rce(s) Supporting Document(s) SARS-CoV-2 (COVID-19) RNA [Presence] in Respiratory specimen by STORM with probe detection Not Detected [facility] This lab was ordered by [facility] and reported by [employer]. ID Date Data Source TESTOSTERONE FREE & TOTAL 09/02/2020 12:00:00 AM EST eCW1 ([facility]) Name Value Range Interpretation Code Description Data Rubi rce(s) Supporting Document(s) 0.7 0.0-4.2 eCW1 ([facility]) 9.0 8-48 eCW1 ([facility]) ID Date Data Source Dehydroepiandrosterone Sulfate 09/02/2020 12:00:00 AM EST eC W1 ([facility]) Name Value Range Interpretation Code Description Data Rubi rce(s) Supporting Document(s) Dehydroepiandrosterone sulfate (DHEA-S) [Mass/volume] in Ser um or Plasma 37.5 84.8-378.0 eCW1 ([facility]ter) ID Date Data Source PROLACTIN 09/02/2020 12:00:00 AM EST eCW1 ([facility] to [facility]) Name Value Range Interpretation Code Description Data Rubi rce(s) Supporting Document(s) 6.8 eCW1 ([facility]) ID Date Data Source [id number] 09/02/2020 12:00:00 AM EST eCW1 ([facility]) Name Value Range Interpretation Code Description Data Rubi rce(s) Supporting Document(s) Hemoglobin A1c/Hemoglobin.total in Blood 5.3 eCW1 ([facility]) ID Date Data Source FREE T4 & TSH PANEL 09/02/2020 12:00:00 AM EST eCW1 ([facility] to [facility]) Name Value Range Interpretation Code Description Data Rubi rce(s) Supporting Document(s) 2.920 0.358-3.740 eCW1 ([facility]) 0.83 0.76-1.46 eCW1 ([facility]) ID Date Data Source FSH & LH EVAL 09/02/2020 12:00:00 AM EST eCW1 ([facility] to [facility]) Name Value Range Interpretation Code Description Data Rubi rce(s) Supporting Document(s) 5.3 eCW1 ([facility]) 1.8 eCW1 ([facility]) ID Date Data Source [id number] 03/29/2020 02:39:41 PM EDT [facility] Measurements & CalculationsHeight: 69 inches (5 [...] wellnessHave you seen a dentist? Yes - [facility] LerayIntake performed by: Janice Brannon MA, March [...] medication working well. Pt states Therapy with Chelsey also going well. Pt denies any new concerns today. HPI performed by: Karla MCMULLEN, March 29, 2020 3:02 PMTransitions of Care InboundProblem ReviewProblem List was reviewed and/or updated during this visit.Medication Reconciliation & ReviewMedication List was reviewed and/or updated during this visit, including review of any agrp-net-kqzknaw medications, herbal therapies, and/or supplements.Allergy ReviewAllergy List [...] to pandemic. getting ready for PCS to [place]. Instructions: lease continue medications as prescribed. Please try to monitor, report an avoid triggers causing increased anxiety or depression.Anxiety depression (ICD-300.09) (FXU00-X41.8) Assessment: improving per patient. Taking medications as prescribed. Mother of 4 children. 2 are school age. online learning due to pandemic. getting ready for PCS to [place]. Instructions: Please continue medications as prescribed. Please try to monitor, report an avoid triggers causing increased anxiety or depression.Assessment not SavedEncounter for administrative examinations; unspecified (HGF78-Z28.9): Patient Instructions/Care Plan: Anxiety depression: lease continue medications as prescribed. Please try to monitor, report an avoid triggers causing increased anxiety or depression.Anxiety depression: Please continue medications as prescribed. Please try to monitor, report an avoid triggers causing increased anxiety or depression. Plan developed in collaboration with patient and/or familyMedications:HYDROXYZINE HCL 50 MG ORAL TABLETPROZAC 20 MG ORAL CAPSULEVITAMIN D3 90326 UNIT ORAL TABLETNAPROXEN 500 MG ORAL TABLETAllergies:No Known Allergies (updated 02/23/2020) Orders:Adult - Ofc Vst, EST, Level III [[id number]] Follow-Up Return to clinic: 3 months for follow up. Clinical Visit Summary Completed Name Value Range Interpretation Code Description Data Rubi rce(s) Supporting Document(s) Procedure Social History Code Duration Value Status Description Data Source(s ) Smoking 02/03/2021 12:00:00 AM EDT Never Smoker completed Never S moker eCW1 ([facility]) Smoking 02/03/2021 12:00:00 AM EDT Never Smoker completed Never S moker eCW1 ([facility]) Smoking 02/03/2021 12:00:00 AM EDT Never Smoker completed Never S moker eCW1 ([facility]) Smoking 02/03/2021 12:00:00 AM EDT Never Smoker completed Never S moker eCW1 ([facility]) Smoking 01/23/2021 12:00:00 AM EDT Patient has never smoked co mpleted Patient has never smoked MEDENT ([facility]) Smoking 12/28/2020 12:00:00 AM EDT Never Smoker completed Never S moker eCW1 ([facility]) Smoking 11/22/2020 12:00:00 AM EDT Never Smoker completed Never S moker eCW1 ([facility]) Smoking 09/29/2020 12:00:00 AM EDT Never Smoker completed Never S moker eCW1 ([facility]) Smoking 09/29/2020 12:00:00 AM EDT Never Smoker completed Never S moker eCW1 ([facility]) Smoking 09/02/2020 12:00:00 AM EST Never Smoker completed Never S moker eCW1 ([facility]) Vital Signs ID Date Data Source UNK Name Value Range Interpretation Code Description Data Source(s) Body weight 235 [lb_av] 235 [lb_av] eCW1 ([facility]) Body weight 106.59 kg 106.59 kg W1 ([facility]) Body height 69 [in_i] 69 [in_i] W1 ([facility] to [facility]) Body mass index (BMI) [Ratio] 34.7 kg/m2 34.7 k g/m2 eCW1 ([facility]) Systolic blood pressure 108 mm[Hg] 108 mm[Hg] e CW1 ([facility]) Diastolic blood pressure 78 mm[Hg] 78 mm[Hg] eCW1 ([facility]) Oxygen saturation in Arterial blood by Pulse oximetry 98 % 98 % MEDENT ([facility]) Systolic blood pressure 113 mm[Hg] 113 mm[Hg] M EDENT ([facility]) Diastolic blood pressure 80 mm[Hg] 80 mm[Hg] MEDENT ([facility]) Heart rate 83 /min 83 /min MEDENT ([facility]) Respiratory rate 16 /min 16 /min MEDENT ( [facility]) Body weight 232.00 [lb_av] 232.00 [lb_av] MEDEN T ([facility]) Body height 69 [in_i] 69 [in_i] MEDENT ([facility]) 5'9" Body mass index (BMI) [Ratio] 34.3 kg/m2 34.3 k g/m2 MEDENT ([facility]) Body temperature 97.1 [degF] 97.1 [degF] MEDENT ([facility]) Body weight 237.2 [lb_av] 237.2 [lb_av] eCW1 ([facility]) Body weight 107.59 kg 107.59 kg eCW1 ([facility]) Body height 69 [in_i] 69 [in_i] eCW1 ([facility] to [facility]) Body mass index (BMI) [Ratio] 35.02 kg/m2 35.02 kg/m2 eCW1 ([facility]) Systolic blood pressure 122 mm[Hg] 122 mm[Hg] e CW1 ([facility]) Diastolic blood pressure 80 mm[Hg] 80 mm[Hg] eCW1 ([facility]) Body weight 232 [lb_av] 232 [lb_av] eCW1 ([facility]) Body height 69 [in_i] 69 [in_i] eCW1 ([facility]) Body mass index (BMI) [Ratio] 34.26 kg/m2 34.26 kg/m2 eCW1 ([facility]) Systolic blood pressure 112 mm[Hg] 112 mm[Hg] e CW1 ([facility]) Diastolic blood pressure 80 mm[Hg] 80 mm[Hg] eCW1 ([facility]) Body weight 231.6 [lb_av] 231.6 [lb_av] eCW1 ([facility]) Body weight 105.05 kg 105.05 kg eCW1 ([facility]) Body height 68.5 [in_i] 68.5 [in_i] eCW1 ([facility]) Body mass index (BMI) [Ratio] 34.7 kg/m2 34.7 k g/m2 eCW1 ([facility]) Systolic blood pressure 120 mm[Hg] 120 mm[Hg] e CW1 ([facility]) Diastolic blood pressure 74 mm[Hg] 74 mm[Hg] eCW1 ([facility]) Body weight 232 [lb_av] 232 [lb_av] eCW1 ([facility]) Body height 68.5 [in_i] 68.5 [in_i] W1 ([facility]) Body mass index (BMI) [Ratio] 34.76 kg/m2 34.76 kg/m2 [facility] ([facility]) Systolic blood pressure 108 mm[Hg] 108 mm[Hg] e CW1 ([facility]) Diastolic blood pressure 78 mm[Hg] 78 mm[Hg] eCW1 ([facility]) Patient Treatment Plan of Care Planned Activity Planned Date Details Description Data Source (s) Kevyn Chirinos .12/12 1.5-30 MG-MCG 09/02/2020 12:00:00 AM EST eC1 ([facility])
[2021-05-04] MEDS ORDERED: HYDR-643 PO (06:36)
[2021-05-04 06:53] LABS: HEMATOCRIT 39.7 % (36.0-47.0); HEMOGLOBIN 13.1 g/dl (12.0-15.5); MEAN CORPUSCULAR VOLUME 87.8 fl (80.0-96.0); PLATELET COUNT, AUTOMATED 225 10^3/uL (150-450); RED BLOOD COUNT 4.52 10^6/uL (4.00-5.40)
[2021-05-04] MEDS ORDERED: METHYLENE BLUE 0.5% (5MG/ML) 10 ML AMP (PROVAYBLUE) As Ordered ONE (07:09)
[2021-05-04] MEDS ORDERED: BUPIVACAINE HCL 0.25% 30ML VIAL As Ordered ONE (07:09)
[2021-05-04] MEDS ORDERED: MIDAZOLAM INJ 2MG/2ML VIAL (J2250 PER 1MG) As Ordered ONE (07:15)
[2021-05-04] MEDS ORDERED: SUGAMMADEX SODIUM 500 MG/5 ML VIAL (BRIDION) As Ordered ONE (07:15)
[2021-05-04] MEDS ORDERED: dexameTHASONE 4 MG/ML 1ML VIAL (J1100 PER 1MG) As Ordered ONE (07:15)
[2021-05-04] MEDS ORDERED: fentaNYL 100 MCG/2 ML INJECTION (J3010) As Ordered ONE (07:15)
[2021-05-04] MEDS ORDERED: ROCURONIUM BROMIDE 50 MG/5 ML VIAL As Ordered ONE ×2 (07:15→08:26)
[2021-05-04] MEDS ORDERED: ONDANSETRON 4MG/2ML VIAL As Ordered ONE (07:15)
[2021-05-04] MEDS ORDERED: LIDOCAINE 2% 100MG/5ML SDV (FOR ANES.) As Ordered ONE (07:15)
[2021-05-04] MEDS ORDERED: HYDROmorphone HCL 2 MG/ML 1ML VIAL As Ordered ONE (07:15)
[2021-05-04] MEDS ORDERED: ACETAMINOPHEN 1000MG 100ML IV BTL (OFIRMEV) (J0131 PER 10MG) As Ordered ONE (07:15)
[2021-05-04] MEDS ORDERED: propofoL 200 MG/20 ML VIAL As Ordered ONE (07:15)
[2021-05-04] MEDS ORDERED: KETOROLAC 60MG 2ML VIAL As Ordered ONE (07:20)
[2021-05-04] MEDS ORDERED: LIDOCAINE 5% OINT 30GM TUBE As Ordered ONE (07:58)
[2021-05-04] MEDS ORDERED: LR 1,000 ML IV SCH ×2 (09:50→10:10)
[2021-05-04] MEDS ORDERED: OXYC1TAB23 PO (09:50)
[2021-05-04] MEDS ORDERED: PROMETHAZINE INJ 25 MG/ML VIAL (J2550) IV PRN (09:50)
[2021-05-04] MEDS ORDERED: IBUP80TA PO (09:52)
[2021-05-04] MEDS ORDERED: DOCU100C16 PO (09:52)
--- NOTE | 2021-05-04 09:57 | ROOPDOC ---
[facility] Report Of Operation Report of Operation DATE OF PROCEDURE: 05/04/2021 PREPROCEDURE DIAGNOSES: Abnormal uterine bleeding, chronic pelvic pain, recurrent left-sided pain/ovarian cysts. POSTPROCEDURE DIAGNOSES: Same. PROCEDURE: Robotic-assisted total laparoscopic hysterectomy, bilateral salpingectomy, left oophorectomy, cystoscopy SURGEON: Albert Hall D.O. [employer]ACOG [employer]ET[employer] APPRENTICE: Maryjane Iglesias ANESTHESIA: General endotracheal. ESTIMATED BLOOD LOSS: Approximately 50 mL. FLUIDS REPLACED: 1100 mL LR URINE OUTPUT: 100 mL COMPLICATIONS: None. FINDINGS: Normal-appearing ovaries bilaterally. Endometriosis present in the posterior cul-de-sac along the uterosacral ligament; excised in the process of the hysterectomy. Uterus was approximately 8 centimeters in greatest dimension. Cystoscopy: Bilateral ureteral orifice efflux, no bladder injury/suture material. PREOPERATIVE ANTIBIOTIC PROPHYLAXIS: Ancef 2 g IV 1. SPECIMEN(S): Uterus w/ cervix, bilateral fallopian tubes, left ovary DESCRIPTION OF PROCEDURE: The patient was counseled, consented on the respective benefits, indications, alternatives of procedure. Informed consent was obtained. She was taken to the operating room with an IV running. She was placed on the operating table in dorsal supine position. Gen. anesthesia was administered and the airway was secured without any difficulty. She was placed in the low lithotomy position. . She was prepared and draped in the normal sterile fashion. A time out was performed per protocol. A Mancuso catheter was placed under sterile conditions. A sterile speculum was placed resulting in good visualization of the cervix. A single-tooth tenaculum was used to grasp the anterior lip cervix. The cervix was sequentially dilated with Silas dilators. A V-Care uterine manipulator was placed without any difficulty. The single-tooth tenaculum was removed, as well as the speculum. A sterile glove switch was performed. Attention was turned to the abdomen. Supraumbilical 8 mm incision was placed in the midline. The varies needle was inserted through this incision. Intraperitoneal placement was confirmed with e ase of flow of normal saline, positive drop test, no return on aspiration, and an opening pressure of less than 10 mmHg upon initial insufflation. The abdomen was insufflated with 2 L of gas. The Veress needle was removed. Through the incision, the robotic trochar/cannula was inserted into the intraperitoneal cavity under direct visualization. No incidental bleeding nor injury was noted. Patient was placed in 30 Trendelenburg. The right and left trocars/cannulas were placed on both the right and left side through 8 mm incisions, guided by laparoscopic visualization. No incidental bleeding nor injury was noted. The robot was docked in typical fashion. The instruments were inserted, guided by laparoscopic visualization. My attention was turned to the robotic console. Using the vessel sealer device, the right fallopian tube was amputated. The fallopian tube was brought through the assist-port cannula without any difficulty. The right utero-ovarian ligament and right round ligament were sequentially clamped, coagulated and transected with the vessel sealer device. The vesicouterine peritoneum was dissected with the vessel sealer device to create the bladder flap, thus mobilizing the lower uterine segment and cervix off of the bladder. The right uterine vasculature was sequentially clamped, coagulated and transected above the colpotomy cup. The left utero-ovarian ligament and left round ligament were sequentially clamped, coagulated and transected with the vessel sealer device. The remainder of the bladder flap was dissected using the vessel sealer device and blunt dissection. The left uterine vasculature was sequentially clamped, coagulated and transected above the colpotomy cup. The outline of the entire V- care colpotomy cup was able to be delineated. Excellent blanching of the uterus was noted. A circumferential colpotomy was performed using the da Roseanna monopolar jose manuel, following the contour of the cup. The amputated cervix and uterus were brought through the colpotomy into and out of the vagina, intact as one unit. The left fallopian tube/IP ligament were grasped and elevated and medially deviated. The left ureter was identified and noted to be well away from the planned surgical site. The IP ligament was then sequentially clamped coagulated and transected using the vessel sealer device. The fimbriated distal end of the fallopian tube was amputated in this process as well. The amputated left ovary and distal end of the fallopian tube were placed through the colpotomy. The colpotomy was closed with the V-lock barbed suture in running fashion, thus creating the vaginal cuff. Excellent hemostasis was noted throughout the steps above. Lynette was placed over the vaginal cuff to ensure hemostasis. The instruments were removed from the abdomen and the robot was un- docked. The gas was released from the abdomen and the patient was taken out of Trendelenburg. I re-scrubbed, and attention was turned to the pelvis. The specimens were removed from the vagina. The Mancuso catheter was removed. The cystoscope was placed transurethrally into the bladder and normal saline was instilled. No bladder injury/suture material was noted. IV methylene blue had been administered by anesthesia and bilateral UO efflux was confirmed. The fluid was drained out of the bladder through the cystoscope device, then the cystoscope was removed. The vagina was copiously irrigated. A sterile digital vaginal exam revealed no significant bleeding and an intact vaginal cuff. A sterile glove switch was performed. The da Roseanna cannulas were removed. The skin incisions were closed with 4-0 Monocryl in subcuticular fashion. Sponge, needle and instrument counts were correct per protocol. The patient tolerated the entire procedure very well. She was transferred to the PACU in good and stable condition. DO YADIRA Vanessa JONATHAN R. DO May 04, 2021 09:57
[2021-05-04] MEDS ORDERED: oxyCODONE 5MG TAB PO PRN (10:10)
[2021-05-04] MEDS ORDERED: ONDANSETRON 4MG/2ML VIAL IV PRN (10:10)
[2021-05-04] MEDS ORDERED: HYDROMORPHONE HCL 0.5 MG/ 0.5 ML SYRINGE (J1170 PER 1) IV PRN (10:10)
[2021-05-04] MEDS ORDERED: fentaNYL 100 MCG/2 ML INJECTION (J3010) IV PRN (10:10)
[2021-05-04 12:30] VITALS: BP 115/57
[2021-05-04 13:00] VITALS: BP 110/62
[2021-05-04 13:30] VITALS: BP 101/64
[2021-05-04 14:30] VITALS: BP 116/69
[2021-05-04 15:30] VITALS: BP 118/56
[2021-05-04] MEDS ORDERED: KETOROLAC 30 MG/ML 1ML VIAL IV SCH (16:00)
[2021-05-04 16:30] VITALS: BP 107/56
[2021-05-04] MEDS ORDERED: DOCUSATE SODIUM 100MG CAPSULE PO SCH (21:00)
[2021-05-05] MEDS ORDERED: IBUPROFEN 800 MG TAB PO SCH (12:00)
== END 2021-05-04 19:18 | disposition home or self-care (01) ==
LOC: M SDC 06:09 → M PED 12:10 → M SDC 19:18
PROVIDERS: ATTEND Obstetrics & Gynecology
DX: N93.9 Abnormal uterine and vaginal bleeding, unspecified (principal); D25.2 Subserosal leiomyoma of uterus; K21.9 Gastro-esophageal reflux disease without esophagitis; G43.909 Migraine, unspecified, not intractable, without status migrainosus; F41.9 Anxiety disorder, unspecified; F32.9 Major depressive disorder, single episode, unspecified; Z79.899 Other long term (current) drug therapy
CPT/HCPCS: 36415; 58571; 84702; 85027; 86850; 86900; 86901; 88307; J0131; J0690; J1100; J1170; J1885; J2250; J2405; J3010; Q9968; S2900